=== PATIENT | male | born 1940 | race Caucasian/White ===

== ENCOUNTER 2019-02-16 16:50 | Outpatient (RCR) | payer MEDICARE, OTHER, SELFPAY | END 2019-03-01 00:01 | LOC: WOUND 16:50 | PROVIDERS: Family Provider Family Medicine; Visit Provider Nurse Practitioner Family | DX: D64.9 Anemia, unspecified (principal); L89.312 Pressure ulcer of right buttock, stage 2; L89.892 Pressure ulcer of other site, stage 2; L89.222 Pressure ulcer of left hip, stage 2 ==

== ENCOUNTER 2019-04-22 08:55 | Outpatient (CLI) | payer MEDICARE, OTHER, SELFPAY ==
--- NOTE | 2019-04-22 09:02 | FL_ITS ---
WS: [id number] [place] upper GI w air [id number] REASON FOR EXAM: ESOPHAGEAL LESION FLUOROSCOPY TIME: 3 minutes FINDINGS: Barium passed through the esophagus there was no obstructing lesion no diverticulum or mass es seen The vallecula were normal in the hypopharynx. There is deviation of the esophagus slightly towards the left side. The stomach appeared to be normal there is no ulcerated areas seen in the stomach. The duodenal cap d uodenal C curve proximal small bowel were all normal. IMPRESSION: The esophagus was patent there was no deformity seen. The stomach, duodenum, and small bowel all appear to be within normal limits.
== END 2019-04-22 08:56 | disposition home or self-care (01) ==
LOC: RAD 08:58
PROVIDERS: Family Provider Family Medicine; PCP Family Medicine; Visit Provider Surgery
DX: K22.9 Disease of esophagus, unspecified (principal)
CPT/HCPCS: 74246

== ENCOUNTER 2020-06-03 05:39 | Inpatient (IN) | payer OTHER, MEDICARE, SELFPAY ==
[2020-06-03] VITALS (94 sets, daily range): BP systolic 62–112; BP diastolic 40–85; PULSE 75–157; RESP 13–36; TEMP 35.8–37.1; O2SAT 86–99; BMI 27.8
--- NOTE | 2020-06-03 05:48 | XRR_ITS ---
PROCEDURE INFORMATION: Exam: XR Chest Exam date and time: 06/03/2020 5:52 AM Age: 80 years old Clinical indication: Patient HX: Found unresponsive TECHNIQUE: Imaging protocol: XR of the chest Views: 1 view. COMPARISON: CR Chest 1 [place] [id number] 01/22/2019 10:59 AM FINDINGS: Lungs: No CHF/pulmonary edema. Mild right lower lung opacities could represent atelectasis and/or pneumonia. Please correlate clinically. The visible left lung appears essentially clear. Pleural spaces: No visible pneumothorax. No definite pleural fluid. Heart/Mediastinum: Heart size is within normal limits. Diaphragm: Elevation of the right hemidiaphragm. Bones/joints: No significant acute finding. Other findings: Some limitations due to patient rotation. XR/XR chest 1V portable [id number] IMPRESSION: 1. Mild right lower lung opacities could represent atelectasis and/or pneumonia. 2. Other findings discussed above.
--- NOTE | 2020-06-03 05:48 | ECG_ITS ---
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 Measurements Intervals [place] Rate: 124 P: 44 DC: 181 QRS: 39 QRSD: 90 T: 56 QT: 397 QTc: 572 Interpretive Statements SINUS TACHYCARDIA POSSIBLE RIGHT VENTRICULAR CONDUCTION DELAY [RSR (QR) IN V1/V2] NONSPECIFIC ST & T-WAVE ABNORMALITY ABNORMAL RHYTHM ECG Compared to ECG 01/22/2019 10:12:36 T-wave abnormality now present Sinus rhythm no longer present Electronically Signed On 06-03-2020 22:46:54 CDT by Breezy Villagomez M.D. [id number]
[2020-06-03 05:49] LABS: Glucose Point of Care 149 mg/dL (70-110)
[2020-06-03] MEDS: naloxone 0.4 mg/ml SDV IVP (05:54)
--- NOTE | 2020-06-03 05:55 | ED_ITS ---
Documented by User: Kyler Cooper, 06/03/20 06:09 HPI - General Adult General: Chief complaint: General Medical Stated complaint: unresponsive Time Seen by Provider: 06/03/20 05:47 History of Present Illness: HPI narrative: 80-year-old [facility] patient, who is currently a DNR. He was found to be unresponsive in the [facility] at the time to give medications this morning. His O2 sat was evidently 50% on 3 L. 911 was called. He presents here unresponsive with a GCS of 3. His blood pressure was incredibly low, and he was given push dose epinephrine to raise it. He is on 15 L of oxygen, with saturations in the mid 80s. Other information not really available at this time. His has just arrived, and notes that last week, he had a birthday, and was doing quite well. She also notes that he has not been taking Coumadin, as he had a bleeding ulcer and his blood count kept falling. In the fpc, they had given him some morphine at 1 point. Paramedics gave him 0.4 of Narcan without any improvement Onset (ago): unknown Radiation: non-radiation Severity: moderate Associated symptoms: Reports other Treatments prior to arrival: other Review of Systems General: Reports: ROS unobtainable due to medical condition and ROS unobtainable due to mental status PFS ED PFSH: Medical History Asthma CHF (congestive heart failure) COPD (chronic obstructive pulmonary disease) Depression Essential tremor History of anal fissures Hypertension Morbid obesity Surgical History History of colonoscopy (~2009) History of esophagogastroduodenoscopy (EGD) (~12/2018) History of hemorrhoidectomy History of knee surgery (~2010) Family History Mother Diabetes Sister Diabetes Daughter Hypertension Father Heart disease Denies family history of Anesthesia complication Bleeding disorder Social History Smoking and tobacco status: former smoker Quit status (tobacco): has quit using tobacco Second hand smoke exposure: No Alcohol intake: never Adopted: No Caregiver/support person: Yes Lives independently: No (fpc ) Housing: Longterm Marital status: Highest education level completed: High School Graduate service: No Current occupational status: disabled Current occupational exposures/hazards: No Pets and animals: No History of recent travel: No Sexually active: No Current gender identity: Male Jillian/Taoist: [employer] Special jillian needs: No Agree to transfusion: No Financial difficulty paying for basics: Decline to Answer Physical Exam Const: EXAM LIMITATIONS: altered mental status GENERAL APPEARANCE: ill appearing ORIENTATION/CONSCIOUSNESS: Yes Other orientation findings (Unresponsive) Chest: CHEST: Yes Symmetrical chest wall rise Resp: EFFORT & INSPECTION: Yes tachypneic and Yes respiratory distress AUSCULTATION: rales and diminished lung sounds Cardio: COMMON NORMALS: regular rhythm RATE: tachycardic RHYTHM: regular rhythm PERIPHERAL PULSES: brachial pulses present GI: INSPECTION: Yes abdominal distension AUSCULTATION: Yes normoactive bow el sounds Neuro: ALBINA COMA SCALE: document GCS findings Albina coma scale eye opening: None [place] coma scale verbal response: None [place] coma scale motor response: None [place] coma scale total score: 3 SENSORIUM/ORIENTATION: Yes other (Unresponsive) SPEECH: Total aphasia Course Vital Signs: Vital signs: Vital Signs Temperature 96.5 F L 06/03/20 05:39 Pulse Rate 83 06/03/20 16:14 Respiratory Rate 14 06/03/20 16:00 Blood Pressure 83/67 06/03/20 13:38 Pulse Oximetry 97 06/03/20 16:00 MDM - General Adult MDM Narrative: Medical decision making narrative: 80-year-old [facility] patient who is a DNR. He presents unresponsive, but with a pulse and blood pressure. He is quite hypoxic on exam. He is tachycardic now. Blood pressure 100/73. He was immediately placed on BiPAP with improvement in oxygenation to 95%. Blood gas as well as other laboratory and chest x-ray are pending. Patient will be checked out to Dr. Olmedo at shift change. Lab Data: Labs: Lab Results 06/03/20 06/03/20 06/03/20 Range/Units 05:44 05:44 05:44 WBC 18.1 H (4.0-10.0) 10^3/ uL RBC 4.15 (4.1-5.3) 10^6/u L Hgb 12.6 (11.7-16.6) g/dL Hct 42.1 (42.0-52.0) % MCV 101.4 H (80-94) fL MCH 30.4 (28.0-34.0) pg MCHC 29.9 L (30.0-36.0) g/dL RDW 15.7 H (12.1-15.1) % Plt Count 345 (130-400) 10^3/c mm MPV 10.5 H (7.4-10.4) fL Neut % (Auto) 84.8 % Lymph % (Auto) 6.5 % Motley % (Auto) 7.6 % Eos % (Auto) 0.1 % Baso % (Auto) 0.3 % Neut # (Auto) 15.36 H (1.8-7.7) 10^3/u L Lymph # (Auto) 1.2 (0.8-4.8) 10^3/u L Motley # (Auto) 1.4 H (0.2-0.9) 10^3/u L Eos # (Auto) 0.0 (0.0-0.8) 10^3/u L Baso # (Auto) 0.1 (0.0-0.1) 10^3/u L Nucleated RBC % (a uto) 0 % Nucleated RBCs # 0.0 /100WBC PT 15.10 H (12.1-14.9) SECO NDS INR 1.15 (0.8-1.2) APTT 29.0 (23.9-36.7) SECO NDS Specimen Type Sample Site ABG pH (7.35-7.45) ABG pCO2 (35-45) mmHg ABG pO2 (80.0-100.0) mmH g ABG HCO3 (22-26) mmol/L ABG O2 Saturation ABG Base Excess (-2.0-2.0) mmol/ L Russ Test A-a O2 Gradient (5-10) mmHg Hematocrit (42-52) % Hgb O2 Saturation (95-100) % Carboxyhemoglobin (0.4-20.1) %THgb Methemoglobin (0.4-1.5) % Total Hemoglobin (14-18) g/dL Ionized Calcium (1.1-1.4) mmol/L O2 Delivery Device O2 Liters/Min % FiO2 % Assistant Housekeeping Manager ID Sodium 141 (136-145) mmol/L Potassium 3.8 (3.5-5.1) mmol/L Chloride 102 (98-107) mmol/L Carbon Dioxide 24 (22-29) mmol/L Anion Gap 18.8 (5-19) BUN 22 (8-23) mg/dL Creatinine 0.8 (0.7-1.2) mg/dL GFR Calculation Not Reportable Glucose 151 H (65-115) mg/dL POC Glucose (70-110) mg/dL Calculated Osmolal ity 298 H (285-295) mOsm/k g Lactate (0.5-2.2) mmol/L Calcium 8.2 L (8.5-10.5) mg/dL Magnesium (1.7-2.3) mg/dL Total Bilirubin 0.6 (0.15-1.2) mg/dL AST 32 (0-40) U/L ALT 116 H (0-41) U/L Alkaline Phosphata se 129 (40-130) IU/L Creatine Kinase 23 L (39-308) U/L Troponin T Baselin e (0-15) ng/L Troponin T 120 Min [place] (0-15) ng/L Delta Troponin T (0-10) ABS# Troponin T Hi Sens 6Hr (0-15) ng/L Troponin T Hi Sens 6Hr Delta (0-12) ng/L NT-Pro-B Natriuret Pep 377 (0-450) pg/mL Total Protein 5.8 L (6.6-8.7) g/dL Albumin 3.3 L (3.5-5.2) g/dL Globulin 2.5 (1.3-4.6) g/dL Urine Color (Yellow) Urine Appearance (CLEAR) Urine pH (5-7) Ur Specific Gravit y (1.005-1.030) Urine Protein (Negative) Urine Glucose (UA) (Normal) Urine Ketones (Negative) Urine Blood (Negative) Urine Nitrate (Negative) Urine Bilirubin (Negative) Urine Urobilinogen (Negative) mg/dL Ur Leukocyte Grace ase (Negative) Urine RBC (0-2) /hpf Urine WBC (0-5) /hpf Ur Squamous Epith Cells (0-5) /hpf Amorphous Sediment /hpf Urine Bacteria (NONE) /hpf Hyaline Casts /lpf Urine Mucus /hpf 06/03/20 06/03/20 06/03/20 Range/Units 05:44 05:44 05:46 WBC (4.0-10.0) 10^3/ uL RBC (4.1-5.3) 10^6/u L Hgb (11.7-16.6) g/dL Hct (42.0-52.0) % MCV (80-94) fL MCH (28.0-34.0) pg MCHC (30.0-36.0) g/dL RDW (12.1-15.1) % Plt Count (130-400) 10^3/c mm MPV (7.4-10.4) fL Neut % (Auto) % Lymph % (Auto) % Motley % (Auto) % Eos % (Auto) % Baso % (Auto) % Neut # (Auto) (1.8-7.7) 10^3/u L Lymph # (Auto) (0.8-4.8) 10^3/u L Motley # (Auto) (0.2-0.9) 10^3/u L Eos # (Auto) (0.0-0.8) 10^3/u L Baso # (Auto) (0.0-0.1) 10^3/u L Nucleated RBC % (a uto) % Nucleated RBCs # /100WBC PT (12.1-14.9) SECO NDS INR (0.8-1.2) APTT (23.9-36.7) SECO NDS Specimen Type Sample Site ABG pH (7.35-7.45) ABG pCO2 (35-45) mmHg ABG pO2 (80.0-100.0) mmH g ABG HCO3 (22-26) mmol/L ABG O2 Saturation ABG Base Excess (-2.0-2.0) mmol/ L Russ Test A-a O2 Gradient (5-10) mmHg Hematocrit (42-52) % Hgb O2 Saturation (95-100) % Carboxyhemoglobin (0.4-20.1) %THgb Methemoglobin (0.4-1.5) % Total Hemoglobin (14-18) g/dL Ionized Calcium (1.1-1.4) mmol/L O2 Delivery Device O2 Liters/Min % FiO2 % Assistant Housekeeping Manager ID Sodium (136-145) mmol/L Potassium (3.5-5.1) mmol/L Chloride (98-107) mmol/L Carbon Dioxide (22-29) mmol/L Anion Gap (5-19) BUN (8-23) mg/dL Creatinine (0.7-1.2) mg/dL GFR Calculation Glucose (65-115) mg/dL POC Glucose 149 H (70-110) mg/dL Calculated Osmolal ity (285-295) mOsm/k g Lactate (0.5-2.2) mmol/L Calcium (8.5-10.5) mg/dL Magnesium 2.0 (1.7-2.3) mg/dL Total Bilirubin (0.15-1.2) mg/dL AST (0-40) U/L ALT (0-41) U/L Alkaline Phosphata se (40-130) IU/L Creatine Kinase (39-308) U/L Troponin T Baselin e 128 H* (0-15) ng/L Troponin T 120 Min [place] (0-15) ng/L Delta Troponin T (0-10) ABS# Troponin T Hi Sens 6Hr (0-15) ng/L Troponin T Hi Sens 6Hr Delta (0-12) ng/L NT-Pro-B Natriuret Pep (0-450) pg/mL Total Protein (6.6-8.7) g/dL Albumin (3.5-5.2) g/dL Globulin (1.3-4.6) g/dL Urine Color (Yellow) Urine Appearance (CLEAR) Urine pH (5-7) Ur Specific Gravit y (1.005-1.030) Urine Protein (Negative) Urine Glucose (UA) (Normal) Urine Ketones (Negative) Urine Blood (Negative) Urine Nitrate (Negative) Urine Bilirubin (Negative) Urine Urobilinogen (Negative) mg/dL Ur Leukocyte Grace ase (Negative) Urine RBC (0-2) /hpf Urine WBC (0-5) /hpf Ur Squamous Epith Cells (0-5) /hpf Amorphous Sediment /hpf Urine Bacteria (NONE) /hpf Hyaline Casts /lpf Urine Mucus /hpf 06/03/20 06/03/20 06/03/20 Range/Units 06:06 06:12 07:19 WBC (4.0-10.0) 10^3/ uL RBC (4.1-5.3) 10^6/u L Hgb (11.7-16.6) g/dL Hct (42.0-52.0) % MCV (80-94) fL MCH (28.0-34.0) pg MCHC (30.0-36.0) g/dL RDW (12.1-15.1) % Plt Count (130-400) 10^3/c mm MPV (7.4-10.4) fL Neut % (Auto) % Lymph % (Auto) % Motley % (Auto) % Eos % (Auto) % Baso % (Auto) % Neut # (Auto) (1.8-7.7) 10^3/u L Lymph # (Auto) (0.8-4.8) 10^3/u L Motley # (Auto) (0.2-0.9) 10^3/u L Eos # (Auto) (0.0-0.8) 10^3/u L Baso # (Auto) (0.0-0.1) 10^3/u L Nucleated RBC % (a uto) % Nucleated RBCs # /100WBC PT (12.1-14.9) SECO NDS INR (0.8-1.2) APTT (23.9-36.7) SECO NDS Specimen Type Arterial Sample Site Brachial, right ABG pH 7.15 L* (7.35-7.45) ABG pCO2 71.3 H* (35-45) mmHg ABG pO2 40.5 L (80.0-100.0) mmH g ABG HCO3 24.9 (22-26) mmol/L ABG O2 Saturation ABG Base Excess -5.4 L (-2.0-2.0) mmol/ L Russ Test N/a A-a O2 Gradient (5-10) mmHg Hematocrit 42.3 (42-52) % Hgb O2 Saturation (95-100) % Carboxyhemoglobin (0.4-20.1) %THgb Methemoglobin (0.4-1.5) % Total Hemoglobin (14-18) g/dL Ionized Calcium (1.1-1.4) mmol/L O2 Delivery Device Nrb O2 Liters/Min 15.0 % FiO2 % Assistant Housekeeping Manager ID Hinja Sodium (136-145) mmol/L Potassium (3.5-5.1) mmol/L Chloride (98-107) mmol/L Carbon Dioxide (22-29) mmol/L Anion Gap (5-19) BUN (8-23) mg/dL Creatinine (0.7-1.2) mg/dL GFR Calculation Glucose (65-115) mg/dL POC Glucose (70-110) mg/dL Calculated Osmolal ity (285-295) mOsm/k g Lactate 4.8 H* (0.5-2.2) mmol/L Calcium (8.5-10.5) mg/dL Magnesium (1.7-2.3) mg/dL Total Bilirubin (0.15-1.2) mg/dL AST (0-40) U/L ALT (0-41) U/L Alkaline Phosphata se (40-130) IU/L Creatine Kinase (39-308) U/L Troponin T Baselin e (0-15) ng/L Troponin T 120 Min [place] (0-15) ng/L Delta Troponin T (0-10) ABS# Troponin T Hi Sens 6Hr (0-15) ng/L Troponin T Hi Sens 6Hr Delta (0-12) ng/L NT-Pro-B Natriuret Pep (0-450) pg/mL Total Protein (6.6-8.7) g/dL Albumin (3.5-5.2) g/dL Globulin (1.3-4.6) g/dL Urine Color Yellow (Yellow) Urine Appearance Sl cloudy A (CLEAR) Urine pH 5 (5-7) Ur Specific Gravit y 1.020 (1.005-1.030) Urine Protein 1+ H (Negative) Urine Glucose (UA) Norm (Normal) Urine Ketones Negative (Negative) Urine Blood 3+ H (Negative) Urine Nitrate Negative (Negative) Urine Bilirubin 1+ H (Negative) Urine Urobilinogen 8 H (Negative) mg/dL Ur Leukocyte Grace ase Negative (Negative) Urine RBC 25-40 H (0-2) /hpf Urine WBC 5-10 H (0-5) /hpf Ur Squamous Epith Cells 0-4 H (0-5) /hpf Amorphous Sediment 2+ /hpf Urine Bacteria 1+ H (NONE) /hpf Hyaline Casts 15-25 H /lpf Urine Mucus 2+ /hpf 06/03/20 06/03/20 06/03/20 Range/Units 08:19 08:19 08:20 WBC (4.0-10.0) 10^3/ uL RBC (4.1-5.3) 10^6/u L Hgb (11.7-16.6) g/dL Hct (42.0-52.0) % MCV (80-94) fL MCH (28.0-34.0) pg MCHC (30.0-36.0) g/dL RDW (12.1-15.1) % Plt Count (130-400) 10^3/c mm MPV (7.4-10.4) fL Neut % (Auto) % Lymph % (Auto) % Motley % (Auto) % Eos % (Auto) % Baso % (Auto) % Neut # (Auto) (1.8-7.7) 10^3/u L Lymph # (Auto) (0.8-4.8) 10^3/u L Motley # (Auto) (0.2-0.9) 10^3/u L Eos # (Auto) (0.0-0.8) 10^3/u L Baso # (Auto) (0.0-0.1) 10^3/u L Nucleated RBC % (a uto) % Nucleated RBCs # /100WBC PT (12.1-14.9) SECO NDS INR (0.8-1.2) APTT (23.9-36.7) SECO NDS Specimen Type Arterial Sample Site Brachial, left ABG pH 7.25 L (7.35-7.45) ABG pCO2 55.7 H (35-45) mmHg ABG pO2 60.7 L (80.0-100.0) mmH g ABG HCO3 24.1 (22-26) mmol/L ABG O2 Saturation 90.0 ABG Base Excess -4.1 L (-2.0-2.0) mmol/ L Russ Test N/a A-a O2 Gradient 58.2 H (5-10) mmHg Hematocrit 45.6 (42-52) % Hgb O2 Saturation 88.2 L (95-100) % Carboxyhemoglobin 1.2 (0.4-20.1) %THgb Methemoglobin 0.8 (0.4-1.5) % Total Hemoglobin 14.9 (14-18) g/dL Ionized Calcium 1.2 (1.1-1.4) mmol/L O2 Delivery Device Bipap O2 Liters/Min % FiO2 80.0 % Assistant Housekeeping Manager ID Amh Sodium 138.0 (136-145) mmol/L Potassium 4.0 (3.5-5.1) mmol/L Chloride (98-107) mmol/L Carbon Dioxide (22-29) mmol/L Anion Gap (5-19) BUN (8-23) mg/dL Creatinine (0.7-1.2) mg/dL GFR Calculation Glucose 131.0 H (65-115) mg/dL POC Glucose (70-110) mg/dL Calculated Osmolal ity (285-295) mOsm/k g Lactate (0.5-2.2) mmol/L Calcium (8.5-10.5) mg/dL Magnesium 1.9 (1.7-2.3) mg/dL Total Bilirubin (0.15-1.2) mg/dL AST (0-40) U/L ALT (0-41) U/L Alkaline Phosphata se (40-130) IU/L Creatine Kinase (39-308) U/L Troponin T Baselin e (0-15) ng/L Troponin T 120 Min [place] 166.0 H (0-15) ng/L Delta Troponin T 38.0 H* (0-10) ABS# Troponin T Hi Sens 6Hr (0-15) ng/L Troponin T Hi Sens 6Hr Delta (0-12) ng/L NT-Pro-B Natriuret Pep (0-450) pg/mL Total Protein (6.6-8.7) g/dL Albumin (3.5-5.2) g/dL Globulin (1.3-4.6) g/dL Urine Color (Yellow) Urine Appearance (CLEAR) Urine pH (5-7) Ur Specific Gravit y (1.005-1.030) Urine Protein (Negative) Urine Glucose (UA) (Normal) Urine Ketones (Negative) Urine Blood (Negative) Urine Nitrate (Negative) Urine Bilirubin (Negative) Urine Urobilinogen (Negative) mg/dL Ur Leukocyte Grace ase (Negative) Urine RBC (0-2) /hpf Urine WBC (0-5) /hpf Ur Squamous Epith Cells (0-5) /hpf Amorphous Sediment /hpf Urine Bacteria (NONE) /hpf Hyaline Casts /lpf Urine Mucus /hpf 06/03/20 Range/Units 12:00 WBC (4.0-10.0) 10^3/ uL RBC (4.1-5.3) 10^6/u L Hgb (11.7-16.6) g/dL Hct (42.0-52.0) % MCV (80-94) fL MCH (28.0-34.0) pg MCHC (30.0-36.0) g/dL RDW (12.1-15.1) % Plt Count (130-400) 10^3/c mm MPV (7.4-10.4) fL Neut % (Auto) % Lymph % (Auto) % Motley % (Auto) % Eos % (Auto) % Baso % (Auto) % Neut # (Auto) (1.8-7.7) 10^3/u L Lymph # (Auto) (0.8-4.8) 10^3/u L Motley # (Auto) (0.2-0.9) 10^3/u L Eos # (Auto) (0.0-0.8) 10^3/u L Baso # (Auto) (0.0-0.1) 10^3/u L Nucleated RBC % (a uto) % Nucleated RBCs # /100WBC PT (12.1-14.9) SECO NDS INR (0.8-1.2) APTT (23.9-36.7) SECO NDS Specimen Type Sample Site ABG pH (7.35-7.45) ABG pCO2 (35-45) mmHg ABG pO2 (80.0-100.0) mmH g ABG HCO3 (22-26) mmol/L ABG O2 Saturation ABG Base Excess (-2.0-2.0) mmol/ L Russ Test A-a O2 Gradient (5-10) mmHg Hematocrit (42-52) % Hgb O2 Saturation (95-100) % Carboxyhemoglobin (0.4-20.1) %THgb Methemoglobin (0.4-1.5) % Total Hemoglobin (14-18) g/dL Ionized Calcium (1.1-1.4) mmol/L O2 Delivery Device O2 Liters/Min % FiO2 % Assistant Housekeeping Manager ID Sodium (136-145) mmol/L Potassium (3.5-5.1) mmol/L Chloride (98-107) mmol/L Carbon Dioxide (22-29) mmol/L Anion Gap (5-19) BUN (8-23) mg/dL Creatinine (0.7-1.2) mg/dL GFR Calculation Glucose (65-115) mg/dL POC Glucose (70-110) mg/dL Calculated Osmolal ity (285-295) mOsm/k g Lactate (0.5-2.2) mmol/L Calcium (8.5-10.5) mg/dL Magnesium (1.7-2.3) mg/dL Total Bilirubin (0.15-1.2) mg/dL AST (0-40) U/L ALT (0-41) U/L Alkaline Phosphata se (40-130) IU/L Creatine Kinase (39-308) U/L Troponin T Baselin e (0-15) ng/L Troponin T 120 Min [place] (0-15) ng/L Delta Troponin T (0-10) ABS# Troponin T Hi Sens 6Hr 210.9 H (0-15) ng/L Troponin T Hi Sens 6Hr Delta 82.9 H* (0-12) ng/L NT-Pro-B Natriuret Pep (0-450) pg/mL Total Protein (6.6-8.7) g/dL Albumin (3.5-5.2) g/dL Globulin (1.3-4.6) g/dL Urine Color (Yellow) Urine Appearance (CLEAR) Urine pH (5-7) Ur Specific Gravit y (1.005-1.030) Urine Protein (Negative) Urine Glucose (UA) (Normal) Urine Ketones (Negative) Urine Blood (Negative) Urine Nitrate (Negative) Urine Bilirubin (Negative) Urine Urobilinogen (Negative) mg/dL Ur Leukocyte Grace ase (Negative) Urine RBC (0-2) /hpf Urine WBC (0-5) /hpf Ur Squamous Epith Cells (0-5) /hpf Amorphous Sediment /hpf Urine Bacteria (NONE) /hpf Hyaline Casts /lpf Urine Mucus /hpf Discharge Plan Discharge Patient Disposition: Admitted As Inpatient Admit Provider: Fausto Sanchez Coding Level of Care Code ED [employer] Worker for Chg Fwd Exam Detailed Documented by User: Arielle Olmedo MD 06/03/20 17:01 HPI - General Adult General: Chief complaint: General Medical Stated complaint: unresponsive Time Seen by Provider: 06/03/20 05:47 PFSH ED PFSH: Medical History Asthma CHF (congestive heart failure) COPD (chronic obstructive pulmonary disease) Depression Essential tremor History of anal fissures Hypertension Morbid obesity Surgical History History of colonoscopy (~2009) History of esophagogastroduodenoscopy (EGD) (~12/2018) History of hemorrhoidectomy History of knee surgery (~2010) Family History Mother Diabetes Sister Diabetes Daughter Hypertension Father Heart disease Denies family history of Anesthesia complication Bleeding disorder Social History Smoking and tobacco status: former smoker Quit status (tobacco): has quit using tobacco Second hand smoke exposure: No Alcohol intake: never Adopted: No Caregiver/support person: Yes Lives independently: No (fpc ) Housing: Longterm Marital status: Highest education level completed: High School Graduate service: No Current occupational status: disabled Current occupational exposures/hazards: No Pets and animals: No History of recent travel: No Sexually active: No Current gender identity: Male Jillian/Taoist: [employer] Special jillian needs: No Agree to transfusion: No Financial difficulty paying for basics: Decline to Answer Course Vital Signs: Vital signs: Vital Signs Temperature 96.5 F L 06/03/20 05:39 Pulse Rate 83 06/03/20 16:14 Respiratory Rate 14 06/03/20 16:00 Blood Pressure 83/67 06/03/20 13:38 Pulse Oximetry 97 06/03/20 16:00 MDM - General Adult MDM Narrative: Medical decision making narrative: This patient was signed out to me by Dr. Cooper at 06 100. He is an 80-year-old fpc patient who was found by staff this morning unresponsive, hypotensive, and hypoxic with O2 sats in the 50s on his baseline NC O2 3 L. no improvement with narcan. When he arrived in the ED, O2 sats were 90 on a nonrebreather, respiratory rate 36, hypotensive at 100/73, respiratory rate 36. He was started on BiPAP. And O2 sats increased to the mid 90s. Initial ABG pH 7.152, PCO2 71, PaO2 40.5. Bicarb 25. Initial EKG sinus tachycardia. Chest x-ray shows right lower lobe pneumonia. Empirically started on Vanco and Zosyn for treatment of suspected sepsis secondary to aspiration pneumonia. Initial troponin 128. No baseline available. History of pulmonary embolism, but warfarin has been discontinued secondary to GI bleed. Initially he seemed to be improving, I was able to wean down his oxygen on the BiPAP to 75%, but then he went into a rapid rhythm; SVT versus aflutter with RVR. Blood pressure dropped. He was given a dose of metoprolol which improved his rate, but we had a lot of difficulty obtaining blood pressure readings. CT chest confirmed bilateral infiltrates, worse on the right, with characteristics suggestive of pneumonitis, as well as collapse of the right middle lobe. Spoke with , [facility]. He does not feel that transfer at this point for bronchoscopy will be of much benefit to the patient, and he does not feel that the acute respiratory will dramatically improve with intervention, especially if the patient wants limited invasive/aggressive management. He agreed with continued noninvasive ventilatory support, IV antibiotics, respiratory therapy, and admission to the ICU here for continued monitoring. The patient's is here in the room with the patient, and confirms his D NR/DNI/comfort care status. Discussed the case with Dr. Morgan, hospitalist, he accepts the admission to the ICU. Lab Data: Labs: Lab Results 06/03/20 06/03/20 06/03/20 Range/Units 05:44 05:44 05:44 WBC 18.1 H (4.0-10.0) 10^3/ uL RBC 4.15 (4.1-5.3) 10^6/u L Hgb 12.6 (11.7-16.6) g/dL Hct 42.1 (42.0-52.0) % MCV 101.4 H (80-94) fL MCH 30.4 (28.0-34.0) pg MCHC 29.9 L (30.0-36.0) g/dL RDW 15.7 H (12.1-15.1) % Plt Count 345 (130-400) 10^3/c mm MPV 10.5 H (7.4-10.4) fL Neut % (Auto) 84.8 % Lymph % (Auto) 6.5 % Motley % (Auto) 7.6 % Eos % (Auto) 0.1 % Baso % (Auto) 0.3 % Neut # (Auto) 15.36 H (1.8-7.7) 10^3/u L Lymph # (Auto) 1.2 (0.8-4.8) 10^3/u L Motley # (Auto) 1.4 H (0.2-0.9) 10^3/u L Eos # (Auto) 0.0 (0.0-0.8) 10^3/u L Baso # (Auto) 0.1 (0.0-0.1) 10^3/u L Nucleated RBC % (a uto) 0 % Nucleated RBCs # 0.0 /100WBC PT 15.10 H (12.1-14.9) SECO NDS INR 1.15 (0.8-1.2) APTT 29.0 (23.9-36.7) SECO NDS Specimen Type Sample Site ABG pH (7.35-7.45) ABG pCO2 (35-45) mmHg ABG pO2 (80.0-100.0) mmH g ABG HCO3 (22-26) mmol/L ABG O2 Saturation ABG Base Excess (-2.0-2.0) mmol/ L Russ Test A-a O2 Gradient (5-10) mmHg Hematocrit (42-52) % Hgb O2 Saturation (95-100) % Carboxyhemoglobin (0.4-20.1) %THgb Methemoglobin (0.4-1.5) % Total Hemoglobin (14-18) g/dL Ionized Calcium (1.1-1.4) mmol/L O2 Delivery Device O2 Liters/Min % FiO2 % Assistant Housekeeping Manager ID Sodium 141 (136-145) mmol/L Potassium 3.8 (3.5-5.1) mmol/L Chloride 102 (98-107) mmol/L Carbon Dioxide 24 (22-29) mmol/L Anion Gap 18.8 (5-19) BUN 22 (8-23) mg/dL Creatinine 0.8 (0.7-1.2) mg/dL GFR Calculation Not Reportable Glucose 151 H (65-115) mg/dL POC Glucose (70-110) mg/dL Calculated Osmolal ity 298 H (285-295) mOsm/k g Lactate (0.5-2.2) mmol/L Calcium 8.2 L (8.5-10.5) mg/dL Magnesium (1.7-2.3) mg/dL Total Bilirubin 0.6 (0.15-1.2) mg/dL AST 32 (0-40) U/L ALT 116 H (0-41) U/L Alkaline Phosphata se 129 (40-130) IU/L Creatine Kinase 23 L (39-308) U/L Troponin T Baselin e (0-15) ng/L Troponin T 120 Min [place] (0-15) ng/L Delta Troponin T (0-10) ABS# Troponin T Hi Sens 6Hr (0-15) ng/L Troponin T Hi Sens 6Hr Delta (0-12) ng/L NT-Pro-B Natriuret Pep 377 (0-450) pg/mL Total Protein 5.8 L (6.6-8.7) g/dL Albumin 3.3 L (3.5-5.2) g/dL Globulin 2.5 (1.3-4.6) g/dL Urine Color (Yellow) Urine Appearance (CLEAR) Urine pH (5-7) Ur Specific Gravit y (1.005-1.030) Urine Protein (Negative) Urine Glucose (UA) (Normal) Urine Ketones (Negative) Urine Blood (Negative) Urine Nitrate (Negative) Urine Bilirubin (Negative) Urine Urobilinogen (Negative) mg/dL Ur Leukocyte Grace ase (Negative) Urine RBC (0-2) /hpf Urine WBC (0-5) /hpf Ur Squamous Epith Cells (0-5) /hpf Amorphous Sediment /hpf Urine Bacteria (NONE) /hpf Hyaline Casts /lpf Urine Mucus /hpf 06/03/20 06/03/20 06/03/20 Range/Units 05:44 05:44 05:46 WBC (4.0-10.0) 10^3/ uL RBC (4.1-5.3) 10^6/u L Hgb (11.7-16.6) g/dL Hct (42.0-52.0) % MCV (80-94) fL MCH (28.0-34.0) pg MCHC (30.0-36.0) g/dL RDW (12.1-15.1) % Plt Count (130-400) 10^3/c mm MPV (7.4-10.4) fL Neut % (Auto) % Lymph % (Auto) % Motley % (Auto) % Eos % (Auto) % Baso % (Auto) % Neut # (Auto) (1.8-7.7) 10^3/u L Lymph # (Auto) (0.8-4.8) 10^3/u L Motley # (Auto) (0.2-0.9) 10^3/u L Eos # (Auto) (0.0-0.8) 10^3/u L Baso # (Auto) (0.0-0.1) 10^3/u L Nucleated RBC % (a uto) % Nucleated RBCs # /100WBC PT (12.1-14.9) SECO NDS INR (0.8-1.2) APTT (23.9-36.7) SECO NDS Specimen Type Sample Site ABG pH (7.35-7.45) ABG pCO2 (35-45) mmHg ABG pO2 (80.0-100.0) mmH g ABG HCO3 (22-26) mmol/L ABG O2 Saturation ABG Base Excess (-2.0-2.0) mmol/ L Russ Test A-a O2 Gradient (5-10) mmHg Hematocrit (42-52) % Hgb O2 Saturation (95-100) % Carboxyhemoglobin (0.4-20.1) %THgb Methemoglobin (0.4-1.5) % Total Hemoglobin (14-18) g/dL Ionized Calcium (1.1-1.4) mmol/L O2 Delivery Device O2 Liters/Min % FiO2 % Assistant Housekeeping Manager ID Sodium (136-145) mmol/L Potassium (3.5-5.1) mmol/L Chloride (98-107) mmol/L Carbon Dioxide (22-29) mmol/L Anion Gap (5-19) BUN (8-23) mg/dL Creatinine (0.7-1.2) mg/dL GFR Calculation Glucose (65-115) mg/dL POC Glucose 149 H (70-110) mg/dL Calculated Osmolal ity (285-295) mOsm/k g Lactate (0.5-2.2) mmol/L Calcium (8.5-10.5) mg/dL Magnesium 2.0 (1.7-2.3) mg/dL Total Bilirubin (0.15-1.2) mg/dL AST (0-40) U/L ALT (0-41) U/L Alkaline Phosphata se (40-130) IU/L Creatine Kinase (39-308) U/L Troponin T Baselin e 128 H* (0-15) ng/L Troponin T 120 Min [place] (0-15) ng/L Delta Troponin T (0-10) ABS# Troponin T Hi Sens 6Hr (0-15) ng/L Troponin T Hi Sens 6Hr Delta (0-12) ng/L NT-Pro-B Natriuret Pep (0-450) pg/mL Total Protein (6.6-8.7) g/dL Albumin (3.5-5.2) g/dL Globulin (1.3-4.6) g/dL Urine Color (Yellow) Urine Appearance (CLEAR) Urine pH (5-7) Ur Specific Gravit y (1.005-1.030) Urine Protein (Negative) Urine Glucose (UA) (Normal) Urine Ketones (Negative) Urine Blood (Negative) Urine Nitrate (Negative) Urine Bilirubin (Negative) Urine Urobilinogen (Negative) mg/dL Ur Leukocyte Grace ase (Negative) Urine RBC (0-2) /hpf Urine WBC (0-5) /hpf Ur Squamous Epith Cells (0-5) /hpf Amorphous Sediment /hpf Urine Bacteria (NONE) /hpf Hyaline Casts /lpf Urine Mucus /hpf 06/03/20 06/03/20 06/03/20 Range/Units 06:06 06:12 07:19 WBC (4.0-10.0) 10^3/ uL RBC (4.1-5.3) 10^6/u L Hgb (11.7-16.6) g/dL Hct (42.0-52.0) % MCV (80-94) fL MCH (28.0-34.0) pg MCHC (30.0-36.0) g/dL RDW (12.1-15.1) % Plt Count (130-400) 10^3/c mm MPV (7.4-10.4) fL Neut % (Auto) % Lymph % (Auto) % Motley % (Auto) % Eos % (Auto) % Baso % (Auto) % Neut # (Auto) (1.8-7.7) 10^3/u L Lymph # (Auto) (0.8-4.8) 10^3/u L Motley # (Auto) (0.2-0.9) 10^3/u L Eos # (Auto) (0.0-0.8) 10^3/u L Baso # (Auto) (0.0-0.1) 10^3/u L Nucleated RBC % (a uto) % Nucleated RBCs # /100WBC PT (12.1-14.9) SECO NDS INR (0.8-1.2) APTT (23.9-36.7) SECO NDS Specimen Type Arterial Sample Site Brachial, right ABG pH 7.15 L* (7.35-7.45) ABG pCO2 71.3 H* (35-45) mmHg ABG pO2 40.5 L (80.0-100.0) mmH g ABG HCO3 24.9 (22-26) mmol/L ABG O2 Saturation ABG Base Excess -5.4 L (-2.0-2.0) mmol/ L Russ Test N/a A-a O2 Gradient (5-10) mmHg Hematocrit 42.3 (42-52) % Hgb O2 Saturation (95-100) % Carboxyhemoglobin (0.4-20.1) %THgb Methemoglobin (0.4-1.5) % Total Hemoglobin (14-18) g/dL Ionized Calcium (1.1-1.4) mmol/L O2 Delivery Device Nrb O2 Liters/Min 15.0 % FiO2 % Assistant Housekeeping Manager ID Hinja Sodium (136-145) mmol/L Potassium (3.5-5.1) mmol/L Chloride (98-107) mmol/L Carbon Dioxide (22-29) mmol/L Anion Gap (5-19) BUN (8-23) mg/dL Creatinine (0.7-1.2) mg/dL GFR Calculation Glucose (65-115) mg/dL POC Glucose (70-110) mg/dL Calculated Osmolal ity (285-295) mOsm/k g Lactate 4.8 H* (0.5-2.2) mmol/L Calcium (8.5-10.5) mg/dL Magnesium (1.7-2.3) mg/dL Total Bilirubin (0.15-1.2) mg/dL AST (0-40) U/L ALT (0-41) U/L Alkaline Phosphata se (40-130) IU/L Creatine Kinase (39-308) U/L Troponin T Baselin e (0-15) ng/L Troponin T 120 Min [place] (0-15) ng/L Delta Troponin T (0-10) ABS# Troponin T Hi Sens 6Hr (0-15) ng/L Troponin T Hi Sens 6Hr Delta (0-12) ng/L NT-Pro-B Natriuret Pep (0-450) pg/mL Total Protein (6.6-8.7) g/dL Albumin (3.5-5.2) g/dL Globulin (1.3-4.6) g/dL Urine Color Yellow (Yellow) Urine Appearance Sl cloudy A (CLEAR) Urine pH 5 (5-7) Ur Specific Gravit y 1.020 (1.005-1.030) Urine Protein 1+ H (Negative) Urine Glucose (UA) Norm (Normal) Urine Ketones Negative (Negative) Urine Blood 3+ H (Negative) Urine Nitrate Negative (Negative) Urine Bilirubin 1+ H (Negative) Urine Urobilinogen 8 H (Negative) mg/dL Ur Leukocyte Grace ase Negative (Negative) Urine RBC 25-40 H (0-2) /hpf Urine WBC 5-10 H (0-5) /hpf Ur Squamous Epith Cells 0-4 H (0-5) /hpf Amorphous Sediment 2+ /hpf Urine Bacteria 1+ H (NONE) /hpf Hyaline Casts 15-25 H /lpf Urine Mucus 2+ /hpf 06/03/20 06/03/20 06/03/20 Range/Units 08:19 08:19 08:20 WBC (4.0-10.0) 10^3/ uL RBC (4.1-5.3) 10^6/u L Hgb (11.7-16.6) g/dL Hct (42.0-52.0) % MCV (80-94) fL MCH (28.0-34.0) pg MCHC (30.0-36.0) g/dL RDW (12.1-15.1) % Plt Count (130-400) 10^3/c mm MPV (7.4-10.4) fL Neut % (Auto) % Lymph % (Auto) % Motley % (Auto) % Eos % (Auto) % Baso % (Auto) % Neut # (Auto) (1.8-7.7) 10^3/u L Lymph # (Auto) (0.8-4.8) 10^3/u L Motley # (Auto) (0.2-0.9) 10^3/u L Eos # (Auto) (0.0-0.8) 10^3/u L Baso # (Auto) (0.0-0.1) 10^3/u L Nucleated RBC % (a uto) % Nucleated RBCs # /100WBC PT (12.1-14.9) SECO NDS INR (0.8-1.2) APTT (23.9-36.7) SECO NDS Specimen Type Arterial Sample Site Brachial, left ABG pH 7.25 L (7.35-7.45) ABG pCO2 55.7 H (35-45) mmHg ABG pO2 60.7 L (80.0-100.0) mmH g ABG HCO3 24.1 (22-26) mmol/L ABG O2 Saturation 90.0 ABG Base Excess -4.1 L (-2.0-2.0) mmol/ L Russ Test N/a A-a O2 Gradient 58.2 H (5-10) mmHg Hematocrit 45.6 (42-52) % Hgb O2 Saturation 88.2 L (95-100) % Carboxyhemoglobin 1.2 (0.4-20.1) %THgb Methemoglobin 0.8 (0.4-1.5) % Total Hemoglobin 14.9 (14-18) g/dL Ionized Calcium 1.2 (1.1-1.4) mmol/L O2 Delivery Device Bipap O2 Liters/Min % FiO2 80.0 % Assistant Housekeeping Manager ID Amh Sodium 138.0 (136-145) mmol/L Potassium 4.0 (3.5-5.1) mmol/L Chloride (98-107) mmol/L Carbon Dioxide (22-29) mmol/L Anion Gap (5-19) BUN (8-23) mg/dL Creatinine (0.7-1.2) mg/dL GFR Calculation Glucose 131.0 H (65-115) mg/dL POC Glucose (70-110) mg/dL Calculated Osmolal ity (285-295) mOsm/k g Lactate (0.5-2.2) mmol/L Calcium (8.5-10.5) mg/dL Magnesium 1.9 (1.7-2.3) mg/dL Total Bilirubin (0.15-1.2) mg/dL AST (0-40) U/L ALT (0-41) U/L Alkaline Phosphata se (40-130) IU/L Creatine Kinase (39-308) U/L Troponin T Baselin e (0-15) ng/L Troponin T 120 Min [place] 166.0 H (0-15) ng/L Delta Troponin T 38.0 H* (0-10) ABS# Troponin T Hi Sens 6Hr (0-15) ng/L Troponin T Hi Sens 6Hr Delta (0-12) ng/L NT-Pro-B Natriuret Pep (0-450) pg/mL Total Protein (6.6-8.7) g/dL Albumin (3.5-5.2) g/dL Globulin (1.3-4.6) g/dL Urine Color (Yellow) Urine Appearance (CLEAR) Urine pH (5-7) Ur Specific Gravit y (1.005-1.030) Urine Protein (Negative) Urine Glucose (UA) (Normal) Urine Ketones (Negative) Urine Blood (Negative) Urine Nitrate (Negative) Urine Bilirubin (Negative) Urine Urobilinogen (Negative) mg/dL Ur Leukocyte Grace ase (Negative) Urine RBC (0-2) /hpf Urine WBC (0-5) /hpf Ur Squamous Epith Cells (0-5) /hpf Amorphous Sediment /hpf Urine Bacteria (NONE) /hpf Hyaline Casts /lpf Urine Mucus /hpf 06/03/20 Range/Units 12:00 WBC (4.0-10.0) 10^3/ uL RBC (4.1-5.3) 10^6/u L Hgb (11.7-16.6) g/dL Hct (42.0-52.0) % MCV (80-94) fL MCH (28.0-34.0) pg MCHC (30.0-36.0) g/dL RDW (12.1-15.1) % Plt Count (130-400) 10^3/c mm MPV (7.4-10.4) fL Neut % (Auto) % Lymph % (Auto) % Motley % (Auto) % Eos % (Auto) % Baso % (Auto) % Neut # (Auto) (1.8-7.7) 10^3/u L Lymph # (Auto) (0.8-4.8) 10^3/u L Motley # (Auto) (0.2-0.9) 10^3/u L Eos # (Auto) (0.0-0.8) 10^3/u L Baso # (Auto) (0.0-0.1) 10^3/u L Nucleated RBC % (a uto) % Nucleated RBCs # /100WBC PT (12.1-14.9) SECO NDS INR (0.8-1.2) APTT (23.9-36.7) SECO NDS Specimen Type Sample Site ABG pH (7.35-7.45) ABG pCO2 (35-45) mmHg ABG pO2 (80.0-100.0) mmH g ABG HCO3 (22-26) mmol/L ABG O2 Saturation ABG Base Excess (-2.0-2.0) mmol/ L Russ Test A-a O2 Gradient (5-10) mmHg Hematocrit (42-52) % Hgb O2 Saturation (95-100) % Carboxyhemoglobin (0.4-20.1) %THgb Methemoglobin (0.4-1.5) % Total Hemoglobin (14-18) g/dL Ionized Calcium (1.1-1.4) mmol/L O2 Delivery Device O2 Liters/Min % FiO2 % Assistant Housekeeping Manager ID Sodium (136-145) mmol/L Potassium (3.5-5.1) mmol/L Chloride (98-107) mmol/L Carbon Dioxide (22-29) mmol/L Anion Gap (5-19) BUN (8-23) mg/dL Creatinine (0.7-1.2) mg/dL GFR Calculation Glucose (65-115) mg/dL POC Glucose (70-110) mg/dL Calculated Osmolal ity (285-295) mOsm/k g Lactate (0.5-2.2) mmol/L Calcium (8.5-10.5) mg/dL Magnesium (1.7-2.3) mg/dL Total Bilirubin (0.15-1.2) mg/dL AST (0-40) U/L ALT (0-41) U/L Alkaline Phosphata se (40-130) IU/L Creatine Kinase (39-308) U/L Troponin T Baselin e (0-15) ng/L Troponin T 120 Min [place] (0-15) ng/L Delta Troponin T (0-10) ABS# Troponin T Hi Sens 6Hr 210.9 H (0-15) ng/L Troponin T Hi Sens 6Hr Delta 82.9 H* (0-12) ng/L NT-Pro-B Natriuret Pep (0-450) pg/mL Total Protein (6.6-8.7) g/dL Albumin (3.5-5.2) g/dL Globulin (1.3-4.6) g/dL Urine Color (Yellow) Urine Appearance (CLEAR) Urine pH (5-7) Ur Specific Gravit y (1.005-1.030) Urine Protein (Negative) Urine Glucose (UA) (Normal) Urine Ketones (Negative) Urine Blood (Negative) Urine Nitrate (Negative) Urine Bilirubin (Negative) Urine Urobilinogen (Negative) mg/dL Ur Leukocyte Grace ase (Negative) Urine RBC (0-2) /hpf Urine WBC (0-5) /hpf Ur Squamous Epith Cells (0-5) /hpf Amorphous Sediment /hpf Urine Bacteria (NONE) /hpf Hyaline Casts /lpf Urine Mucus /hpf Critical Care Time Critical Care Time: Critical Care Time: Yes Total Critical Care Time: 40 Attestation: This case had a high probability of a clinically significant, sudden, or life threatening deterioration of this patient's condition which required my full and direct attention, intervention and personal management. 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
[2020-06-03 06:05] LABS: Arterial Blood Gas Hematocrit 42.3 % (42-52); Base Excess ABG -5.4 mmol/L (-2.0-2.0); Blood Gas Sample Site Brachial, right; Blood Gas Sample Type Arterial; HCO3 ABG 24.9 mmol/L (22-26); Oxygen Device NRB; PO2 ABG 40.5 mmHg (80.0-100.0)
[2020-06-03 06:06] LABS: ABG PCO2 71.3 mmHg (35-45); ABG PH Result 7.15 (7.35-7.45)
[2020-06-03 06:06] LABS: Basophils # 0.1 10^3/uL (0.0-0.1); Basophils % 0.3 %; Eosinophils % 0.1 %; Hematocrit 42.1 % (42.0-52.0); Hemoglobin 12.6 g/dL (11.7-16.6); Lymphocytes # 1.2 10^3/uL (0.8-4.8); Lymphocytes % 6.5 %; Mean Corpuscular HGB Conc 29.9 g/dL (30.0-36.0); Mean Corpuscular Hemoglobin 30.4 pg (28.0-34.0); Mean Corpuscular Volume 101.4 fL (80-94); Mean Platelet Volume 10.5 fL (7.4-10.4); Monocytes # 1.4 10^3/uL (0.2-0.9); Monocytes % 7.6 %; Neutrophils # 15.36 10^3/uL (1.8-7.7); Neutrophils % 84.8 %; Nucleated Red Blood Cells % 0 %; Platelet Count 345 10^3/cmm (130-400); Red Blood Count 4.15 10^6/uL (4.1-5.3); Red Cell Distribution Width 15.7 % (12.1-15.1); White Blood Count 18.1 10^3/uL (4.0-10.0)
[2020-06-03 06:23] LABS: Troponin(5th) Baseline 128 ng/L (0-15)
[2020-06-03 06:24] LABS: Protein Urine 1+ (Negative); Urine Color Yellow (Yellow); pH Urine 5 (5-7)
[2020-06-03 06:25] LABS: Add Urine Microscopic? YES; Bilirubin Urine 1+ (Negative); Blood Urine 3+ (Negative); Glucose Urine UA Norm (Normal); Ketones Urine Negative (Negative); Leukocyte Esterase Urine Negative (Negative); Nitrate Urine Negative (Negative); Urobilinogen Urine 8 mg/dL (Negative)
[2020-06-03 06:27] LABS: Add Urine Culture? Yes; Amorphous Sediment Urine 2+ /hpf; Bacteria Urine 1+ /hpf; Hyaline Casts Urine 15-25 /lpf; Mucus Urine 2+ /hpf; RBC Urine 25-40 /hpf (0-2); Squamous Epithelial Cell Urine 0-4 /hpf (0-5)
[2020-06-03 06:35] LABS: INR 1.15 (0.8-1.2)
[2020-06-03 06:37] LABS: Alanine Aminotransferase 116 U/L (0-41); Albumin Level 3.3 g/dL (3.5-5.2); Alkaline Phosphatase 129 IU/L (40-130); Anion Gap 18.8 (5-19); Aspartate Amino Transferase 32 U/L (0-40); Blood Urea Nitrogen 22 mg/dL (8-23); Calcium 8.2 mg/dL (8.5-10.5); Carbon Dioxide 24 mmol/L (22-29); Chloride 102 mmol/L (98-107); Creatine Phosphokinase 23 U/L (39-308); Creatinine Clr Calc Pharmacy 83.4473; Globulin 2.5 g/dL (1.3-4.6); Glucose 151 mg/dL (65-115); NT Pro B Type Natriuretic Pept 377 pg/mL (0-450); Osmolality Calculated 298 mOsm/kg (285-295); Potassium 3.8 mmol/L (3.5-5.1); Sodium 141 mmol/L (136-145); Total Bilirubin 0.6 mg/dL (0.15-1.2); Total Protein 5.8 g/dL (6.6-8.7)
[2020-06-03] MEDS: piperacillin-tazobactam 3.375 GM in sodium chloride 0.9% (plus) 50 ML IV (06:40)
[2020-06-03] MEDS: sodium chloride 0.9% 500 ML 999 ML IV (06:40)
[2020-06-03] MEDS: vancomycin 1,500 MG/300 ML PIGGYBACK 200 MG IV (07:42)
--- NOTE | 2020-06-03 07:48 | ECG_ITS ---
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 Measurements Intervals [place] Rate: 121 P: 39 WI: 166 QRS: 36 QRSD: 75 T: 49 QT: 407 QTc: 579 Interpretive Statements SINUS TACHYCARDIA POSSIBLE RIGHT VENTRICULAR CONDUCTION DELAY [RSR (QR) IN V1/V2] NONSPECIFIC T-WAVE ABNORMALITY ABNORMAL RHYTHM ECG Compared to ECG 06/03/2020 05:40:41 No significant changes Electronically Signed On 06-03-2020 22:54:50 CDT by Breezy Villagomez M.D. [id number]
[2020-06-03] MEDS: ipratropium-albuterol 3 mL Neb INHALATION (07:50)
--- NOTE | 2020-06-03 08:07 | CTR_ITS ---
PROCEDURE INFORMATION: Exam: CTA Chest With Contrast Exam date and time: 06/03/2020 8:40 AM Age: 80 years old Clinical indication: Dyspnea; Additional info: Acute hypoxic respiratory failure, TECHNIQUE: Imaging protocol: Computed tomographic angiography of the chest with contrast. 3D rendering (Not supervised by radiologist): MIP reconstructed images were created by the technologist. Radiation optimization: All CT scans at this facility use at least one of these dose optimization techniques: automated exposure control; mA and/or kV adjustment per patient size (includes targeted exams where dose is matched to clinical indication); or iterative reconstruction. Contrast material: VISIPAQUE 320; Contrast volume: 71 ml; Contrast route: INTRAVENOUS (IV); COMPARISON: CR XR chest 1V portable [id number] 06/03/2020 5:47 AM RADIATION DOSE METRICS: Total DLP (mGy-cm): 560.99 FINDINGS: Pulmonary arteries: No pulmonary artery embolism identified. Aorta: Mild aortic arch and descending thoracic aortic atherosclerotic calcification without ectasia. Thyroid: The bilateral thyroid lobes are unremarkable. Lungs: Dense consolidative densities in the right lower lobe posterior, lateral and anterior basilar segments, less confluent in the peripheral and central right lower lobe superior segment, with additional patchy bilateral right predominant upper lobe opacities. Right middle lobe collapse. Additional smaller airspace opacities in the left lower lobe. Pleural spaces: No pneumothorax. No pleural effusion. Heart: Normal. No pericardial effusion. Mediastinal space: Right lung volume loss with mediastinal shift to the right. Left hilar granulomatous sherry calcifications are present. Lymph nodes: No enlarged lymph nodes. Gallbladder and bile ducts: The gallbladder is surgically absent. Spleen: The spleen demonstrates several small calcifications consistent with healed granulomatous disease. Stomach and bowel: Right anterior subdiaphragmatic colonic interposition is present, a normal variant. Bones/joints: Diffuse osteopenia. 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 Soft tissues: Unremarkable. CT/CT angio chest PE protcl [id number] IMPRESSION: 1. No pulmonary artery embolism identified. 2. Right lower lobe consolidative densities, bilateral pulmonary infiltrates. Pneumonitis is likely. Clinical correlation is recommended. 3. Right middle lobe collapse. 4. Prior cholecystectomy. Radiation Dose CTDIVOL = (mGy): DLP = 560.99 (mGy-cm)
[2020-06-03 08:18] LABS: Lactate (Lactic Acid level) 4.8 mmol/L (0.5-2.2)
[2020-06-03] MEDS: diphenhydrAMINE 50 mg/mL SDV 1mL 25 MG IVP (08:29)
[2020-06-03 08:31] LABS: ABG PCO2 55.7 mmHg (35-45); ABG PH Result 7.25 (7.35-7.45); Alveolar-Arterial Oxygen Gradi 58.2 mmHg (5-10); Arterial Blood Gas Hematocrit 45.6 % (42-52); Base Excess ABG -4.1 mmol/L (-2.0-2.0); Blood Gas Operator Identificat AMH; Blood Gas Sample Site Brachial, left; Blood Gas Sample Type Arterial; Carboxyhemoglobin 1.2 %THgb (0.4-20.1); HCO3 ABG 24.1 mmol/L (22-26); HGB O2 Sat 88.2 % (95-100); Ionized Calcium Level - ABG 1.2 mmol/L (1.1-1.4); Methemoglobin 0.8 % (0.4-1.5); Oxygen Device BIPAP; PO2 ABG 60.7 mmHg (80.0-100.0); Total Hemoglobin 14.9 g/dL (14-18)
[2020-06-03] MEDS: iodixanol 320 mg/mL 100mL Btl IV (09:08)
[2020-06-03] MEDS: metoprolol tartrate 1 mg/1 mL SDV 5 mL 5 MG IV (11:41)
--- NOTE | 2020-06-03 11:42 | XRR_ITS ---
PROCEDURE INFORMATION: Exam: XR Chest Exam date and time: 06/03/2020 11:43 AM Age: 80 years old Clinical indication: Shortness of breath; Additional info: Worsening resp status TECHNIQUE: Imaging protocol: XR of the chest Views: Frontal portable semiupright view of the chest. COMPARISON: CR XR chest 1V portable [id number] 06/03/2020 5:47 AM FINDINGS: Tubes, catheters and devices: EKG leads are present overlying the chest. Lungs: Interval consolidative density right pulmonary apex and increased airspace opacity lateral to the right pulmonary hilum. Increased medial consolidation/partial atelectasis right lower lobe. The visible left pulmonary vasculature is normal. Pleural spaces: No definite pleural effusion. No pneumothorax. Heart/Mediastinum: The heart is normal in size and contour. Mediastinum: Stable. Vasculature: Mild aortic arch atherosclerotic calcification without ectasia. Diaphragm: The right hemidiaphragm remains moderately elevated. Bones/joints: Stable. XR/XR chest 1V portable [id number] IMPRESSION: 1. Interval consolidative density right apex, increased right parahilar airspace opacity. Pneumonitis is difficult to exclude. Clinical correlation is recommended. 2. Increased medial consolidation/partial atelectasis right lower lobe.
--- NOTE | 2020-06-03 11:42 | PC.NURSE ---
RN and provider at bedside. Patient EKG read SVT with a heart rate of 177. Instructed to administer 5mg of Metoprolol via IV. Starting blood pressure 131/93. During administration of medication patients blood pressure continued to decrease. Blood pressure 76/51. Provider at bedside. Instructed to stop medication administration as the blood pressure continued to decrease. Total medication administered was 2.5mg, the rest of the medication was discarded in sharp container. Manual blood pressure at this time 57/43. Provider notified and speaking with family concerning patients condition.
--- NOTE | 2020-06-03 11:48 | ECG_ITS ---
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 Measurements Intervals [place] Rate: 172 P: [place]: QRS: 26 QRSD: 73 T: 39 QT: 258 QTc: 437 Interpretive Statements SUPRAVENTRICULAR TACHYCARDIA POSSIBLE RIGHT VENTRICULAR CONDUCTION DELAY [RSR (QR) IN V1/V2] NONSPECIFIC ST & T-WAVE ABNORMALITY CRITICAL TEST RESULT Compared to ECG 06/03/2020 08:12:20 Sinus tachycardia no longer present T-wave abnormality still present Electronically Signed On 06-03-2020 22:54:56 CDT by Breezy Villagomez M.D. [id number]
[2020-06-03 12:42] LABS: Troponin 5 6HR 210.9 ng/L (0-15); Troponin 5 6HR Delta 82.9 ng/L (0-12)
[2020-06-03] MEDS: amiodarone 50 mg/mL SDV 3 mL 150 MG IVP (13:01)
--- NOTE | 2020-06-03 13:06 | CTR_ITS ---
PROCEDURE INFORMATION: Exam: CT Head Without Contrast Exam date and time: 06/03/2020 1:47 PM Age: 80 years old Clinical indication: Altered mental status/memory loss; Additional info: AMS TECHNIQUE: Imaging protocol: Computed tomography of the head without contrast. Radiation optimization: All CT scans at this facility use at least one of these dose optimization techniques: automated exposure control; mA and/or kV adjustment per patient size (includes targeted exams where dose is matched to clinical indication); or iterative reconstruction. COMPARISON: CT head wo con* [id number] 12/18/2018 1:37 AM RADIATION DOSE METRICS: Total DLP (mGy-cm): 951.36 FINDINGS: Brain: Mild hypoattenuating foci are noted in the anterior lateral ventricular periventricular white matter bilaterally. No intracranial hemorrhage. No mass or acute cortical infarction identified. Cerebral ventricles: Prominence of the subarachnoid spaces is consistent with the patient's age of 80 years. Disproportionate enlargement of the lateral ventricles is present with an Goodrich ratio of 45.1%, stable. The anterior third ventricular transverse dimension is 13.6 mm, stable. The fourth ventricle is normal in size. Bones/joints: No acute abnormality. No acute fracture. Paranasal sinuses: Mild inferior right maxillary sinus mucosal thickening. Mastoid air cells: Visualized mastoid air cells are well aerated. Orbital cavity: Right prior cataract surgery with lens replacement. Vasculature: Mild atherosclerotic calcifications are present involving the carotid artery siphons bilaterally. Soft tissues: Unremarkable. CT/CT head wo con* [id number] IMPRESSION: 1. Disproportionate prominence of the lateral and third ventricles, stable. Recommend clinical exclusion of symptoms of normal pressure hydrocephalus. Otherwise, age appropriate supratentorial and infratentorial atrophy. 2. 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 3. No acute intracranial abnormality identified. 4. Incidental paranasal sinus mucosal disease as above. Radiation Dose CTDIVOL = (mGy): DLP = 951.36 (mGy-cm)
--- NOTE | 2020-06-03 13:15 | PM.HP ---
Providers/Chief Complaint Primary Care Provider: Dania Goldberg MD Chief Complaint: unresponsive History of Present Illness Sid Salas is a 80 year old male residing in half-way facility with past medical history of moderate to severe dementia, limited mobility, bedbound probably due to severe spinal stenosis and chronic lower back pain requiring oral morphine and possibly fentanyl patch (per med rec), possible history of COPD and CHF, atrial fibrillation who was brought to emergency room from SNF with altered mental status and labored breathing. Patient's was called this morning and was told about sudden changes in his status. According to his he was okay yesterday, at baseline state of health without new or acute complaints. Emergency room the patient was very lethargic, unresponsive. ABGs revealed hypercapnic and hypoxic respiratory failure, chest x-ray revealed right-sided infiltrates. The patient has significant leukocytosis and lactic acid elevation. The patient received a liter of IV fluids prior to transfer. He received another half a liter in the emergency room. He received vancomycin and Zosyn. He was started on BiPAP. Blood pressure is very soft. Not on pressors yet. EKG revealed supraventricular tachycardia. Adenosine was given. The patient converted to A. fib with RVR. According to the the patient was described by the nursing staff as gurgly this morning. They suspect aspiration. He was given oral morphine last night. The patient has history of similar hospitalization a year ago requiring ICU and intubation. In emergency room patient's reported DNR/DNI status. She does not want the patient to be intubated. She is okay with BiPAP and other conservative management options. ER physician spoke with records management assistant in [place]. They recommended to treat the patient conservatively locally. Review of Systems General: Reports: ROS unobtainable due to medical condition and ROS unobtainable due to mental status Medications/Allergies Home Medications Medication Instructions Recorded Confirmed Last Taken Type acetaminophen 325 mg tablet 650 mg PO Q6H PRN 03/16/19 05/12/19 Unknown History albuterol sulfate 2.5 mg INHALATION Q6H PRN 03/16/19 05/12/19 Unknown History alprazolam 0.5 mg tablet 0.5 mg PO TID PRN 03/16/19 05/12/19 Unknown History azelastine 137 mcg (0.1 %) nasal 2 spray INTRANASAL BID 03/16/19 05/12/19 Unknown History spray aerosol bisacodyl 10 mg rectal suppository 10 mg MI ONCE PRN 03/16/19 05/12/19 Unknown History buspirone 7.5 mg tablet 22.5 mg PO BID tab 03/16/19 05/12/19 Unknown History cetirizine 10 mg capsule 10 mg PO ONCE cap 03/16/19 05/12/19 Unknown History duloxetine 30 mg capsule,delayed 30 mg PO ONCE cap 03/16/19 05/12/19 Unknown History release fentanyl 12 mcg/hr transdermal 1 patch TRANSDERMA Q72H 03/16/19 05/12/19 Unknown History patch ferrous sulfate 325 mg (65 mg 325 mg PO BID 03/16/19 05/12/19 Unknown History iron) tablet fluticasone propionate 230 2 puff INHALATION BID 03/16/19 05/12/19 Unknown History mcg-salmeterol 21 mcg/actuation HFA inhaler furosemide 40 mg tablet 40 mg PO QAM 03/16/19 05/12/19 Unknown History gabapentin 400 mg capsule 400 mg PO TID 03/16/19 05/12/19 Unknown History ipratropium bromide 0.02 % 2.5 ml INHALATION Q6H PRN 03/16/19 05/12/19 Unknown History solution for inhalation losartan 25 mg tablet 25 mg PO ONCE tab 03/16/19 05/12/19 Unknown History pantoprazole 40 mg tablet,delayed 40 mg PO BID tab 03/16/19 05/12/19 Unknown History release polyethylene glycol 3350 17 17 gm PO BID 03/16/19 05/12/19 Unknown History gram/dose oral powder potassium 99 mg tablet 99 mg PO .daily tab 03/16/19 05/12/19 Unknown History primidone 50 mg tablet 100 mg PO Q8H tab 03/16/19 05/12/19 Unknown History sennosides 8.6 mg-docusate sodium 1 tab-cap PO BID PRN 03/16/19 05/12/19 Unknown History 50 mg capsule sodium chloride 0.65 % nasal spray 2 spray INTRANASAL QID PRN 03/16/19 05/12/19 Unknown History aerosol sucralfate 1 gram tablet 1 gm PO Q6H tab 03/16/19 05/12/19 Unknown History tamsulosin 0.4 mg capsule 0.4 mg PO ONCE 03/16/19 05/12/19 Unknown History warfarin 10 mg tablet 10 mg PO ONCE tab 03/16/19 05/12/19 Unknown History Allergies Allergy/AdvReac Type Severity Reaction Status Date / Time celecoxib [From Celebrex] Allergy Unknown Unknown Verified 06/03/20 05:57 cephalexin Allergy Unknown Unknown Verified 06/03/20 05:57 cimetidine [From Tagamet] Allergy Unknown Unknown Verified 06/03/20 05:57 esomeprazole [From Nexium] Allergy Unknown Unknown Verified 06/03/20 05:57 Iodine and Iodide Containing Allergy Unknown Unknown Verified 06/03/20 05:57 Produc latex Allergy Unknown Unknown Verified 06/03/20 05:57 montelukast [From Singulair] Allergy Unknown Unknown Verified 06/03/20 05:57 pantoprazole [From Protonix] Allergy Unknown Unknown Verified 06/03/20 05:57 pneumococcal vaccine Allergy Unknown Unknown Verified 06/03/20 05:57 [From Pneumovax 23] sucralfate [From Carafate] Allergy Unknown Unknown Verified 06/03/20 05:57 PFSH Acute PFSH: Medical History Asthma CHF (congestive heart failure) COPD (chronic obstructive pulmonary disease) Depression Essential tremor History of anal fissures Hypertension Morbid obesity Surgical History History of colonoscopy (~2009) History of esophagogastroduodenoscopy (EGD) (~12/2018) History of hemorrhoidectomy History of knee surgery (~2010) Family History Mother Diabetes Sister Diabetes Daughter Hypertension Father Heart disease Denies family history of Anesthesia complication Bleeding disorder Social History Smoking and tobacco status: former smoker Quit status (tobacco): has quit using tobacco Second hand smoke exposure: No Alcohol intake: never Adopted: No Caregiver/support person: Yes Lives independently: No (fpc ) Housing: Assisted Marital status: Highest education level completed: High School Graduate service: No Current occupational status: disabled Current occupational exposures/hazards: No Pets and animals: No History of recent travel: No Sexually active: No Current gender identity: Male Jillian/Episcopalian: [employer] Special jillian needs: No Agree to transfusion: No Financial difficulty paying for basics: Decline to Answer Vitals/I&O/Wt Last Vital Signs Temp 96.5 F L 06/03/20 05:39 Pulse 102 H 06/03/20 13:03 Resp 18 06/03/20 13:03 BP 104/85 06/03/20 12:31 Pulse Ox 90 06/03/20 13:03 06/02/20 06/03/20 06/03/20 22:59 06:59 14:59 Intake Total 850 / 850 Balance 850 / 850 Weight last 48 hrs Weight 90.718 kg Physical Exam Narrative: EXAM NARRATIVE: The patient is lethargic and disoriented. He tries to open his eyes on request but unable to. Skin is warm and dry. Dry mucous membranes Eyes PERRL. Neck supple. No JVD No facial asymmetry Lungs bilateral coarse breath sounds and crackles worse on the right. Decreased breath sounds bibasilarly. Tachypnea is present with BiPAP. Good tidal volumes. Heart S1, S2, irregularly irregular Abdomen soft, obese, nontender, bowel sounds are present Extremities bilateral edema. No cyanosis no calf tenderness bilaterally Urinary Catheter Management^: Armando: Cath Placed During This Visit: yes Reason for Continuing Indwelling Catheter: Acute Urinary Retention or Obstruction Urinary Catheter Date of Insertion: 06/03/20 Urinary Catheter Time of Insertion: 06:11 Data : 06/03/20 05:44 06/03/20 05:44 Other Labs: Laboratory Results WBC 18.1 10^3/uL (4.0-10.0) H 06/03/20 05:44 RBC 4.15 10^6/uL (4.1-5.3) 06/03/20 05:44 Hgb 12.6 g/dL (11.7-16.6) 06/03/20 05:44 Hct 42.1 % (42.0-52.0) 06/03/20 05:44 MCV 101.4 fL (80-94) H 06/03/20 05:44 MCH 30.4 pg (28.0-34.0) 06/03/20 05:44 MCHC 29.9 g/dL (30.0-36.0) L 06/03/20 05:44 RDW 15.7 % (12.1-15.1) H 06/03/20 05:44 Plt Count 345 10^3/cmm (130-400) 06/03/20 05:44 MPV 10.5 fL (7.4-10.4) H 06/03/20 05:44 Neut % (Auto) 84.8 % 06/03/20 05:44 Lymph % (Auto) 6.5 % 06/03/20 05:44 Bonner % (Auto) 7.6 % 06/03/20 05:44 Eos % (Auto) 0.1 % 06/03/20 05:44 Baso % (Auto) 0.3 % 06/03/20 05:44 Neut # (Auto) 15.36 10^3/uL (1.8-7.7) H 06/03/20 05:44 Lymph # (Auto) 1.2 10^3/uL (0.8-4.8) 06/03/20 05:44 Bonner # (Auto) 1.4 10^3/uL (0.2-0.9) H 06/03/20 05:44 Eos # (Auto) 0.0 10^3/uL (0.0-0.8) 06/03/20 05:44 Baso # (Auto) 0.1 10^3/uL (0.0-0.1) 06/03/20 05:44 Nucleated RBC % (auto) 0 % 06/03/20 05:44 Nucleated RBCs # 0.0 /100WBC 06/03/20 05:44 PT 15.10 SECONDS (12.1-14.9) H 06/03/20 05:44 INR 1.15 (0.8-1.2) 06/03/20 05:44 APTT 29.0 SECONDS (23.9-36.7) 06/03/20 05:44 Specimen Type Arterial 06/03/20 08:20 Sample Site Brachial, left 06/03/20 08:20 ABG pH 7.25 (7.35-7.45) L 06/03/20 08:20 ABG pCO2 55.7 mmHg (35-45) H 06/03/20 08:20 ABG pO2 60.7 mmHg (80.0-100.0) L 06/03/20 08:20 ABG HCO3 24.1 mmol/L (22-26) 06/03/20 08:20 ABG O2 Saturation 90.0 06/03/20 08:20 ABG Base Excess -4.1 mmol/L (-2.0-2.0) L 06/03/20 08:20 Russ Test N/a 06/03/20 08:20 A-a O2 Gradient 58.2 mmHg (5-10) H 06/03/20 08:20 Hematocrit 45.6 % (42-52) 06/03/20 08:20 Hgb O2 Saturation 88.2 % (95-100) L 06/03/20 08:20 Carboxyhemoglobin 1.2 %THgb (0.4-20.1) 06/03/20 08:20 Methemoglobin 0.8 % (0.4-1.5) 06/03/20 08:20 Total Hemoglobin 14.9 g/dL (14-18) 06/03/20 08:20 Sodium 138.0 mmol/L (131-143) 06/03/20 08:20 Potassium 4.0 mmol/L (3.5-5.0) 06/03/20 08:20 Glucose 131.0 mg/dL (70-115) H 06/03/20 08:20 Ionized Calcium 1.2 mmol/L (1.1-1.4) 06/03/20 08:20 O2 Delivery Device Bipap 06/03/20 08:20 O2 Liters/Min 15.0 % 06/03/20 06:06 FiO2 80.0 % 06/03/20 08:20 Entry Level Installation Technician ID [facility] 06/03/20 08:20 Sodium 141 mmol/L (136-145) 06/03/20 05:44 Potassium 3.8 mmol/L (3.5-5.1) 06/03/20 05:44 Chloride 102 mmol/L (98-107) 06/03/20 05:44 Carbon Dioxide 24 mmol/L (22-29) 06/03/20 05:44 Anion Gap 18.8 (5-19) 06/03/20 05:44 BUN 22 mg/dL (8-23) 06/03/20 05:44 Creatinine 0.8 mg/dL (0.7-1.2) 06/03/20 05:44 GFR Calculation Not Reportable 06/03/20 05:44 Glucose 151 mg/dL (65-115) H 06/03/20 05:44 POC Glucose 149 mg/dL (70-110) H 06/03/20 05:46 Calculated Osmolality 298 mOsm/kg (285-295) H 06/03/20 05:44 Lactate 4.8 mmol/L (0.5-2.2) H* 06/03/20 07:19 Calcium 8.2 mg/dL (8.5-10.5) L 06/03/20 05:44 Magnesium 2.0 mg/dL (1.7-2.3) 06/03/20 05:44 Total Bilirubin 0.6 mg/dL (0.15-1.2) 06/03/20 05:44 AST 32 U/L (0-40) 06/03/20 05:44 ALT 116 U/L (0-41) H 06/03/20 05:44 Alkaline Phosphatase 129 IU/L (40-130) 06/03/20 05:44 Creatine Kinase 23 U/L (39-308) L 06/03/20 05:44 Troponin T Baseline 128 ng/L (0-15) H* 06/03/20 05:44 Troponin T 120 Minute 166.0 ng/L (0-15) H 06/03/20 08:19 Delta Troponin T 38.0 ABS# (0-10) H* 06/03/20 08:19 Troponin T Hi Sens 6Hr 210.9 ng/L (0-15) H 06/03/20 12:00 Troponin T Hi Sens 6Hr Delta 82.9 ng/L (0-12) H* 06/03/20 12:00 NT-Pro-B Natriuret Pep 377 pg/mL (0-450) 06/03/20 05:44 Total Protein 5.8 g/dL (6.6-8.7) L 06/03/20 05:44 Albumin 3.3 g/dL (3.5-5.2) L 06/03/20 05:44 Globulin 2.5 g/dL (1.3-4.6) 06/03/20 05:44 Urine Color Yellow (Yellow) 06/03/20 06:12 Urine Appearance Sl cloudy (CLEAR) A 06/03/20 06:12 Urine pH 5 (5-7) 06/03/20 06:12 Ur Specific [place] 1.020 (1.005-1.030) 06/03/20 06:12 Urine Protein 1+ (Negative) H 06/03/20 06:12 Urine Glucose (UA) Norm (Normal) 06/03/20 06:12 Urine Ketones Negative (Negative) 06/03/20 06:12 Urine Blood 3+ (Negative) H 06/03/20 06:12 Urine Nitrate Negative (Negative) 06/03/20 06:12 Urine Bilirubin 1+ (Negative) H 06/03/20 06:12 Urine Urobilinogen 8 mg/dL (Negative) H 06/03/20 06:12 Ur Leukocyte Esterase Negative (Negative) 06/03/20 06:12 Urine RBC 25-40 /hpf (0-2) H 06/03/20 06:12 Urine WBC 5-10 /hpf (0-5) H 06/03/20 06:12 Ur Squamous Epith Cells 0-4 /hpf (0-5) H 06/03/20 06:12 Amorphous Sediment 2+ /hpf 06/03/20 06:12 Urine Bacteria 1+ /hpf (NONE) H 06/03/20 06:12 Hyaline Casts 15-25 /lpf H 06/03/20 06:12 Urine Mucus 2+ /hpf 06/03/20 06:12 Impressions Chest CTA 06/03/20 08:07 IMPRESSION: 1. No pulmonary artery embolism identified. 2. Right lower lobe consolidative densities, bilateral pulmonary infiltrates. Pneumonitis is likely. Clinical correlation is recommended. 3. Right middle lobe collapse. 4. Prior cholecystectomy. Radiation Dose CTDIVOL = (mGy): DLP = 560.99 (mGy-cm) Chest X-Ray 06/03/20 11:42 IMPRESSION: 1. Interval consolidative density right apex, increased right parahilar airspace opacity. Pneumonitis is difficult to exclude. Clinical correlation is recommended. 2. Increased medial consolidation/partial atelectasis right lower lobe. Micro: Microbiology 06/03/20 07:19 Blood Culture - Preliminary Blood SPECIMEN COLLECTED 06/03/20 07:10 Blood Culture - Preliminary Blood SPECIMEN COLLECTED A&P Additional A&P Information 80 year old male residing in half-way facility with past medical history of moderate to severe dementia, limited mobility, bedbound probably due to severe spinal stenosis and chronic lower back pain requiring oral morphine and possibly fentanyl patch (per med rec), possible history of COPD and CHF, atrial fibrillation who was brought to emergency room from SNF with altered mental status and labored breathing. Acute hypoxic and hypercapnic respiratory failure probably secondary to aspiration and aspiration pneumonia. Associated severe sepsis and possible septic shock. Being admitted to ICU in very severe condition. Prognosis is guarded. The patient is DNR and DNI. Conservative management. We will continue BiPAP. We will read. ABG sent adjust the settings as needed. We will suction his upper airways as much as possible. We will use DuoNebs as needed. We will continue IV fluids with caution to avoid fluid overload. We will recheck his lactic acid level. We will continue antibiotics. Due to allergy to cephalosporins will order imipenem. We will continue vancomycin per pharmacy dosing. Acute metabolic encephalopathy on top of chronic dementia. Most likely due to the above. I also suspect that opiates have contributed to his aspiration and changes to his mental status. Will order CT of the head to rule out other acute findings which could cause encephalopathy. N.p.o. for now. Will minimize opiates. Will check TSH. N.p.o. and speech eval. A. fib with RVR. Currently is being administered amiodarone bolus. We will continue amiodarone drip protocol after that. Abnormal troponins probably secondary to above. Demand ischemia is suspected. We will continue close monitoring. Will consider additional testing. When able to take p.o. we will start statin. Beta-delonte is not feasible at this time. Will order rectal aspirin. DVT prophylaxis. Lovenox. CODE STATUS. DNR and DNI. Discussed with his at the bedside. The plan of care was discussed with the patient's . She verbalized understanding, agreement and satisfaction with the conversation. Attestations Medical Necessity Statement*: The patient is being admitted in near critical condition to ICU. Prognosis is guarded. Critical care time spent on this encounter is 55 minutes. Coding Level of Care Code Acute Customer Operations Representative for Tangela Obrien
[2020-06-03 14:07] LABS: Lactic Sepsis W/Reflex 3.1 mmol/L (0.5-2.2)
[2020-06-03 14:13] LABS: Magnesium 1.9 mg/dL (1.7-2.3)
[2020-06-03] MEDS: sodium chloride 0.9% 1,000 ML 999 ML IV (14:54)
[2020-06-03 15:10] LABS: Reflex Lactate Order REFLEX LACTIC ORDERD
[2020-06-03] MEDS: sodium chloride 0.45% 1,000 ML 75 ML IV (15:36)
[2020-06-03] MEDS: enoxaparin 40 mg/0.4 mL Syringe SUBCUT (15:41)
--- NOTE | 2020-06-03 17:14 | PC.SLP ---
Pt unable to participate in FASHION INTERN assessment at this time due to respiratory status. FASHION INTERN will attempt to evaluate tomorrow.
[2020-06-03 17:25] LABS: Lactic Acid level (Lactate) 2.7 mmol/L (0.5-2.2)
--- NOTE | 2020-06-03 18:39 | PC.NURSE ---
1400 on adm. to icu skin searched for fentanyl patch. none found
[2020-06-03] MEDS: vancomycin 1,250 MG/250 ML PIGGYBACK 200 MG IV (20:46)
[2020-06-04] VITALS (103 sets, daily range): BP systolic 75–147; BP diastolic 44–88; PULSE 72–89; RESP 9–24; TEMP 36.5–37.7; O2SAT 92–100
[2020-06-04] MEDS: sodium chloride 0.45% 1,000 ML 75 ML IV ×3 (01:54→22:55)
[2020-06-04] MEDS: morphine 4 mg/mL SDV 1 mL 2 MG IVP (02:41)
[2020-06-04 04:47] LABS: Hematocrit 37.6 % (42.0-52.0); Hemoglobin 11.4 g/dL (11.7-16.6); Mean Corpuscular HGB Conc 30.3 g/dL (30.0-36.0); Mean Corpuscular Hemoglobin 29.7 pg (28.0-34.0); Mean Corpuscular Volume 97.9 fL (80-94); Mean Platelet Volume 11.3 fL (7.4-10.4); Platelet Count 196 10^3/cmm (130-400); Red Blood Count 3.84 10^6/uL (4.1-5.3); Red Cell Distribution Width 15.8 % (12.1-15.1); White Blood Count 11.3 10^3/uL (4.0-10.0)
[2020-06-04 05:19] LABS: NT Pro B Type Natriuretic Pept 5669 pg/mL (0-450); Procalcitonin 8.93 ng/mL (0-0.5); Thyroid Stimulating Hormone 1.24 uIU/mL (0.27-4.20)
[2020-06-04 05:37] LABS: Absolute Segmented Neutrophil 3.7 10/cmm (1.6-7.1); Band Neutrophils Absolute 4.6 10^3/cmm (0.0-1.2); Eosinophils 0 %; Lymphocytes 9 %; Monocytes Absolute 1.4 10^3/cmm (0.1-0.6); Segmented Neutrophils 33 %; Slide Review Slide Review Perform; Total Cells Counted 100 (0-100)
[2020-06-04 05:38] LABS: Absolute Neutrophil 8.4 10^3/cmm (1.4-6.5); Alanine Aminotransferase 64 U/L (0-41); Albumin Level 2.5 g/dL (3.5-5.2); Alkaline Phosphatase 80 IU/L (40-130); Anion Gap 18.8 (5-19); Aspartate Amino Transferase 16 U/L (0-40); Blood Urea Nitrogen 31 mg/dL (8-23); C Reactive Protein 334.2 mg/L (0.0-4.9); Carbon Dioxide 21 mmol/L (22-29); Chloride 100 mmol/L (98-107); Globulin 2.9 g/dL (1.3-4.6); Glucose 126 mg/dL (65-115); Magnesium 1.6 mg/dL (1.7-2.3); Osmolality Calculated 290 mOsm/kg (285-295); Platelet Estimate Normal (Normal); Potassium 3.8 mmol/L (3.5-5.1); Sodium 136 mmol/L (136-145); Total Bilirubin 0.6 mg/dL (0.15-1.2); Total Protein 5.4 g/dL (6.6-8.7)
[2020-06-04] MEDS: ondansetron 2 mg/ML SDV 2 mL 4 MG IVP (08:28)
--- NOTE | 2020-06-04 09:00 | PC.NURSE ---
Patient rates pain in the right arm 10/10 during IV placement. Post placement patient is resting with eyes closed.Appears to be comfortable with a Heart rate 81 RR 13.
[2020-06-04] MEDS: pantoprazole 40 mg SDV IVP (09:45)
[2020-06-04] MEDS: aspirin 300 mg Supp PR (09:49)
--- NOTE | 2020-06-04 10:57 | PC.NURSE ---
Antibiotics: Primaxin and vancomycin started late due to IV access. Other meds given late due to attempting to obtain additional IV access.
[2020-06-04] MEDS: vancomycin 1,250 MG/250 ML PIGGYBACK 200 MG IV (11:03)
--- NOTE | 2020-06-04 11:59 | USCV_ITS ---
Sid Salas Age: 80 Gender: M : 1940 Exam Date: 06/04/2020 13:46 Ordering Phys: Minna Nunez MD Technologist: Jevon Guzman [place] [facility] [place]: CHEST PAIN BP: 101 / 64 HR: 81 Rhythm: Sinus Technical Quality: Technically difficult study MEASUREMENTS (Male / Female) Normal Values 2D ECHO LV Diastolic Diameter PLAX 5.1 cm 4.2 - 5.9 / 3.9 - 5.3 cm LV Systolic Diameter PLAX 3.1 cm IVS Diastolic Thickness 1.4 cm 0.6 - 1.0 / 0.6 - 0.9 cm IVS Systolic Thickness 1.1 cm LVPW Diastolic Thickness 1.7 cm 0.6 - 1.0 / 0.6 - 0.9 cm LVPW Systolic Thickness 1.5 cm LVOT Diameter 2.0 cm LV Ejection Fraction 2D Teich 64.4 % LV Ejection Fraction MOD 2C 55.3 % LV Ejection Fraction 2C AL 55.4 % LA Diameter 4.9 cm LA Width 4.0 cm LA Height 5.3 cm RA Width 3.4 cm RA Height 4.9 cm M-MODE Aortic Annulus Diameter 3.8 cm LA Ao Ratio MM 1.4 MV E Point Septal Separation 1.2 cm DOPPLER AV Peak Velocity 116.0 cm/s LVOT Peak Velocity 86.0 cm/s AV Area Cont Eq vti 2.7 cm squared AV Area Cont Eq pk 2.4 cm squared MV Area PHT 5.0 cm squared Mitral E to A Ratio 0.8 MV E' Velocity 48.0 cm/s Mitral E to MV E' Ratio 14.7 Mitral E to LV E' Lateral Ratio 14.7 Mitral E to LV E' Septal Ratio 14.7 TR Peak Velocity 123.0 cm/s TR Peak Gradient 6.1 mmHg TV Peak E Velocity 78.0 cm/s Right Atrial Pressure 3.0 mmHg Pulmonary Artery Systolic Pressu 9.1 mmHg FINDINGS Left Ventricle Normal left ventricular size. LV systolic function is grossly normal. Regional wall motion abnormalities cannot be assessed because of poor visualization.. Grade 1 diastolic dysfunction. Right Ventricle Not well-visualized Right Atrium Not well visualized Left Atrium Not well-visualized Mitral Valve Grossly normal Aortic Valve Not well visualized. No significant aortic stenosis or regurgitation Tricuspid Valve Not well visualized Pulmonic Valve Not visualized Pericardium Grossly normal Aorta Grossly normal CONCLUSIONS This is technically limited study because of poor visualization of cardiac structures. LV systolic function is grossly normal. Grade 1 diastolic dysfunction. Valvular heart structures are not well-visualized however no gross abnormalities. Comparison with prior echo not possible because of poor ultrasonic windows on the current study Paolo Reyes MD (Electronically Signed) Final Date: 04 June 2020 19:38 S
[2020-06-04] MEDS: azithromycin 500 MG in sodium chloride 0.9% 250 ML 250 MG IV (12:23)
--- NOTE | 2020-06-04 12:27 | PC.NURSE ---
Levophed titrated to 4 mcg/min from 6 mcg/minute. It was on 6 mcg when staff came on shift.
[2020-06-04] MEDS: piperacillin-tazobactam 3.375 GM in sodium chloride 0.9% (plus) 50 ML IV ×2 (13:31→20:26)
--- NOTE | 2020-06-04 13:31 | PC.NURSE ---
Zosyn started late per APR, due to IV medication compatibility.
[2020-06-04] MEDS: enoxaparin 40 mg/0.4 mL Syringe SUBCUT (14:53)
--- NOTE | 2020-06-04 15:37 | PC.CHAP ---
Pastoral Care Encounter/Spiritual Assessment Type of Contact [] Declined bareback rider visit [] Patient/Family/Request visit [] Outpatient visit [] Follow-up visit [] Physician referral [] Code/Alert [] Routine visit [] Staff referral [] Actively dying [] Patient sleeping [] Family support [] [] Out of room [] Palliative care [] [x] Receiving care in room [] Pre-surgical visit [] Trauma [] Long length of stay [] ICU visit [] Other: Relational/Emotional Strength [] Patient feels connected with others/family/visitors/staff [] Distress [] Loneliness/isolation [] Abandonment Spirituality of Patient [] Person of Jillian [] Attends Congregation of their Jillian [] Believes in Prayer [] Reads Bible or Anglican materials [] There are Spiritual issues to be addressed Supervisor Matrix Interventions [] Prayer [] Active listening [] Non-anxious presence [] Spiritual/emotional support [] Crisis/trauma care [] Spiritual counseling [] Bereavement support [] Provided bereavement packet [] Provided Bible/devotional materials [] Provided toy/stuffed animal, coloring book to patient or family member [] Provided Communion [] Anointing/[place] [] Salvation [] Completed spiritual assessment [] Other: Impact on Illness or Injury [] Angry [] Fearful [] Anxious [] Often cries [] Exhaustion [] Unable to work [] Unable to attend taoism [] Unable to walk/stand [] Unable to read [] Unable to drive [] Unable to eat/drink [] Unable to sleep [] Unable to be with family [] Patient intubated [] Other: Summary Time spent with patient
--- NOTE | 2020-06-04 16:24 | PC.RESP ---
Pulmonary Rehab information sent to patient.
--- NOTE | 2020-06-04 16:43 | P.PN_ITS ---
Subjective Subjective: Interval history: Continues to be on norepinephrine infusion at 6 mics per hour, more awake alert oriented this morning, able to correctly tell me his name age date of and that he is in a hospital, recognizes at bedside. Still intermittently drowsy but does wake up on calling name. Medications: Reviewed: Yes Vitals/I&O/Wt Last Vital Signs Temp 98.2 F 06/04/20 12:30 Pulse 75 06/04/20 16:03 Resp 12 06/04/20 16:03 BP 75/49 06/04/20 16:03 Pulse Ox 100 06/04/20 15:45 06/04/20 06/04/20 06/04/20 06:59 14:59 22:59 Intake Total 872.5 / 3620.275 1178.225 / 5072.056 7879.973 / 2195.198 Output Total 300 / 660 137 / 137 Balance 572.5 / 2960.275 1041.225 / 7758.525 6310.973 / 2058.198 Weight last 48 hrs Weight 91.172 kg Weight 90.718 kg Physical Exam Narrative: EXAM NARRATIVE: GENERAL: Awake, lethargic, oriented, HEENT: Normocephalic, atraumatic, PERRLA. [] CHEST: Reduced air entry right infra axillary and mammary areas CVS: S1, S2 normal. No murmur, rubs, gallops. Peripheral pulses palpable. [] ABDOMEN: Soft, nontender. Nondistended. Bowel sounds heard. [] NEUROVASCULAR: Bilateral lower extremity with foot drop, power 2 out of 5, per this is not new. EXTREMITIES: No edema. [] Urinary Catheter Management^: Armando: Cath Placed During This Visit: yes Reason for Continuing Indwelling Catheter: Accurate Measurement of Urinary Output in Critically Ill Patients Urinary Catheter Date of Insertion: 06/03/20 Urinary Catheter Time of Insertion: 06:11 Data : 06/04/20 04:02 06/04/20 04:02 Micro: Microbiology 06/04/20 06:12 Legionella Urinary Antigen - Final Urine,Voided 06/04/20 06:12 Bacterial Antigens - Final Urine,Voided 06/03/20 06:12 Urine Culture - Preliminary Urine Catheterized 06/03/20 07:19 Blood Culture - Preliminary Blood NEGATIVE TO DATE 06/03/20 07:10 Blood Culture - Preliminary Blood NEGATIVE TO DATE A&P Additional A&P Information 80 year old male residing in retirement facility with past medical history of moderate to severe dementia, limited mobility, bedbound probably due to severe spinal stenosis and chronic lower back pain requiring oral morphine and possibly fentanyl patch (per med rec), possible history of COPD and CHF, atrial fibrillation who was brought to emergency room from SNF with altered mental status and labored breathing. Acute hypoxic and hypercapnic respiratory failure probably secondary to aspiration pneumonia. Associated septic shock, currently on pressors. Change imipenem to piperacillin tazobactam, no history of ESBL organisms, continue vancomycin while awaiting MRSA PCR, add azithromycin for atypical coverage. Check urine Legionella and bacterial antigens. Swallow evaluation Sputum culture Blood culture thus far negative to date Leukocytosis improving, T-max 99.9 Fahrenheit. Continue respite support with Levophed, titrate to MAP greater than 65 supplemental 02 as needed Acute metabolic encephalopathy on top of chronic dementia. Likely due to septic shock, improving today NSTEMI: Troponin II hour and 6-hour delta significant. at bedside, discussed that would not want any invasive interventions including an angiogram. We will manage medically. Patient is currently getting aspirin 300 mg rectally. He was previously on warfarin and then Eliquis for history of DVT and PE in 2017, however this needed to be discontinued due to GI bleeding from an antral ulcer. We will check a fecal occult blood, and if negative will place patient on full dose anticoagulation. At discharge may need addition of Plavix along with a baby aspirin. echocardiogram to evalute EF, RWMA A. fib with RVR. Currently on amiodarone infusion, if passes swallow evaluation, will transition to amiodarone orally. DVT prophylaxis. Lovenox. CODE STATUS. DNR and DNI. Discussed with his at the bedside. Attestations Medical Necessity Statement*: septic shock, needs pressors, iv abx and respiratory support Coding Level of Care Code Acute Glue Spreading Machine Operator for Tangela Obrien
--- NOTE | 2020-06-04 19:43 | PC.NURSE ---
All care provided by Jyoti Snowden, student nurse, directly supervised by this nurse or Whit Martínez RN.
--- NOTE | 2020-06-04 19:44 | PC.NURSE ---
Shift summary: Pt rested in bed all day. Pt repostioned throughout the day for comfort. He remains on Amiodarone gtt and Levophed gtt. Levophed gtt increased this evening due to MAP of 56. Pt alert and confused. IV in right AC infiltrated this morning,it was removed. Site unremarkable at this time. New IV to right forearm, US used. His bottom is reddened, stage II, he requests to have pressure relieved periodically. Low urine output, 450-500ml. Speech/swallow eval done, nectar thickened liquids recommended. in at visiting hours.
[2020-06-04 21:33] LABS: Vancomycin Trough 27.7 ug/mL (10-15)
[2020-06-05] VITALS (82 sets, daily range): BP systolic 79–148; BP diastolic 42–78; PULSE 64–94; RESP 10–29; TEMP 36.1–36.9; O2SAT 84–100
[2020-06-05] MEDS: piperacillin-tazobactam 3.375 GM in sodium chloride 0.9% (plus) 50 ML IV ×3 (03:20→20:08)
[2020-06-05] MEDS: vancomycin 1,250 MG/250 ML PIGGYBACK 200 MG IV (04:48)
[2020-06-05 06:03] LABS: Basophils % 0.4 %; Eosinophils # 0.1 10^3/uL (0.0-0.8); Eosinophils % 0.9 %; Hematocrit 31.6 % (42.0-52.0); Hemoglobin 9.7 g/dL (11.7-16.6); Lymphocytes # 0.6 10^3/uL (0.8-4.8); Lymphocytes % 7.3 %; Mean Corpuscular HGB Conc 30.7 g/dL (30.0-36.0); Mean Corpuscular Hemoglobin 29.6 pg (28.0-34.0); Mean Corpuscular Volume 96.3 fL (80-94); Mean Platelet Volume 10.3 fL (7.4-10.4); Monocytes # 0.6 10^3/uL (0.2-0.9); Monocytes % 7.8 %; Neutrophils # 6.23 10^3/uL (1.8-7.7); Neutrophils % 81.5 %; Nucleated Red Blood Cells % 0 %; Platelet Count 138 10^3/cmm (130-400); Red Blood Count 3.28 10^6/uL (4.1-5.3); Red Cell Distribution Width 15.6 % (12.1-15.1); White Blood Count 7.7 10^3/uL (4.0-10.0)
[2020-06-05 06:12] LABS: ABG PH Result 7.35 (7.35-7.45); Arterial Blood Gas Hematocrit 33.9 % (42-52); Base Excess ABG -1.3 mmol/L (-2.0-2.0); Blood Gas Allen Test Pos; Blood Gas Sample Site Radial, left; Blood Gas Sample Type Arterial; HCO3 ABG 24.4 mmol/L (22-26); Oxygen Device NC; PO2 ABG 99.2 mmHg (80.0-100.0)
[2020-06-05 06:31] LABS: Alanine Aminotransferase 39 U/L (0-41); Albumin Level 2.4 g/dL (3.5-5.2); Alkaline Phosphatase 78 IU/L (40-130); Anion Gap 11.9 (5-19); Aspartate Amino Transferase 12 U/L (0-40); Blood Urea Nitrogen 27 mg/dL (8-23); Carbon Dioxide 25 mmol/L (22-29); Chloride 99 mmol/L (98-107); Globulin 2.8 g/dL (1.3-4.6); Glucose 81 mg/dL (65-115); Osmolality Calculated 280 mOsm/kg (285-295); Slide Review Slide Review Perform; Sodium 133 mmol/L (136-145); Total Bilirubin 0.3 mg/dL (0.15-1.2); Total Protein 5.2 g/dL (6.6-8.7)
[2020-06-05 06:32] LABS: Lactate (Lactic Acid level) 1.3 mmol/L (0.5-2.2)
[2020-06-05 06:37] LABS: Potassium 2.9 mmol/L (3.5-5.1)
[2020-06-05] MEDS: lidocaine 1% 5 ML in potassium chloride premix 100 ML 25 ML IV ×2 (07:36→14:38)
--- NOTE | 2020-06-05 09:16 | PC.NURSE ---
Aspirin suppository showed two administrations for yesterday by Jyoti Snowden, student nurse. We were having scanner difficulty yesterday. This nurse verified only one administration given, so second administration undone.
[2020-06-05] MEDS: pantoprazole 40 mg SDV IVP (09:25)
[2020-06-05] MEDS: aspirin 300 mg Supp PR (09:26)
--- NOTE | 2020-06-05 10:40 | PC.NURSE ---
Patient restless, pulling at lines, repeatedly taking off nasal cannula. Patient then pulled out Left Ej, pressure applied until hemostasis occured.
--- NOTE | 2020-06-05 11:34 | PM.PN ---
Subjective Subjective: Interval history: Off Levophed today, blood pressure is maintaining with a MAP of 77. Hypokalemia with potassium of 2.9. Hemoglobin drifted down to 9.7. Leukocytosis now resolved. Afebrile over last 24 hours Medications: Reviewed: Yes Vitals/I&O/Wt Last Vital Signs Temp 98.5 F 06/05/20 08:00 Pulse 67 06/05/20 08:24 Resp 16 06/05/20 08:24 BP 121/78 06/05/20 08:00 Pulse Ox 99 06/05/20 08:24 06/04/20 06/05/20 06/05/20 22:59 06:59 14:59 Intake Total 1721.060 / 2899.285 81.287 / 2980.572 355.987 / 355.987 Output Total 475 / 612 850 / 1462 150 / 150 Balance 1246.060 / 2287.285 -768.713 / 1518.572 205.987 / 205.987 Weight last 48 hrs Weight 92.079 kg Weight 91.172 kg Physical Exam Narrative: EXAM NARRATIVE: GENERAL: Awake, lethargic, oriented, HEENT: Normocephalic, atraumatic, PERRLA. [] CHEST: Reduced air entry right infra axillary and mammary areas CVS: S1, S2 normal. No murmur, rubs, gallops. Peripheral pulses palpable. [] ABDOMEN: Soft, nontender. Nondistended. Bowel sounds heard. [] NEUROVASCULAR: Bilateral lower extremity with foot drop, power 2 out of 5 unchanged over previous exam EXTREMITIES: No edema. [] Urinary Catheter Management^: Armando: Cath Placed During This Visit: yes Reason for Continuing Indwelling Catheter: Accurate Measurement of Urinary Output in Critically Ill Patients Urinary Catheter Date of Insertion: 06/03/20 Urinary Catheter Time of Insertion: 06:11 Data : 06/05/20 05:46 06/05/20 05:46 Micro: Microbiology 06/03/20 06:12 Urine Culture - Final Urine Catheterized 06/04/20 06:12 Legionella Urinary Antigen - Final Urine,Voided 06/04/20 06:12 Bacterial Antigens - Final Urine,Voided 06/03/20 07:19 Blood Culture - Preliminary Blood NEGATIVE TO DATE 06/03/20 07:10 Blood Culture - Preliminary Blood NEGATIVE TO DATE A&P Additional A&P Information 80 year old male residing in half-way facility with past medical history of moderate to severe dementia, limited mobility, bedbound probably due to severe spinal stenosis and chronic lower back pain requiring oral morphine and possibly fentanyl patch (per med rec), possible history of COPD and CHF, atrial fibrillation who was brought to emergency room from SNF with altered mental status and labored breathing. # Acute hypoxic and hypercapnic respiratory failure probably secondary to aspiration pneumonia. Associated septic shock, currently on pressors., This is now resolved, patient is off pressors since this morning. Continue Zosyn and azithromycin, antibiotic day 3 today. Discontinue vancomycin, pending MRSA PCR Negative urine Legionella and bacterial antigens History of Covid in December 2019, has completed 2 dose vaccination series, low suspicion for Covid infection Swallow evaluation appreciated, start mechanical soft diet with nectar thick liquids Sputum culture unable to be obtained as patient not expectorating Blood culture thus far negative to date Leukocytosis and fever now resolved Supplemental oxygen as needed to keep saturation above 92 Continue IV fluids 75 cc an hour for now, once able to initiate p.o. intake, will reduce IV fluids # Acute metabolic encephalopathy on top of chronic dementia. Likely due to septic shock, continues to improve. # NSTEMI: Troponin two hour and 6-hour delta significant. at bedside, discussed that patient would not want any invasive interventions including an angiogram. We will manage medically. Patient is currently getting aspirin 300 mg rectally. He was previously on warfarin and then Eliquis for history of DVT and PE in 2017, however this needed to be discontinued due to GI bleeding from an antral ulcer. We will check a fecal occult blood, this remains pending as no BM yet, Hb drifted down to 9.7 today, holding off full dose A/c for now. A. fib with RVR. Currently on amiodarone infusion transition to po amiodarone now that able to swallow DVT prophylaxis. Lovenox. CODE STATUS. DNR and DNI. Discussed with his at the bedside. Attestations Medical Necessity Statement*: sepsis, improving septic shock, needs ongoing admission for monitring of respiratory status, iv antibiotics Coding Level of Care Code Acute Finish Mill Operator for Tangela Obrien
[2020-06-05] MEDS: amiodarone 200 mg Tablet 400 MG PO ×2 (12:26→17:34)
[2020-06-05] MEDS: azithromycin 500 MG in sodium chloride 0.9% 250 ML 250 MG IV (12:29)
[2020-06-05] MEDS: enoxaparin 40 mg/0.4 mL Syringe SUBCUT (14:38)
--- NOTE | 2020-06-05 15:40 | PC.NURSE ---
During frequent BM incontinent and chintan care episodes, pt on IV line at luer lock access, Skin tear, 1cm, noted on right upper arm. Skin rolled back in place. area cleansed, Optifoam applied. Pt tolerated well.
[2020-06-05] MEDS: acetaminophen 325 mg Tablet 650 MG PO ×2 (17:29→23:10)
[2020-06-05] MEDS: sodium chloride 0.45% 1,000 ML 75 ML IV ×2 (17:34→17:35)
[2020-06-05] MEDS: lanolin oint 7 gm 1 APPLIC TOPICAL (17:57)
--- NOTE | 2020-06-05 19:30 | PC.NURSE ---
All care provided by Jyoti Snowden, student nurse, directly supervised by this nurse.
--- NOTE | 2020-06-05 20:31 | PC.NURSE ---
Shift summary: Pt much more interactive today. His color is pinker. Levophed discontinued. Amiodarone changed to PO. Pt did pull out his left neck IV this morning. Right Forearm IV secured with Coban and a noted that says ' Do not pull'. Pt has been observed reading note, then leaving that IV site alone. His potassium ws low, he received 2 KCL 40 mEq with lidocaine IV today. Tolerated those well . He was provided with a shave and a complete bedbath this am. Then he had multiple liquid BM, sometimes he would start again while getting pericare. Sample sent to lab for occult and C diff. C-diff negative. He has opened are near his rectum which became more sore, evidenced by him saying it hurt, and started bleeding with the incontinence of stools and pericare. Urine output over 1000ml this shift. in at visiting hours.. She assisted him with his dinner, pt has hand tremors bad enough the liquids shake out of the cups. He is on mechanical diet and nectar thickened liquids. Speech therapist assisted and evaluated at lunch.
[2020-06-05] MEDS: HYDROmorphone 1 mg/mL INJ 1 mL 0.4 MG IVP ×2 (20:35→23:56)
[2020-06-06] VITALS (41 sets, daily range): BP systolic 86–141; BP diastolic 51–84; PULSE 62–84; RESP 13–27; TEMP 37.1–37.3; O2SAT 92–100
[2020-06-06] MEDS: HYDROmorphone 1 mg/mL INJ 1 mL 0.5 MG IVP ×3 (02:02→08:42)
[2020-06-06] MEDS: HYDROmorphone 1 mg/mL INJ 1 mL 0.4 MG IVP (03:07)
[2020-06-06] MEDS: piperacillin-tazobactam 3.375 GM in sodium chloride 0.9% (plus) 50 ML IV ×3 (03:08→20:00)
[2020-06-06 04:01] LABS: Basophils % 0.3 %; Eosinophils % 0.5 %; Hematocrit 30.1 % (42.0-52.0); Hemoglobin 9.7 g/dL (11.7-16.6); Lymphocytes # 0.5 10^3/uL (0.8-4.8); Lymphocytes % 6.9 %; Mean Corpuscular HGB Conc 32.2 g/dL (30.0-36.0); Mean Corpuscular Hemoglobin 30.1 pg (28.0-34.0); Mean Corpuscular Volume 93.5 fL (80-94); Mean Platelet Volume 11.1 fL (7.4-10.4); Monocytes # 0.3 10^3/uL (0.2-0.9); Monocytes % 4.2 %; Neutrophils # 5.77 10^3/uL (1.8-7.7); Neutrophils % 86.9 %; Nucleated Red Blood Cells % 0 %; Platelet Count 134 10^3/cmm (130-400); Red Blood Count 3.22 10^6/uL (4.1-5.3); Red Cell Distribution Width 15.2 % (12.1-15.1); White Blood Count 6.6 10^3/uL (4.0-10.0)
[2020-06-06 04:16] LABS: Alanine Aminotransferase 27 U/L (0-41); Albumin Level 2.2 g/dL (3.5-5.2); Alkaline Phosphatase 87 IU/L (40-130); Anion Gap 10.2 (5-19); Aspartate Amino Transferase 12 U/L (0-40); Blood Urea Nitrogen 20 mg/dL (8-23); Calcium 8.2 mg/dL (8.5-10.5); Carbon Dioxide 25 mmol/L (22-29); Chloride 104 mmol/L (98-107); Globulin 2.7 g/dL (1.3-4.6); Glucose 95 mg/dL (65-115); Osmolality Calculated 284 mOsm/kg (285-295); Potassium 3.2 mmol/L (3.5-5.1); Sodium 136 mmol/L (136-145); Total Bilirubin 0.3 mg/dL (0.15-1.2); Total Protein 4.9 g/dL (6.6-8.7)
[2020-06-06 04:25] LABS: Magnesium 1.6 mg/dL (1.7-2.3)
[2020-06-06 05:13] LABS: Slide Review Slide Review Perform
[2020-06-06] MEDS: sodium chloride 0.45% 1,000 ML 75 ML IV (05:35)
[2020-06-06] MEDS: amiodarone 200 mg Tablet 400 MG PO ×2 (08:59→19:06)
[2020-06-06] MEDS: aspirin 81 mg EC Tablet PO (08:59)
[2020-06-06] MEDS: pantoprazole 40 mg SDV IVP (09:00)
--- NOTE | 2020-06-06 10:20 | PC.SOCIAL ---
*IMM UPDATE* Underwriting Operations Manager gave IMM to pt's daughter, Livier via phone. She understood. 06/06/20 @ 1021. Initialed, dated, timed and placed in chart.
--- NOTE | 2020-06-06 10:29 | PC.CHAP ---
Pastoral Care Encounter/Spiritual Assessment Type of Contact [] Declined assistant federal public defender visit [] Patient/Family/Request visit [] Outpatient visit [] Follow-up visit [] Physician referral [] Code/Alert [x] Routine visit [] Staff referral [] Actively dying [] Patient sleeping [] Family support [] [] Out of room [] Palliative care [] [] Receiving care in room [] Pre-surgical visit [] Trauma [] Long length of stay [x] ICU visit [] Other: Relational/Emotional Strength [] Patient feels connected with others/family/visitors/staff [] Distress [] Loneliness/isolation [] Abandonment Spirituality of Patient [] Person of Jillian [] Attends Uatsdin of their Jillian [] Believes in Prayer [] Reads Bible or Jain materials [] There are Spiritual issues to be addressed Videotape Sales Representative Interventions [x] Prayer [] Active listening [] Non-anxious presence [] Spiritual/emotional support [] Crisis/trauma care [] Spiritual counseling [] Bereavement support [] Provided bereavement packet [] Provided Bible/devotional materials [] Provided toy/stuffed animal, coloring book to patient or family member [] Provided Communion [] Anointing/Delta [] Salvation [x] Completed spiritual assessment [] Other: Impact on Illness or Injury [] Angry [] Fearful [] Anxious [] Often cries [] Exhaustion [] Unable to work [] Unable to attend yarsani [] Unable to walk/stand [] Unable to read [] Unable to drive [] Unable to eat/drink [] Unable to sleep [] Unable to be with family [] Patient intubated [] Other: Summary Time spent with patient
[2020-06-06] MEDS: azithromycin 500 MG in sodium chloride 0.9% 250 ML 250 MG IV (12:54)
--- NOTE | 2020-06-06 14:44 | PC.NURSE ---
noticed front tooth broken. i had not noticed it.
--- NOTE | 2020-06-06 15:25 | PM.PN ---
Subjective Subjective: Interval history: Remains off pressors today. Complains of pain, has great pressure injuries and excoriation of the buttocks from recurrent diarrhea. Patient did have multiple episodes of diarrhea yesterday, C. difficile testing negative. Medications: Reviewed: Yes Vitals/I&O/Wt Last Vital Signs Temp 98.5 F 06/05/20 08:00 Pulse 73 06/06/20 14:30 Resp 13 06/06/20 14:30 BP 140/83 06/06/20 13:30 Pulse Ox 100 06/06/20 14:30 06/06/20 06/06/20 06/06/20 06:59 14:59 22:59 Intake Total 950 / 2817.237 720 / 720 Output Total 800 / 950 Balance 150 / 1867.237 720 / 720 Weight last 48 hrs Weight 92.079 kg Physical Exam Narrative: EXAM NARRATIVE: GENERAL: Awake, oriented x2, generalized weakness CHEST: Clear to auscultation bilateral anteriorly CVS: S1, S2 normal. No murmur, rubs, gallops. Peripheral pulses palpable. [] ABDOMEN: Soft, nontender. Nondistended. Bowel sounds heard. [] NEUROVASCULAR: Bilateral lower extremity with foot drop, power 2 out of 5 unchanged over previous exam EXTREMITIES: No edema. [] Urinary Catheter Management^: Armando: Cath Placed During This Visit: yes Reason for Continuing Indwelling Catheter: Accurate Measurement of Urinary Output in Critically Ill Patients Urinary Catheter Date of Insertion: 06/03/20 Urinary Catheter Time of Insertion: 06:11 Data : 06/06/20 03:22 06/06/20 03:22 Micro: Microbiology 06/05/20 15:27 C.difficile Toxin B Gene (PCR) - Final Stool Routine Collection 06/04/20 14:09 MRSA Culture - Final Nose A&P Additional A&P Information 80 year old male residing in long-term facility with past medical history of moderate to severe dementia, limited mobility, bedbound probably due to severe spinal stenosis and chronic lower back pain requiring oral morphine and possibly fentanyl patch (per med rec), possible history of COPD and CHF, atrial fibrillation who was brought to emergency room from SNF with altered mental status and labored breathing. # Acute hypoxic and hypercapnic respiratory failure probably secondary to aspiration pneumonia. Associated septic shock upon admission, now resolved, patient remains off pressors, map is consistently greater than 65 Continue Zosyn, antibiotic day 4 today. MRSA PCR eventually returned positive, last vancomycin trough from the fifth is at 27, will recheck random vancomycin level today, redose Vanco if vancomycin level less than 15. Negative urine Legionella and bacterial antigens History of Covid in December 2019, has completed 2 dose vaccination series, low suspicion for Covid infection Currently on mechanical soft diet with nectar thick liquids Sputum culture unable to be obtained as patient not expectorating Blood culture thus far negative to date Leukocytosis and fever now resolved Supplemental oxygen as needed to keep saturation above 92 Discontinue IV fluids since patient has been able to tolerate oral intake. # Acute metabolic encephalopathy on top of chronic dementia. Likely due to septic shock, this is improved, currently back at baseline mentation # NSTEMI: Troponin two hour and 6-hour delta significant. Discussed with patient and that they would not not want any invasive interventions including an angiogram. We will manage medically. Patient has a past medical history of GI bleeding for which we are proceeding with caution with anticoagulation. FOBT card test obtained at bedside today, negative Hemoccult. Patient denies any chest pain, EKG without any acute ST-T wave changes Continue aspirin 81 mg p.o. daily, since otherwise chest pain-free at this present time without acute ST-T wave changes, no clear advantage to adding Lovenox at this point. Patient has a history of PE DVT, previously on Coumadin and then Eliquis, both of which were discontinued due to episodes of GI bleeding. Troponin leak could be type II [place] from sepsis due to demand supply mismatch. # A. fib with RVR. Currently well controlled, transitioned to p.o. amiodarone 400 twice daily #Hypokalemia and hypomagnesemia, replete IV, target potassium of 4, magnesium 2 #Suboptimal pain management currently: Start hydrocodone and resume home dose of tramadol. Patient's home medication list has morphine listed as 2 mg p.o. every 2 hours as needed, this will need to be confirmed. DVT prophylaxis. Lovenox. CODE STATUS. DNR and DNI. Discussed with his at the bedside. Transfer out of ICU Attestations Medical Necessity Statement*: Resolving sepsis, improving respiratory status, transfer out of ICU to floors today, will still need close monitoring of respiratory status over the next 24 to 48 hours Coding Level of Care Code Acute Shipping/Receiving Clerk for Chg Micah
[2020-06-06] MEDS: enoxaparin 40 mg/0.4 mL Syringe SUBCUT (15:54)
[2020-06-06] MEDS: HYDROcodone-acetaminophen 5-325 mg Tablet 1 TAB PO (17:21)
[2020-06-06] MEDS: lidocaine 1% 5 ML in potassium chloride premix 100 ML 25 ML IV (17:43)
[2020-06-06 18:21] LABS: Vancomycin Random 14.5 ug/mL (20.0-40.0)
[2020-06-07] VITALS (10 sets, daily range): BP systolic 113–132; BP diastolic 68–80; PULSE 66–103; RESP 17–18; TEMP 36.9–37.1; O2SAT 94–98
[2020-06-07] MEDS: piperacillin-tazobactam 3.375 GM in sodium chloride 0.9% (plus) 50 ML IV ×3 (03:51→20:25)
[2020-06-07 05:31] LABS: Basophils % 0.3 %; Eosinophils # 0.1 10^3/uL (0.0-0.8); Eosinophils % 1.5 %; Hematocrit 31.7 % (42.0-52.0); Hemoglobin 10.5 g/dL (11.7-16.6); Lymphocytes # 0.7 10^3/uL (0.8-4.8); Lymphocytes % 11.5 %; Mean Corpuscular HGB Conc 33.1 g/dL (30.0-36.0); Mean Corpuscular Hemoglobin 30.4 pg (28.0-34.0); Mean Corpuscular Volume 91.9 fL (80-94); Mean Platelet Volume 10.8 fL (7.4-10.4); Monocytes # 0.5 10^3/uL (0.2-0.9); Monocytes % 8.7 %; Neutrophils # 4.68 10^3/uL (1.8-7.7); Neutrophils % 76.5 %; Nucleated Red Blood Cells % 0 %; Platelet Count 159 10^3/cmm (130-400); Red Blood Count 3.45 10^6/uL (4.1-5.3); Red Cell Distribution Width 15.1 % (12.1-15.1); White Blood Count 6.1 10^3/uL (4.0-10.0)
[2020-06-07 05:49] LABS: Alanine Aminotransferase 20 U/L (0-41); Albumin Level 2.3 g/dL (3.5-5.2); Alkaline Phosphatase 74 IU/L (40-130); Anion Gap 12.6 (5-19); Aspartate Amino Transferase 11 U/L (0-40); Blood Urea Nitrogen 10 mg/dL (8-23); Calcium 8.3 mg/dL (8.5-10.5); Carbon Dioxide 24 mmol/L (22-29); Chloride 105 mmol/L (98-107); Globulin 2.9 g/dL (1.3-4.6); Glucose 76 mg/dL (65-115); Osmolality Calculated 286 mOsm/kg (285-295); Sodium 139 mmol/L (136-145); Total Bilirubin 0.3 mg/dL (0.15-1.2); Total Protein 5.2 g/dL (6.6-8.7)
[2020-06-07 06:00] LABS: Magnesium 1.6 mg/dL (1.7-2.3)
[2020-06-07 06:13] LABS: Potassium 2.6 mmol/L (3.5-5.1)
[2020-06-07] MEDS: aspirin 81 mg EC Tablet PO (11:16)
[2020-06-07] MEDS: pantoprazole DR 40 mg Tablet PO (11:17)
[2020-06-07] MEDS: lidocaine 1% 5 ML in potassium chloride premix 100 ML 25 ML IV ×2 (11:17→17:37)
[2020-06-07] MEDS: amiodarone 200 mg Tablet 400 MG PO (11:17)
[2020-06-07] MEDS: vancomycin 1,000 MG in sodium chloride 0.9% 250 ML 250 MG IV (12:26)
[2020-06-07] MEDS: potassium chloride oral liq 20 mEq/15 mL UDC 40 MEQ PO (12:26)
--- NOTE | 2020-06-07 14:42 | ECG_ITS ---
[facility] ED Test Date: 2020-06-07 Pat Name: Sid Salas Department: Room: 261 Gender: Male Turbo Operator: : [id number] Requested By: Minna Nunez Order Number: [id number] Jose MD: Oneyda Anders M.D. Measurements Intervals [place] Rate: 81 P: 49 AK: 182 QRS: 5 QRSD: 85 T: 43 QT: 393 QTc: 459 Interpretive Statements SINUS RHYTHM WITH OCCASIONAL SUPRAVENTRICULAR PREMATURE COMPLEXES NONSPECIFIC ST & T-WAVE ABNORMALITY Compared to ECG 06/03/2020 11:10:15 Supraventricular tachycardia no longer present T-wave abnormality still present Electronically Signed On 06-07-2020 21:14:48 CDT by Oneyda Anders M.D. [id number]
--- NOTE | 2020-06-07 14:45 | P.PN_ITS ---
Subjective Subjective: Interval history: Afebrile, hemodynamically stable, hypokalemia potassium of 2.6 today. Transferred out of ICU yesterday Medications: Reviewed: Yes Vitals/I&O/Wt Last Vital Signs Temp 98.7 F 06/07/20 11:46 Pulse 81 06/07/20 11:46 Resp 18 06/07/20 11:46 BP 132/80 06/07/20 11:46 Pulse Ox 97 06/07/20 11:46 06/06/20 06/07/20 06/07/20 22:59 06:59 14:59 Intake Total 1447 / 2167 50 / 2217 410 / 410 Output Total 1950 / 1950 800 / 2750 Balance -503 / 217 -750 / -533 410 / 410 Weight last 48 hrs Weight 104.372 kg Physical Exam Narrative: EXAM NARRATIVE: GENERAL: Awake, oriented x2, generalized weakness CHEST: Clear to auscultation bilateral anteriorly CVS: S1, S2 normal. No murmur, rubs, gallops. Peripheral pulses palpable. [] ABDOMEN: Soft, nontender. Nondistended. Bowel sounds heard. [] NEUROVASCULAR: Bilateral lower extremity with foot drop, power 2 out of 5 unch anged over previous exam EXTREMITIES: No edema. [] Urinary Catheter Management^: Armando: Cath Placed During This Visit: yes Reason for Continuing Indwelling Catheter: Other Urinary Catheter Date of Insertion: 06/03/20 Urinary Catheter Time of Insertion: 06:11 Data : 06/07/20 05:00 06/07/20 05:00 A&P Additional A&P Information 80 year old male residing in [facility] with past medical history of moderate to severe dementia, limited mobility, bedbound probably due to severe spinal stenosis and chronic lower back pain requiring oral morphine and possibly fentanyl patch (per med rec), possible history of COPD and CHF, atrial fibrillation who was brought to emergency room from SNF with altered mental status and labored breathing. # Acute hypoxic and hypercapnic respiratory failure probably secondary to aspiration pneumonia. Associated septic shock upon admission, now resolved Continue Zosyn, antibiotic day 5 today. MRSA PCR +, vancomycin trough at 14.7, redosed 1 g IV today Negative urine Legionella and bacterial antigens History of Covid in December 2019, has completed 2 dose vaccination series, low suspicion for Covid infection Currently on mechanical soft diet with nectar thick liquids Sputum culture unable to be obtained as patient not expectorating Blood culture thus far negative to date Leukocytosis and fever now resolved, will aim to complete 5-day course for treatment of pneumonia and then discharged back to SNF Supplemental oxygen as needed to keep saturation above 92 # Acute metabolic encephalopathy on top of chronic dementia. Likely due to septic shock, this is improved, currently back at baseline mentation # NSTEMI: Troponin two hour and 6-hour delta significant. Discussed with patient and that they would not not want any invasive interventions including an angiogram. We will manage medically. Patient has a past medical history of GI bleeding for which we are holding off on anticoagulation. Hemoglobin between 9-10, occult blood testing pending, hesitant to add Plavix without knowing status of current GI bleeding Continue aspirin 81 mg p.o. daily, since otherwise chest pain-free at this present time without acute ST-T wave changes. Patient has a history of PE DVT, previously on Coumadin and then Eliquis, both of which were discontinued due to episodes of GI bleeding. Troponin leak could be type II [place] from sepsis due to demand supply mismatch. # A. fib with RVR. Currently well controlled, continue. amiodarone 400 twice daily, check QTc interval on EKG today. We will reduce dose to 200 mg daily maintenance upon discharge #Hypokalemia and hypomagnesemia, replete IV, target potassium of 4, magnesium 2 #Pain better controlled today #Multiple episodes of diarrhea, C. difficile negative, likely to be antibiotic associated diarrhea. Imodium 2 mg 1 time DVT prophylaxis. Lovenox. CODE STATUS. DNR and DNI. Discussed with his at the bedside. Attestations Medical Necessity Statement*: Septic shock from aspiration pneumonia, patient is currently improving, needs to complete course of IV antibiotics for pneumonia, replete electrolytes intravenously, plan for discharge in the upcoming 24 hours Coding Level of Care Code Acute Manager Telemarketing for g Micah
[2020-06-07] MEDS: loperamide 2 mg Capsule PO (15:33)
[2020-06-07] MEDS: enoxaparin 40 mg/0.4 mL Syringe SUBCUT (15:33)
[2020-06-07] MEDS: TRAMadol 50 mg Tablet 100 MG PO (17:34)
[2020-06-07] MEDS: metoprolol tartrate 25 mg Tablet PO (17:37)
[2020-06-07] MEDS: tamsulosin 0.4 mg Capsule PO (20:24)
[2020-06-07] MEDS: ALPRAZolam 0.5 mg Tablet PO (20:25)
[2020-06-07] MEDS: potassium chloride ER 20 mEq Tablet PO (20:25)
[2020-06-07] MEDS: BuSPIRONE 10 mg Tablet 5 MG PO (20:25)
[2020-06-08] VITALS: BP 104/68; PULSE 71; RESP 18; TEMP 36.9; O2SAT 95
[2020-06-08 03:46] VITALS: BP 108/72; PULSE 73; RESP 18; TEMP 37.1; O2SAT 96
[2020-06-08] MEDS: piperacillin-tazobactam 3.375 GM in sodium chloride 0.9% (plus) 50 ML IV (04:27)
[2020-06-08] MEDS: metoprolol tartrate 25 mg Tablet PO ×2 (05:35→17:08)
[2020-06-08] MEDS: FUROsemide 40 mg Tablet PO (05:36)
[2020-06-08 08:00] VITALS: BP 110/68; PULSE 67; RESP 18; TEMP 36.8; O2SAT 94
[2020-06-08 08:22] LABS: Basophils # 0.1 10^3/uL (0.0-0.1); Basophils % 0.8 %; Eosinophils # 0.2 10^3/uL (0.0-0.8); Eosinophils % 2.5 %; Hematocrit 33.7 % (42.0-52.0); Hemoglobin 10.7 g/dL (11.7-16.6); Lymphocytes # 0.9 10^3/uL (0.8-4.8); Lymphocytes % 14.2 %; Mean Corpuscular HGB Conc 31.8 g/dL (30.0-36.0); Mean Corpuscular Hemoglobin 29.8 pg (28.0-34.0); Mean Corpuscular Volume 93.9 fL (80-94); Mean Platelet Volume 10.8 fL (7.4-10.4); Monocytes # 0.7 10^3/uL (0.2-0.9); Monocytes % 12.4 %; Neutrophils # 3.87 10^3/uL (1.8-7.7); Neutrophils % 64.9 %; Nucleated Red Blood Cells % 0 %; Platelet Count 140 10^3/cmm (130-400); Red Blood Count 3.59 10^6/uL (4.1-5.3); Red Cell Distribution Width 15.2 % (12.1-15.1)
[2020-06-08 08:45] LABS: Alanine Aminotransferase 16 U/L (0-41); Albumin Level 2.2 g/dL (3.5-5.2); Alkaline Phosphatase 67 IU/L (40-130); Anion Gap 10.5 (5-19); Aspartate Amino Transferase 10 U/L (0-40); Blood Urea Nitrogen 6 mg/dL (8-23); Calcium 8.3 mg/dL (8.5-10.5); Carbon Dioxide 26 mmol/L (22-29); Chloride 104 mmol/L (98-107); Globulin 2.8 g/dL (1.3-4.6); Glucose 85 mg/dL (65-115); Osmolality Calculated 281 mOsm/kg (285-295); Potassium 3.5 mmol/L (3.5-5.1); Sodium 137 mmol/L (136-145); Total Bilirubin 0.3 mg/dL (0.15-1.2)
[2020-06-08 08:55] LABS: Slide Review Slide Review Perform
[2020-06-08] MEDS: aspirin 81 mg EC Tablet PO (10:04)
[2020-06-08] MEDS: amiodarone 200 mg Tablet PO (10:04)
[2020-06-08] MEDS: pantoprazole DR 40 mg Tablet PO (10:04)
[2020-06-08] MEDS: potassium chloride ER 20 mEq Tablet PO (10:04)
[2020-06-08] MEDS: tamsulosin 0.4 mg Capsule PO (10:04)
--- NOTE | 2020-06-08 10:20 | PC.SOCIAL ---
IMM Update Pg. 2 of IMM updated and reviewed with patient, who verbalized understanding.
--- NOTE | 2020-06-08 10:49 | PM.DCS ---
Discharge Providers Date of Admission: 06/03/20 13:26 Date of Discharge: June 08, 2020 Attending Provider at Admission: Fausto Sanchez Attending Provider at Discharge: Minna Nunez MD Primary Care Provider: Dania Goldberg MD Reason for Visit Reason for Visit: unresponsive Hospital Course Hospital Course 80 year old male residing in long term facility with past medical history of moderate to severe dementia, limited mobility, bedbound probably due to severe spinal stenosis and chronic lower back pain requiring oral morphine and possibly fentanyl patch (per med rec), possible history of COPD and CHF, atrial fibrillation who was brought to emergency room from SNF with altered mental status and labored breathing on 06/03/20. Hospital course as follows: # Acute hypoxic and hypercapnic respiratory failure likely secondary to aspiration pneumonia. Associated septic shock upon admission, now resolved Received treatment with iv abx including Zosyn, vancomycin (MRSA nares PCR+) and azithromycin. urine legionella and bacterial antigens negative History of Covid in December 2019, has completed 2 dose vaccination series, low suspicion for Covid infection Currently on mechanical soft diet with nectar thick liquids Sputum culture unable to be obtained as patient not expectorating Blood culturenegative to date Leukocytosis and fever now resolved, wcompleted adequate course for pneumonia Supplemental oxygen as needed to keep saturation above 92 # Acute metabolic encephalopathy on top of chronic dementia. Likely due to septic shock, this is improved, currently back at baseline mentation # NSTEMI: Troponin two hour and 6-hour delta significant. Discussed with patient and that they would not not want any invasive interventions including an angiogram. We will manage medically. Patient has a past medical history of GI bleeding for which we are holding off on anticoagulation. Hemoglobin between 9-10, occult blood testing pending, negative by bedside card test, hesitant to add Plavix given baseline anemia and high risk of bleeding. Continue aspirin 81 mg p.o. daily, since otherwise chest pain-free at this present time without acute ST-T wave changes. Patient has a history of PE DVT, previously on Coumadin and then Eliquis, both of which were discontinued due to episodes of GI bleeding. Troponin leak could be type II IA from sepsis due to demand supply mismatch. # A. fib with RVR. Likely triggered by sepsis. Currently well controlled, reuqired amiodarone during hospital course as he was hypotensive and on pressors, therefore b blockers were contraindicated. Amiodarone discontinued at discharge, B blockers resumed. #Hypokalemia and hypomagnesemia, repleted IV, within range at discharge. #Pain better controlled today #Multiple episodes of diarrhea, C. difficile negative, likely to be antibiotic associated diarrhea. Likely to resolve with discontinuing abx. DVT prophylaxis. Lovenox. CODE STATUS. DNR and DNI. All updates discussed with his Physical Exam Narrative: EXAM NARRATIVE: GEN: Awake, alert , oriented x 2 CVS: S1S2 N RS: reduced air entry RLL Abd: Soft, nt/nd , bs+ Urinary Catheter Management^: Armando: Cath Placed During This Visit: yes Reason for Continuing Indwelling Catheter: Other Urinary Catheter Date of Insertion: 06/03/20 Urinary Catheter Time of Insertion: 06:11 Discharge Data Data Completed and Pending: Completed Studies During Hospitalization Category Date Time Status CT angio chest PE protcl [id number] Urge nt Cat Scan 06/03/20 08:[address] head wo con* 7 [id number] Urgent Cat Scan 06/03/20 13:06 Completed XR chest 1V jv ble [id number] Stat Exams 06/03/20 05:48 Completed XR chest 1V jv ble [id number] Stat Exams 06/03/20 11:42 Completed CV echo complete* [id number] Routine Ultrasound 06/04/20 11:59 Completed Pending at discharge Category Date Time Status Miscellaneous Leela t Routine Lab 06/05/20 15:27 Received Miscellaneous Leela t Routine Lab 06/06/20 07:30 Received Sputum Culture Ro utine Lab 06/03/20 13:06 Uncollected Labs from last 24 hours 06/08/20 06/08/20 08:07 08:07 WBC 6.0 RBC 3.59 L Hgb 10.7 L Hct 33.7 L MCV 93.9 MCH 29.8 MCHC 31.8 RDW 15.2 H Plt Count 140 MPV 10.8 H Neut % (Auto) 64.9 Lymph % (Auto) 14.2 Jewell % (Auto) 12.4 Eos % (Auto) 2.5 Baso % (Auto) 0.8 Neut # (Auto) 3.87 Lymph # (Auto) 0.9 Jewell # (Auto) 0.7 Eos # (Auto) 0.2 Baso # (Auto) 0.1 Nucleated RBC % (a uto) 0 Nucleated RBCs # 0.0 Sodium 137 Potassium 3.5 Chloride 104 Carbon Dioxide 26 Anion Gap 10.5 BUN 6 L Creatinine 0.5 L GFR Calculation Not Reportable Glucose 85 Calculated Osmolal ity 281 L Calcium 8.3 L Total Bilirubin 0.3 AST 10 ALT 16 Alkaline Phosphata se 67 Total Protein 5.0 L Albumin 2.2 L Globulin 2.8 Addt'l Data from Hospital Stay: Laboratory Results WBC 6.0 10^3/uL (4.0- 10.0) 06/08/20 08:07 RBC 3.59 10^6/uL (4.1 -5.3) L 06/08/20 08:07 Hgb 10.7 g/dL (11.7-1 6.6) L 06/08/20 08:07 Hct 33.7 % (42.0-52.0 ) L 06/08/20 08:07 MCV 93.9 fL (80-94) 06/08/20 08:07 MCH 29.8 pg (28.0-34. 0) 06/08/20 08:07 MCHC 31.8 g/dL (30.0-3 6.0) 06/08/20 08:07 RDW 15.2 % (12.1-15.1 ) H 06/08/20 08:07 Plt Count 140 10^3/cmm (130 -400) 06/08/20 08:07 MPV 10.8 fL (7.4-10.4 ) H 06/08/20 08:07 Neut % (Auto) 64.9 % 06/08/20 08:07 Lymph % (Auto) 14.2 % 06/08/20 08:07 Jewell % (Auto) 12.4 % 06/08/20 08:07 Eos % (Auto) 2.5 % 06/08/20 08:07 Baso % (Auto) 0.8 % 06/08/20 08:07 Neut # (Auto) 3.87 10^3/uL (1.8 -7.7) 06/08/20 08:07 Lymph # (Auto) 0.9 10^3/uL (0.8- 4.8) 06/08/20 08:07 Jewell # (Auto) 0.7 10^3/uL (0.2- 0.9) 06/08/20 08:07 Eos # (Auto) 0.2 10^3/uL (0.0- 0.8) 06/08/20 08:07 Baso # (Auto) 0.1 10^3/uL (0.0- 0.1) 06/08/20 08:07 Nucleated RBC % (a uto) 0 % 06/08/20 08:07 Total Counted 100 (0-100) 06/04/20 04:02 Atypical Lymphs % 0.0 % (0-5) 06/04/20 04:02 Absolute Neutrophi ls 8.4 10^3/cmm (1.4 -6.5) H 06/04/20 04:02 Segmented Neutroph ils 33 % 06/04/20 04:02 Abs Segm Neuts (Ma n) 3.7 10/cmm (1.6-7 .1) 06/04/20 04:02 Band Neutrophils 41.0 % 06/04/20 04:02 Abs Band Neuts (Ma n) 4.6 10^3/cmm (0.0 -1.2) H 06/04/20 04:02 Absolute Lymphocyt es 1.0 10^3/cmm (1.2 -3.4) L 06/04/20 04:02 Lymphocytes (Manua l) 9 % 06/04/20 04:02 Monocytes (Manual) 12.0 % 06/04/20 04:02 Absolute Monocytes 1.4 10^3/cmm (0.1 -0.6) H 06/04/20 04:02 Eosinophils (Manua l) 0 % 06/04/20 04:02 Absolute Eosinophi ls 0.0 10^3/cmm (0.0 -0.7) 06/04/20 04:02 Basophils (Manual) 0.0 % 06/04/20 04:02 Absolute Basophils 0.0 10^3/cmm (0.0 -0.2) 06/04/20 04:02 Metamyelocytes 5.0 % 06/04/20 04:02 Nucleated RBCs # 0.0 /100WBC 06/08/20 08:07 Platelet Estimate Normal (Normal) 06/04/20 04:02 PT 15.10 SECONDS (12 .1-14.9) H 06/03/20 05:44 INR 1.15 (0.8-1.2) 06/03/20 05:44 APTT 29.0 SECONDS (23. 9-36.7) 06/03/20 05:44 Specimen Type Arterial 06/05/20 06:00 Sample Site Radial, left 06/05/20 06:00 ABG pH 7.35 (7.35-7.45) 06/05/20 06:00 ABG pCO2 44.0 mmHg (35-45) 06/05/20 06:00 ABG pO2 99.2 mmHg (80.0-1 00.0) 06/05/20 06:00 ABG HCO3 24.4 mmol/L (22-2 6) 06/05/20 06:00 ABG O2 Saturation 90.0 06/03/20 08:20 ABG Base Excess -1.3 mmol/L (-2.0 -2.0) 06/05/20 06:00 Russ Test Pos 06/05/20 06:00 A-a O2 Gradient 58.2 mmHg (5-10) H 06/03/20 08:20 Hematocrit 33.9 % (42-52) L 06/05/20 06:00 Hgb O2 Saturation 88.2 % (95-100) L 06/03/20 08:20 Carboxyhemoglobin 1.2 %THgb (0.4-20 .1) 06/03/20 08:20 Methemoglobin 0.8 % (0.4-1.5) 06/03/20 08:20 Total Hemoglobin 14.9 g/dL (14-18) 06/03/20 08:20 Sodium 138.0 mmol/L (131 -143) 06/03/20 08:20 Potassium 4.0 mmol/L (3.5-5 .0) 06/03/20 08:20 Glucose 131.0 mg/dL (70-1 15) H 06/03/20 08:20 Ionized Calcium 1.2 mmol/L (1.1-1 .4) 06/03/20 08:20 O2 Delivery Device Nc 06/05/20 06:00 O2 Liters/Min 2.0 % 06/05/20 06:00 FiO2 28.0 % 06/05/20 06:00 Automatic Vulcanizing Lead Operator ID [email or web address] 06/05/20 06:00 Sodium 137 mmol/L (136-1 45) 06/08/20 08:07 Potassium 3.5 mmol/L (3.5-5 .1) 06/08/20 08:07 Chloride 104 mmol/L (98-10 7) 06/08/20 08:07 Carbon Dioxide 26 mmol/L (22-29) 06/08/20 08:07 Anion Gap 10.5 (5-19) 06/08/20 08:07 BUN 6 mg/dL (8-23) L 06/08/20 08:07 Creatinine 0.5 mg/dL (0.7-1. 2) L 06/08/20 08:07 GFR Calculation Not Reportable 06/08/20 08:07 Glucose 85 mg/dL (65-115) 06/08/20 08:07 POC Glucose 149 mg/dL (70-110 ) H 06/03/20 05:46 Calculated Osmolal ity 281 mOsm/kg (285- 295) L 06/08/20 08:07 Lactic Acid 3.1 mmol/L (0.5-2 .2) H 06/03/20 13:37 Lactic Acid (Sepsi s) 2.7 mmol/L (0.5-2 .2) H 06/03/20 16:58 Lactate 1.3 mmol/L (0.5-2 .2) 06/05/20 05:46 Calcium 8.3 mg/dL (8.5-10 .5) L 06/08/20 08:07 Magnesium 1.6 mg/dL (1.7-2. 3) L 06/07/20 05:00 Total Bilirubin 0.3 mg/dL (0.15-1 .2) 06/08/20 08:07 AST 10 U/L (0-40) 06/08/20 08:07 ALT 16 U/L (0-41) 06/08/20 08:07 Alkaline Phosphata se 67 IU/L (40-130) 06/08/20 08:07 Creatine Kinase 23 U/L (39-308) L 06/03/20 05:44 Troponin T Baselin e 128 ng/L (0-15) H* 06/03/20 05:44 Troponin T 120 Min harriet 166.0 ng/L (0-15) H 06/03/20 08:19 Delta Troponin T 38.0 ABS# (0-10) H* 06/03/20 08:19 Troponin T Hi Sens 6Hr 210.9 ng/L (0-15) H 06/03/20 12:00 Troponin T Hi Sens 6Hr Delta 82.9 ng/L (0-12) H* 06/03/20 12:00 C-Reactive Protein 334.2 mg/L (0.0-4 .9) H 06/04/20 04:02 NT-Pro-B Natriuret Pep 5669 pg/mL (0-450 ) H 06/04/20 04:02 Total Protein 5.0 g/dL (6.6-8.7 ) L 06/08/20 08:07 Albumin 2.2 g/dL (3.5-5.2 ) L 06/08/20 08:07 Globulin 2.8 g/dL (1.3-4.6 ) 06/08/20 08:07 Procalcitonin 8.93 ng/mL (0-0.5 ) H 06/04/20 04:02 TSH 1.24 uIU/mL (0.27 -4.20) 06/04/20 04:02 Urine Color Yellow (Yellow) 06/03/20 06:12 Urine Appearance Sl cloudy (CLEAR ) A 06/03/20 06:12 Urine pH 5 (5-7) 06/03/20 06:12 Ur Specific Gravit y 1.020 (1.005-1.0 30) 06/03/20 06:12 Urine Protein 1+ (Negative) H 06/03/20 06:12 Urine Glucose (UA) Norm (Normal) 06/03/20 06:12 Urine Ketones Negative (Negati ve) 06/03/20 06:12 Urine Blood 3+ (Negative) H 06/03/20 06:12 Urine Nitrate Negative (Negati ve) 06/03/20 06:12 Urine Bilirubin 1+ (Negative) H 06/03/20 06:12 Urine Urobilinogen 8 mg/dL (Negative ) H 06/03/20 06:12 Ur Leukocyte Grace ase Negative (Negati ve) 06/03/20 06:12 Urine RBC 25-40 /hpf (0-2) H 06/03/20 06:12 Urine WBC 5-10 /hpf (0-5) H 06/03/20 06:12 Ur Squamous Epith Cells 0-4 /hpf (0-5) H 06/03/20 06:12 Amorphous Sediment 2+ /hpf 06/03/20 06:12 Urine Bacteria 1+ /hpf (NONE) H 06/03/20 06:12 Hyaline Casts 15-25 /lpf H 06/03/20 06:12 Urine Mucus 2+ /hpf 06/03/20 06:12 Vancomycin Trough 27.7 ug/mL (10-15 ) H* 06/04/20 20:20 Random Vancomycin 14.5 ug/mL (20.0- 40.0) L 06/06/20 15:15 Impressions Chest CTA 06/03/20 08:07 IMPRESSION: 1. No pulmonary artery embolism identified. 2. Right lower lobe consolidative densities, bilateral pulmonary infiltrates. Pneumonitis is likely. Clinical correlation is recommended. 3. Right middle lobe collapse. 4. Prior cholecystectomy. Radiation Dose CTDIVOL = (mGy): DLP = 560.99 (mGy-cm) Chest X-Ray 06/03/20 11:42 IMPRESSION: 1. Interval consolidative density right apex, increased right parahilar airspace opacity. Pneumonitis is difficult to exclude. Clinical correlation is recommended. 2. Increased medial consolidation/partial atelectasis right lower lobe. Head CT 06/03/20 13:06 IMPRESSION: 1. Disproportionate prominence of the lateral and third ventricles, stable. Recommend clinical exclusion of symptoms of normal pressure hydrocephalus. Otherwise, age appropriate supratentorial and infratentorial atrophy. 2. 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 3. No acute intracranial abnormality identified. 4. Incidental paranasal sinus mucosal disease as above. Radiation Dose CTDIVOL = (mGy): DLP = 951.36 (mGy-cm) Microbiology 06/03/20 07:19 Blood Blood Culture - Final NO GROWTH AFTER 5 DAYS 06/03/20 07:10 Blood Blood Culture - Final NO GROWTH AFTER 5 DAYS 06/05/20 15:27 Stool Routine Collection C.difficile Toxin B Gene (PCR) - Final- negative 06/04/20 14:09 Nose MRSA Culture - Final- Positive 06/03/20 06:12 Urine Catheterized Urine Culture - Final 06/04/20 06:12 Urine,Voided Legionella Urinary Antigen - Final 06/04/20 06:12 Urine,Voided Bacterial Antigens - Final Vitals: Last Vital Signs Temp 98.2 F 06/08/20 08:00 Pulse 67 06/08/20 08:00 Resp 18 06/08/20 08:00 BP 110/68 06/08/20 08:00 Pulse Ox 94 06/08/20 08:00 Discharge Plan Discharge Patient Disposition: Xfer SNF Condition: Stable Prescriptions: New aspirin 81 mg Tablet,Delayed Release (Dr/Ec) 81 mg PO DAILY 30 Days Qty: 30 RF: 0 albuterol sulfate 2.5 mg/0.5 mL Solution For Nebulization 2.5 mg inhalation Q6H.RESPIRATORY PRN (Reason: Wheezing) Qty: 0 RF: 0 calamine-zinc oxide 8-8 % Lotion 1 applic topical Q4H PRN (Reason: Itching) 30 Days Qty: 100 RF: 0 Continued furosemide [Lasix] 40 mg tablet 40 mg PO DAILY@ RF: 0 ferrous sulfate 325 mg (65 mg iron) tablet 325 mg PO BID@ RF: 0 pantoprazole 40 mg tablet,delayed release (DR/EC) 40 mg PO DAILY@ RF: 0 sucralfate 1 gram tablet 1 gm PO Q6H RF: 0 polyethylene glycol 3350 17 gram/dose powder 17 gm PO DAILY@ RF: 0 acetaminophen [Tylenol] 325 mg tablet 650 mg PO Q6H PRN (Reason: Pain) RF: 0 alprazolam 0.5 mg tablet 0.5 mg PO BEDTIME@1999 RF: 0 tamsulosin [Flomax] 0.4 mg capsule 0.4 mg PO BID@ RF: 0 buspirone 5 mg Tablet 5 mg PO BEDTIME@1999 RF: 0 Advair Diskus 250-50 mcg/dose Blister With Device 1 inh INHALATION Q12H RF: 0 Zofran 4 mg Tablet 4 mg PO Q6H PRN (Reason: Nausea) RF: 0 Micro-Guard 2 % Powder 1 applic TOPICAL BID@ RF: 0 melatonin 3 mg Tablet 3 mg PO BEDTIME@1999 RF: 0 tramadol 50 mg Tablet 50 mg PO BID PRN (Reason: Pain) RF: 0 alprazolam 0.5 mg Tablet 0.5 mg PO DAILY PRN (Reason: Anxiety) RF: 0 primidone 250 mg Tablet 250 mg PO TID@,,20 RF: 0 morphine 100 mg/5 mL Concentrate 5 mg PO Q2H PRN (Reason: Pain) RF: 0 Dulcolax (bisacodyl) 10 mg Suppository 10 mg IN DAILY PRN (Reason: Constipation) RF: 0 olopatadine 0.1 % Drops 1 drp OPHTHALMIC (EYE) BID@, RF: 0 Fleet Enema 19-7 gram/118 mL Enema 118 ml IN DAILY PRN (Reason: Constipation) RF: 0 Dulcolax (bisacodyl) 5 mg Tablet,Delayed Release (Dr/Ec) 5 mg PO DAILY PRN (Reason: Constipation) RF: 0 metoprolol tartrate 25 mg Tablet 25 mg PO Q12H RF: 0 phenyleph-min oil-petrolatum 0.25-14-74.9 % Ointment 1 applic IN DAILY PRN (Reason: Hemorrhoids) RF: 0 potassium chloride 20 mEq Tablet Extended Release 20 meq PO BID@ RF: 0 Changed docusate sodium 100 mg Capsule 200 mg PO DAILY@1999 PRN (Reason: prn) Qty: 0 RF: 0 Discharge Orders: Discharge Order (Routine); Ordered 06/08/20 Ordered By: Minna Nunez Referrals: Dania Goldberg MD [Primary Care Provider] - 7-10 days Discharge Diet: Soft Mechanical Discharge Activity: As per PT/OT instructions Discharge Attestations Time Spent in Discharge Care*: greater than 30 min Specific Discharge Activities: educating and/or supporting family/caregiver, discussing with disability case manager/social workers/dc planners and documenting/other paperwork Quality Metrics Clinical Quality Measures During this hospital stay, did patient experience: None Coding Level of Care Code Acute Chg FW DC note
--- NOTE | 2020-06-08 10:55 | XRR_ITS ---
PROCEDURE INFORMATION: Exam: XR Chest Exam date and time: 06/08/2020 10:57 AM Age: 80 years old Clinical indication: Other: Unresponsive; Additional info: F/up infiltrates TECHNIQUE: Imaging protocol: XR of the chest. Views: 1 view. COMPARISON: CR (CHEST, ) 06/03/2020 11:44 AM FINDINGS: Lungs: Bilateral pneumonia right more than left, minimally decreased in the right lung base since 06/03/2020. Pleural spaces: No definite pleural effusion. No pneumothorax. Heart/Mediastinum: Unremarkable. No cardiomegaly. Bones/joints: No acute findings. XR/XR chest 1V portable [id number] IMPRESSION: Bilateral pneumonia, minimally decreased from 06/03/2020.
[2020-06-08 12:00] VITALS: BP 116/65; PULSE 77; RESP 18; TEMP 37.1; O2SAT 91
[2020-06-08 16:00] VITALS: BP 117/87; PULSE 81; RESP 18; TEMP 36.8; O2SAT 94
[2020-06-08] MEDS: enoxaparin 40 mg/0.4 mL Syringe SUBCUT (17:07)
[2020-06-08 17:59] VITALS: BP 117/87; PULSE 81; RESP 18; TEMP 36.8; O2SAT 94
== END 2020-06-08 17:20 | disposition skilled nursing facility (03) | DRG 871 ==
LOC: ER 05:51 → ICU 13:33 → MEDSURG 06-06 17:58
PROVIDERS: Family Medicine; Admitting Provider Internal Medicine; Emergency Provider Emergency Medicine; PCP Family Medicine; Visit Provider Student in an Organized Health Care Education/Training Program
DX: A41.9 Sepsis, unspecified organism (principal); R65.21 Severe sepsis with septic shock; J69.0 Pneumonitis due to inhalation of food and vomit; J96.02 Acute respiratory failure with hypercapnia; J96.01 Acute respiratory failure with hypoxia; G93.41 Metabolic encephalopathy; I21.A1 Myocardial infarction type 2; K52.1 Toxic gastroenteritis and colitis; F03.90 Unspecified dementia, unspecified severity, without behavioral disturbance, psychotic disturbance, mood disturbance, and anxiety; Z74.01 Bed confinement status; M48.00 Spinal stenosis, site unspecified; J44.9 Chronic obstructive pulmonary disease, unspecified; I11.0 Hypertensive heart disease with heart failure; I50.9 Heart failure, unspecified; I48.91 Unspecified atrial fibrillation; Z66 Do not resuscitate; F32.9 Major depressive disorder, single episode, unspecified; G25.0 Essential tremor; E66.01 Morbid (severe) obesity due to excess calories; Z68.32 Body mass index [BMI] 32.0-32.9, adult; Z87.891 Personal history of nicotine dependence; E87.6 Hypokalemia; Z86.16 Personal history of COVID-19; Z79.891 Long term (current) use of opiate analgesic; Z79.51 Long term (current) use of inhaled steroids; Z86.718 Personal history of other venous thrombosis and embolism; Z86.711 Personal history of pulmonary embolism; E83.42 Hypomagnesemia; T36.95XA Adverse effect of unspecified systemic antibiotic, initial encounter
CPT/HCPCS: 36415; 36416; 36600; 51702; 70450; 71045; 71275; 80051; 80053; 80202; 81001; 82330; 82550; 82803; 82805; 82962; 83605; 83735; 83880; 84145; 84311; 84443; 84484; 85007; 85025; 85610; 85730; 86140; 86403; 87040; 87086; 87449; 87493; 87641; 92526; 92610; 93005; 93306; 94640; 94660; 94664; 96365; 96366; 96367; 96372; 96375; 96376; 99291; C9113; J0282; J0456; J0743; J1170; J1200; J1650; J2270; J2310; J2405; J2543; J3370; J3475; J3480; J3490; J7030; J7040; J7050; J7060; J7611; Q9967

== ENCOUNTER 2020-09-18 13:14 | Outpatient (CLI) | payer OTHER, MEDICARE, SELFPAY ==
[2020-09-18 13:32] LABS: Basophils # 0.1 10^3/uL (0.0-0.1); Basophils % 0.7 %; Eosinophils # 0.4 10^3/uL (0.0-0.8); Hematocrit 37.3 % (42.0-52.0); Hemoglobin 11.8 g/dL (11.7-16.6); Lymphocytes # 1.2 10^3/uL (0.8-4.8); Lymphocytes % 17.9 %; Mean Corpuscular HGB Conc 31.6 g/dL (30.0-36.0); Mean Corpuscular Hemoglobin 29.9 pg (28.0-34.0); Mean Corpuscular Volume 94.7 fL (80-94); Mean Platelet Volume 10.6 fL (7.4-10.4); Monocytes # 0.8 10^3/uL (0.2-0.9); Monocytes % 11.1 %; Neutrophils # 4.35 10^3/uL (1.8-7.7); Neutrophils % 63.7 %; Nucleated Red Blood Cells % 0 %; Platelet Count 267 10^3/cmm (130-400); Red Blood Count 3.94 10^6/uL (4.1-5.3); Red Cell Distribution Width 15.1 % (12.1-15.1); White Blood Count 6.8 10^3/uL (4.0-10.0)
== END 2020-09-18 13:15 | disposition home or self-care (01) ==
PROVIDERS: PCP Family Medicine; Visit Provider Nurse Practitioner Family
DX: I10 Essential (primary) hypertension (principal)
CPT/HCPCS: 85025

== ENCOUNTER 2020-09-18 16:48 | Inpatient (IN) | payer MEDICARE, OTHER, SELFPAY ==
[2020-09-18 17:04] VITALS: BP 111/61; PULSE 79; RESP 16; TEMP 36.7; O2SAT 96; BMI 28.8
[2020-09-18 17:07] VITALS: BP 111/61; PULSE 74; RESP 15; O2SAT 95
--- NOTE | 2020-09-18 17:25 | XRR_ITS ---
PROCEDURE INFORMATION: Exam: XR Chest Exam date and time: 09/18/2020 5:25 PM Age: 80 years old Clinical indication: Shortness of breath; Additional info: Reduced breath sounds TECHNIQUE: Imaging protocol: XR of the chest. Views: 1 view. COMPARISON: CR XR chest 1V portable [id number] 06/08/2020 11:05 AM FINDINGS: Lungs: Hypoinflated lungs. No discrete consolidation, previously seen consolidations predominantly in the right lung appear to have intervally resolved or are much less conspicuous. Pleural spaces: Unremarkable. No pleural effusion. No pneumothorax. Heart/Mediastinum: Unremarkable. No cardiomegaly. Bones/joints: Moderate DJD of the right glenohumeral joint. XR/XR chest 1V portable [id number] IMPRESSION: Hypoinflated lungs. No discrete consolidation.
--- NOTE | 2020-09-18 17:29 | ECG_ITS ---
[facility] Test Date: 2020-09-18 Pat Name: Sid Salas Department: Room: Gender: Male Grapple Operator: : 1940 Requested By: Bjorn Arreola Order Number: [id number] Jose MD: Oneyda Anders M.D. Measurements Intervals [place] Rate: 87 P: 71 [place]: 167 QRS: 52 QRSD: 70 T: 66 QT: 352 QTc: 424 Interpretive Statements SINUS RHYTHM NONSPECIFIC T-WAVE ABNORMALITY WARNING: DATA QUALITY MAY AFFECT INTERPRETATION Compared to ECG 06/07/2020 15:03:48 No significant changes Electronically Signed On 09-19-2020 9:26:13 CDT by Oneyda Anders M.D. [id number]
--- NOTE | 2020-09-18 17:31 | CTR_ITS ---
PROCEDURE INFORMATION: Exam: CT Chest Without Contrast; Diagnostic Exam date and time: 09/18/2020 5:31 PM Age: 80 years old Clinical indication: Other: Blood in stool; Other: Melena TECHNIQUE: Imaging protocol: Diagnostic computed tomography of the chest without contrast. Radiation optimization: All CT scans at this facility use at least one of these dose optimization techniques: automated exposure control; mA and/or kV adjustment per patient size (includes targeted exams where dose is matched to clinical indication); or iterative reconstruction. COMPARISON: CT angio chest PE [facility] [id number] 06/03/2020 9:10 AM RADIATION DOSE METRICS: Total DLP (mGy-cm): 2871.83 FINDINGS: Lungs: Bibasilar atelectasis versus minimal infiltrate. Pleural spaces: Unremarkable. No pneumothorax. No pleural effusion. Heart: Coronary artery atherosclerotic calcifications. Aorta: Unremarkable. No aortic aneurysm. Lymph nodes: Unremarkable. No enlarged lymph nodes. Bones/joints: Unremarkable. No acute fracture. Soft tissues: Unremarkable. IMPRESSION: 1. Bibasilar atelectasis versus minimal infiltrate. 2. Coronary artery atherosclerotic calcifications. PROCEDURE INFORMATION: Exam: CT Abdomen And Pelvis Without Contrast Exam date and time: 09/18/2020 5:31 PM Age: 80 years old Clinical indication: Other: Blood in stool; Other: Melena TECHNIQUE: Imaging protocol: Computed tomography of the abdomen and pelvis without contrast. Radiation optimization: All CT scans at this facility use at least one of these dose optimization techniques: automated exposure control; mA and/or kV adjustment per patient size (includes targeted exams where dose is matched to clinical indication); or iterative reconstruction. COMPARISON: CT angio chest PE [facility] [id number] 06/03/2020 9:10 AM RADIATION DOSE METRICS: Total DLP (mGy-cm): 2871.83 FINDINGS: Liver: Normal. No mass. Gallbladder and bile ducts: Normal. No calcified stones. No ductal dilation. Pancreas: Normal. No ductal dilation. Spleen: Calcified splenic granulomas. Adrenal glands: Normal. No mass. Kidneys and ureters: Left kidney cyst, negative for follow-up advised. Stomach and bowel: Distal sigmoid colon/rectal wall thickening may reflect a mild colitis, please correlate clinically. Appendix: No evidence of appendicitis. Intraperitoneal space: Unremarkable. No free air. No significant fluid collection. Vasculature: Unremarkable. No abdominal aortic aneurysm. Lymph nodes: Unremarkable. No enlarged lymph nodes. Urinary bladder: Unremarkable as visualized. Reproductive: Unremarkable as visualized. Bones/joints: Unremarkable. No acute fracture. Soft tissues: Unremarkable. CT/CT chest abd pel wo con IMPRESSION: 1. Distal sigmoid colon/rectal wall thickening may reflect a mild colitis, please correlate clinically. 2. Calcified splenic granulomas. 3. Left kidney cyst, negative for follow-up advised. COMMENTS: Consistent with the [employer]'s Incidental Findings Committee white paper (J Am Carissa Radiol 2018): Any incidental renal lesion less than 1 cm or classified as too small to characterize, or any incidental cystic renal lesion characterized as simple-appearing, is likely benign. No follow-up imaging is recommended for these lesions per consensus recommendations based on imaging criteria. Radiation Dose CTDIVOL = (mGy): DLP = 2871.83~2871.83 (mGy-cm)
[2020-09-18 17:45] LABS: Basophils # 0.1 10^3/uL (0.0-0.1); Basophils % 0.7 %; Eosinophils # 0.5 10^3/uL (0.0-0.8); Eosinophils % 6.6 %; Hemoglobin 11.6 g/dL (11.7-16.6); Lymphocytes # 1.5 10^3/uL (0.8-4.8); Lymphocytes % 20.5 %; Mean Corpuscular HGB Conc 31.4 g/dL (30.0-36.0); Mean Corpuscular Hemoglobin 29.4 pg (28.0-34.0); Mean Corpuscular Volume 93.7 fL (80-94); Mean Platelet Volume 10.4 fL (7.4-10.4); Monocytes # 0.7 10^3/uL (0.2-0.9); Monocytes % 9.7 %; Neutrophils % 62.1 %; Nucleated Red Blood Cells % 0 %; Platelet Count 298 10^3/cmm (130-400); Red Blood Count 3.95 10^6/uL (4.1-5.3); Red Cell Distribution Width 14.9 % (12.1-15.1); White Blood Count 7.1 10^3/uL (4.0-10.0)
[2020-09-18] MEDS: sodium chloride 0.9% 1,000 ML 999 ML IV (17:57)
[2020-09-18] MEDS: pantoprazole 40 mg SDV IVP (17:58)
[2020-09-18 18:04] LABS: Troponin(5th) Baseline 63 ng/L (0-15)
[2020-09-18 18:14] LABS: Alanine Aminotransferase 17 U/L (0-41); Alkaline Phosphatase 84 IU/L (40-130); Aspartate Amino Transferase 13 U/L (0-40); Blood Urea Nitrogen 31 mg/dL (8-23); Calcium 8.3 mg/dL (8.5-10.5); Carbon Dioxide 28 mmol/L (22-29); Chloride 98 mmol/L (98-107); Glucose 117 mg/dL (65-115); Lipase 17 U/L (13-60); NT Pro B Type Natriuretic Pept 75 pg/mL (0-450); Osmolality Calculated 290 mOsm/kg (285-295); Sodium 136 mmol/L (136-145); Total Bilirubin 0.2 mg/dL (0.15-1.2)
[2020-09-18 18:18] LABS: Anion Gap 14.4 (5-19); Potassium 4.4 mmol/L (3.5-5.1)
--- NOTE | 2020-09-18 19:29 | ECG_ITS ---
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 Measurements Intervals [place] Rate: 80 P: 61 [place]: 185 QRS: 32 QRSD: 80 T: 70 QT: 387 QTc: 449 Interpretive Statements SINUS RHYTHM WITH OCCASIONAL SUPRAVENTRICULAR PREMATURE COMPLEXES Compared to ECG 09/18/2020 17:41:59 T-wave abnormality no longer present Electronically Signed On 09-19-2020 9:27:04 CDT by Oneyda Anders M.D. [id number]
[2020-09-18 19:56] LABS: Troponin 5 2HR 54.52 ng/L (0-15)
[2020-09-18 19:58] LABS: Troponin 5 2HR Delta -8.48 ABS# (0-10)
[2020-09-18 20:00] VITALS: BP 100/75; RESP 22; O2SAT 97
[2020-09-18 21:00] VITALS: BP 111/54; RESP 20; O2SAT 97
--- NOTE | 2020-09-18 21:55 | ED_ITS ---
HPI - GI Bleed General: Chief complaint: GI Bleed Stated complaint: ABDOMINAL PAIN/ BLOOD IN STOOL Time Seen by Provider: 09/18/20 17:18 History of Present Illness: HPI Narrative: The patient is an 80-year-old male with past medical history COPD, CHF and atrial fibrillation. He is on baby aspirin only. It seems he has been on blood thinners in the past for his atrial fibrillation with GI bleeds. Today he comes to the ER from the long-term complaining of black stools. The patient had a black tarry stool on arrival which was positive Hemoccult and visually grossly positive. He denies abdominal pain and history of GI problems in the past but is likely a poor historian. Chart review from recent admission does reveal some black tarry stools. No endoscopy seen in the chart. He takes Protonix twice a day in his chart. complaint: melena Severity: moderate Context: history of GI bleed Associated symptoms: Reports no associated symptoms; Denies abdominal pain, headache(s) or rash Review of Systems General: Reports: 10 or more systems reviewed and unremarkable except in HPI and below Const: Denies: fatigue Eyes: Denies: change in vision, blurry vision or eye redness ENMT: Denies: throat pain, swelling of lips/tongue, ear or mastoid pain or nasal congestion Card: Denies: chest pain, palpitations, irregular heart rhythm, edema, dyspnea on exertion or orthopnea Resp: Denies: dyspnea, productive cough or non-productive cough GI: Reports: melena; Denies: abdominal pain, diarrhea or GI cramping : Denies: flank pain, urinary frequency or urinary urgency Musc: Denies: neck pain, back pain, extremity pain, joint pain, joint redness, limited range of motion or muscle weakness Skin/Breast: Denies: rash, pruritus, erythema, skin pain or skin tenderness Neuro: Denies: headache(s), numbness in extremities, weakness in extremities, sensory changes, difficulty walking, dizziness, confusion or Slurred speech present Psych: Denies: anxiety or depression Endo: Denies: polyuria All/Imm: Denies: urticaria, throat swelling or tongue swelling PFSH ED PFSH: Medical History (Updated 09/18/20 @ 23:00 by Bjorn Arreola MD) Asthma CHF (congestive heart failure) COPD (chronic obstructive pulmonary disease) COVID-19 December 2019, mild Depression Essential tremor History of anal fissures Hypertension Morbid obesity Surgical History History of colonoscopy (~2009) History of esophagogastroduodenoscopy (EGD) (~12/2018) History of hemorrhoidectomy History of knee surgery (~2010) Family History Mother Diabetes Sister Diabetes Daughter Hypertension Father Heart disease Denies family history of Anesthesia complication Bleeding disorder Social History Smoking and tobacco status: former smoker Quit status (tobacco): has quit using tobacco Second hand smoke exposure: No Alcohol intake: never Adopted: No Caregiver/support person: Yes Lives independently: No (long-term ) Housing: Long-Term Marital status: Highest education level completed: High School Graduate service: No Current occupational status: disabled Current occupational exposures/hazards: No Pets and animals: No History of recent travel: No Sexually active: No Current gender identity: Male Jillian/Roman Catholic: Catholic Special jillian needs: No Agree to transfusion: No Financial difficulty paying for basics: Decline to Answer Physical Exam Const: COMMON NORMALS: no acute distress, average body habitus, patient oriented x3, no limitations, healthy appearing, alert and well nourished GENERAL APPEARANCE: cooperative, comfortable, well kempt and well developed ORIENTATION/CONSCIOUSNESS: Yes awake, Yes oriented to person, Yes oriented to place and Yes oriented to time HENMT: COMMON NORMALS: normocephalic, external ears normal and Normal external nose present HEAD & SCALP: normal to inspection and normocephalic NOSE: Normal external nose present EXTERNAL EAR: Yes external ears normal MOUTH: Normal oral and palatal mucosa present THROAT: posterior oropharynx normal Eye: COMMON NORMALS: Equal, round and reactive pupils present and EOMs intact bilaterally GENERAL EYE: appearance normal, both eyes and all related structures PUPIL: Yes Equal, round and reactive pupils present Neck/C-Spine: COMMON NORMALS: full ROM, no lymphadenopathy, no meningeal signs and no JVD GENERAL: Yes normal visual inspection Lymph: LYMPHATIC: no lymphadenopathy noted Chest: COMMONS NORMALS: normal inspection of the chest and normal palpation of entire chest wall Resp: COMMON NORMALS: normal respiratory effort, No retractions, No use of accessory muscles, clear to auscultation bilaterally and percussion normal EFFORT & INSPECTION: Yes able to speak in complete sentences AUSCULTATION: clear to auscultation bilaterally PERCUSSION: percussion normal Cardio: COMMON NORMALS: no JVD, regular rate, regular rhythm, S1 normal heart sound present, S2 normal heart sound present and Peripheral pulses 2+ throughout RATE: regular rate RHYTHM: regular rhythm HEART SOUNDS: S1 normal heart sound present and S2 normal heart sound present PERIPHERAL PULSES: Peripheral pulses 2+ throughout GI: COMMON NORMALS: Normal to inspection, nondistended, normoactive bowel sounds present, Soft to palpation, non-tender and no masses INSPECTION: Yes normal to inspection PALPATION: Yes Soft to palpation OTHER: Black tarry stool on exam. : COMMON NORMALS: Yes no CVA tenderness BLADDER/KIDNEY EXAM: Yes no CVA tenderness Back/Pelvis: COMMON NORMALS: no CVA tenderness, thoracic and lumbar spine normal to inspection, no thoracic nor lumbar tenderness and thoraco-lumbar ROM normal Extremity: COMMON NORMALS: normal to inspection, full ROM, capillary refill normal, no joint enlargement and no pedal edema GENERAL: Yes normal exam except as noted Neuro: COMMON NORMALS: patient oriented x3, CN's II-XII intact bilaterally, moves all extremities, no focal motor deficits, no sensory deficits noted and gait normal SENSORIUM/ORIENTATION: Yes alert, Yes oriented to person, Yes oriented to place and Yes oriented to time MENINGEAL SIGNS: Yes no meningeal signs Psych: COMMON NORMALS: mental status grossly normal, Normal thought process present, cooperative, normal affect and speech normal APPEARANCE: Yes well kempt ATTITUDE: Yes calm SPEECH: Yes normal speech THOUGHT PROCESS: Normal thought process present Skin: COMMON NORMALS: no rashes or lesions noted GENERAL SKIN EXAM: no rashes or lesions noted Course Vital Signs: Vital signs: Vital Signs Temperature 98.1 F 09/18/20 17:04 Pulse Rate 74 09/18/20 17:07 Respiratory Rate 15 09/18/20 17:07 Blood Pressure 111/61 09/18/20 17:07 Pulse Oximetry 95 09/18/20 17:07 MDM - GI Bleed MDM Narrative: Medical decision making narrative: The patient came to the ER for black tarry stools. He has been on blood thinners in the past for his A. fib and had also bleeding issues and was taken off them. He does take baby aspirin daily. His family member reports that he has had a EGD in the past which showed bleeding ulcers and coffee-grounds in the stomach. CT abd negative. Hemoglobin stable at 11.6. Given IV protonix. patient is stable for admission. Discussed with Dr. Castellanos who accepts for admission. Lab Data: Labs: Lab Results 09/18/20 09/18/20 09/18/20 Range/Units 16:35 16:35 16:35 WBC 7.1 (4.0-10.0) 10^3/ uL RBC 3.95 L (4.1-5.3) 10^6/u L Hgb 11.6 L (11.7-16.6) g/dL Hct 37.0 L (42.0-52.0) % MCV 93.7 (80-94) fL MCH 29.4 (28.0-34.0) pg MCHC 31.4 (30.0-36.0) g/dL RDW 14.9 (12.1-15.1) % Plt Count 298 (130-400) 10^3/c mm MPV 10.4 (7.4-10.4) fL Neut % (Auto) 62.1 % Lymph % (Auto) 20.5 % Conway % (Auto) 9.7 % Eos % (Auto) 6.6 % Baso % (Auto) 0.7 % Neut # (Auto) 4.40 (1.8-7.7) 10^3/u L Lymph # (Auto) 1.5 (0.8-4.8) 10^3/u L Conway # (Auto) 0.7 (0.2-0.9) 10^3/u L Eos # (Auto) 0.5 (0.0-0.8) 10^3/u L Baso # (Auto) 0.1 (0.0-0.1) 10^3/u L Nucleated RBC % (a uto) 0 % Nucleated RBCs # 0.0 /100WBC Sodium 136 (136-145) mmol/L Potassium 4.4 (3.5-5.1) mmol/L Chloride 98 (98-107) mmol/L Carbon Dioxide 28 (22-29) mmol/L Anion Gap 14.4 (5-19) BUN 31 H (8-23) mg/dL Creatinine 0.5 L (0.7-1.2) mg/dL GFR Calculation Not Reportable Glucose 117 H (65-115) mg/dL Calculated Osmolal ity 290 (285-295) mOsm/k g Lactate Calcium 8.3 L (8.5-10.5) mg/dL Total Bilirubin 0.2 (0.15-1.2) mg/dL AST 13 (0-40) U/L ALT 17 (0-41) U/L Alkaline Phosphata se 84 (40-130) IU/L Troponin T Baselin e 63 H (0-15) ng/L Troponin T 120 Min harriet Delta Troponin T NT-Pro-B Natriuret Pep 75 (0-450) pg/mL Total Protein 6.0 L (6.6-8.7) g/dL Albumin 3.0 L (3.5-5.2) g/dL Globulin 3.0 (1.3-4.6) g/dL Lipase 17 (13-60) U/L 09/18/20 09/18/20 09/18/20 Range/Units 18:23 18:23 19:22 WBC (4.0-10.0) 10^3/ uL RBC (4.1-5.3) 10^6/u L Hgb (11.7-16.6) g/dL Hct (42.0-52.0) % MCV (80-94) fL MCH (28.0-34.0) pg MCHC (30.0-36.0) g/dL RDW (12.1-15.1) % Plt Count (130-400) 10^3/c mm MPV (7.4-10.4) fL Neut % (Auto) % Lymph % (Auto) % Conway % (Auto) % Eos % (Auto) % Baso % (Auto) % Neut # (Auto) (1.8-7.7) 10^3/u L Lymph # (Auto) (0.8-4.8) 10^3/u L Conway # (Auto) (0.2-0.9) 10^3/u L Eos # (Auto) (0.0-0.8) 10^3/u L Baso # (Auto) (0.0-0.1) 10^3/u L Nucleated RBC % (a uto) % Nucleated RBCs # /100WBC Sodium (136-145) mmol/L Potassium (3.5-5.1) mmol/L Chloride (98-107) mmol/L Carbon Dioxide (22-29) mmol/L Anion Gap (5-19) BUN (8-23) mg/dL Creatinine (0.7-1.2) mg/dL GFR Calculation Glucose (65-115) mg/dL Calculated Osmolal ity (285-295) mOsm/k g Lactate Cancelled Calcium (8.5-10.5) mg/dL Total Bilirubin (0.15-1.2) mg/dL AST (0-40) U/L ALT (0-41) U/L Alkaline Phosphata se (40-130) IU/L Troponin T Baselin e (0-15) ng/L Troponin T 120 Min harriet Cancelled 54.52 H Delta Troponin T Cancelled -8.48 L NT-Pro-B Natriuret Pep (0-450) pg/mL Total Protein (6.6-8.7) g/dL Albumin (3.5-5.2) g/dL Globulin (1.3-4.6) g/dL Lipase (13-60) U/L Discharge Plan Discharge Patient Disposition: Admitted As Inpatient Admit Provider: Carlene Castellanos Clinical Impression: Melena Condition: Stable Coding Level of Care Code ED Administrative Job Titles for Chg Fwd Exam Comprehensive
[2020-09-18 23:01] LABS: Troponin 5 6HR 54.57 ng/L (0-15)
[2020-09-18 23:04] LABS: Troponin 5 6HR Delta -8.43 ng/L (0-12)
[2020-09-18 23:18] VITALS: BP 109/79; RESP 20; O2SAT 97
--- NOTE | 2020-09-18 23:29 | ECG_ITS ---
[facility] Test Date: 2020-09-18 Pat Name: Sid Salas Department: Room: ICU12 Gender: Male Dress Marker: : 1940 Requested By: Bjorn Arreola Order Number: [id number] Jose MD: Paolo Reyes M.D. Measurements Intervals [place] Rate: 75 P: 66 CT: 177 QRS: 20 QRSD: 73 T: 63 QT: 372 QTc: 418 Interpretive Statements SINUS RHYTHM WITH OCCASIONAL SUPRAVENTRICULAR PREMATURE COMPLEXES Compared to ECG 09/18/2020 19:34:35 No significant changes Electronically Signed On 09-19-2020 18:37:14 CDT by Paolo Reyes M.D. [id number]
--- NOTE | 2020-09-18 23:48 | PM.HP ---
Providers/Chief Complaint Admitting Physician: Carlene Castellanos Primary Care Provider: Danai Goldberg MD Chief Complaint: ABDOMINAL PAIN/ BLOOD IN STOOL History of Present Illness 80-year-old half-way resident with a past medical history significant for dementia,COVID-19 infection in 2019, chronic obstructive pulmonary disease, essential tremors, bed-bound due to severe spinal stenosis, chronic opioid use, paroxysmal atrial fibrillation, DVT /pulmonary embolism previously on anticoagulation which was stopped due to GI bleed who now presented to the hospital with dark tarry stools. Patient previous had a EGD performed in 2019 which has shown a growth like structure. Apparently, this was biopsied and found to be noncancerous. Of note patient is a poor historian. at bedside was able to provide limited history based on discussion with half-way staff. Patient is continuing to take aspirin daily. Upon arrival to emergency room patient's laboratory workup showed a WBC of 7.1, hemoglobin of 11.6, hematocrit 37.0 and a platelet count of 298. Sodium 136, potassium 4.4, chloride 98, bicarb 28, BUN 31 and creatinine of 0.5. Troponin T trend showed 63, 54, 54. ProBNP of 75. Imaging studies included a chest x-ray which showed hypoinflated lungs without any evidence of discrete consolidation. CT of chest abdomen pelvis which showed bibasilar atelectasis versus minimal infiltrate, and distal sigmoid colorectal wall thickening suspicious for colitis. In emergency room patient was given 1 L bolus of NS and Protonix 40 mg IV x1. Review of Systems General: Reports: ROS unobtainable due to mental status Medications/Allergies Home Medications Medication Instructions Recorded Confirmed Last Taken Type acetaminophen 325 mg tablet 650 mg PO Q6H PRN 03/16/19 09/18/20 Unknown History ferrous sulfate 325 mg (65 mg 325 mg PO BID@,03/16/19 09/18/20 09/18/20 History iron) tablet furosemide 40 mg tablet 40 mg PO DAILY@03/16/19 09/18/20 09/18/20 History pantoprazole 40 mg tablet,delayed 40 mg PO DAILY@08 tab 03/16/19 09/18/20 09/18/20 History release polyethylene glycol 3350 17 17 gm PO DAILY@08 03/16/19 09/18/20 09/18/20 History gram/dose oral powder sucralfate 1 gram tablet 1 gm PO Q6H tab 03/16/19 09/18/20 09/18/20 History tamsulosin 0.4 mg capsule 0.4 mg PO BID@03/16/19 09/18/20 09/18/20 History Fleet Enema 118 ml UT DAILY PRN 06/04/20 09/18/20 Unknown History Micro-Guard 1 applic TOPICAL BID@06/04/20 09/18/20 09/18/20 History alprazolam 0.5 mg PO BEDTIME@199906/04/20 09/18/20 09/17/20 History bisacodyl [Dulcolax (bisacodyl)] 5 mg PO DAILY PRN 06/04/20 09/18/20 Unknown History bisacodyl [Dulcolax (bisacodyl)] 10 mg UT DAILY PRN 06/04/20 09/18/20 Unknown History fluticasone propion-salmeterol 1 inh INHALATION Q12H 06/04/20 09/18/20 09/18/20 History [Advair Diskus] melatonin 3 mg PO BEDTIME@199906/04/20 09/18/20 09/17/20 History metoprolol tartrate 25 mg PO Q12H 06/04/20 09/18/20 09/18/20 History olopatadine 1 drp OPHTHALMIC (EYE) BID@06/04/20 09/18/20 09/18/20 History ondansetron HCl [Zofran] 4 mg PO Q6H PRN 06/04/20 09/18/20 Unknown History phenyleph-min oil-petrolatum 1 applic UT BID PRN 06/04/20 09/18/20 09/18/20 History [Preparation H] potassium chloride 20 meq PO BID@06/04/20 09/18/20 09/18/20 History primidone 250 mg PO TID@,,06/04/20 09/18/20 09/18/20 History tramadol [Ultram] 50 mg PO BID PRN 06/04/20 09/18/20 Unknown History albuterol sulfate 2.5 mg INHALATION Q6H PRN 09/18/20 09/18/20 Unknown History aspirin 81 mg PO DAILY@0800 09/18/20 09/18/20 09/18/20 History docusate sodium [Colace] 200 mg PO DAILY@1999 PRN 09/18/20 09/18/20 Unknown History morphine concentrate See Rx Instructions .ROUTE .COMPLEX 09/18/20 09/18/20 09/18/20 History naloxone See Rx Instructions .ROUTE .COMPLEX 09/18/20 09/18/20 Unknown History risperidone 0.25 mg PO BID@0800,199909/18/20 09/18/20 09/18/20 History Allergies Allergy/AdvReac Type Severity Reaction Status Date / Time celecoxib [From Celebrex] Allergy Unknown Unknown Verified 06/03/20 05:57 cephalexin Allergy Unknown Unknown Verified 06/03/20 05:57 cimetidine [From Tagamet] Allergy Unknown Unknown Verified 06/03/20 05:57 esomeprazole [From Nexium] Allergy Unknown Unknown Verified 06/03/20 05:57 Iodine and Iodide Containing Allergy Unknown Unknown Verified 06/03/20 05:57 Produc latex Allergy Unknown Unknown Verified 06/03/20 05:57 montelukast [From Singulair] Allergy Unknown Unknown Verified 06/03/20 05:57 pantoprazole [From Protonix] Allergy Unknown Unknown Verified 06/03/20 05:57 pneumococcal vaccine Allergy Unknown Unknown Verified 06/03/20 05:57 [From Pneumovax 23] sucralfate [From Carafate] Allergy Unknown Unknown Verified 06/03/20 05:57 PFSH Acute PFSH: Medical History (Updated 09/18/20 @ 23:00 by Bjorn Arreola MD) Asthma CHF (congestive heart failure) COPD (chronic obstructive pulmonary disease) COVID-19 December 2019, mild Depression Essential tremor History of anal fissures Hypertension Morbid obesity Surgical History History of colonoscopy (~2009) History of esophagogastroduodenoscopy (EGD) (~12/2018) History of hemorrhoidectomy History of knee surgery (~2010) Family History Mother Diabetes Sister Diabetes Daughter Hypertension Father Heart disease Denies family history of Anesthesia complication Bleeding disorder Social History Smoking and tobacco status: former smoker Quit status (tobacco): has quit using tobacco Second hand smoke exposure: No Alcohol intake: never Adopted: No Caregiver/support person: Yes Lives independently: No (half-way ) Housing: Jail Marital status: Highest education level completed: High School Graduate service: No Current occupational status: disabled Current occupational exposures/hazards: No Pets and animals: No History of recent travel: No Sexually active: No Current gender identity: Male Jillian/Faith: Scientologist Special jillian needs: No Agree to transfusion: No Financial difficulty paying for basics: Decline to Answer Vitals/I&O/Wt Last Vital Signs Temp 98.6 F 09/19/20 00:19 Pulse 83 09/19/20 00:19 Resp 16 09/19/20 00:19 BP 154/89 09/19/20 00:19 Pulse Ox 98 09/19/20 00:19 09/18/20 09/18/20 09/19/20 14:59 22:59 06:59 Intake Total 1000 / 1000 Balance 1000 / 1000 Weight last 48 hrs Weight 93.894 kg Physical Exam Narrative: EXAM NARRATIVE: General-alert awake oriented x2 HEENT-grossly unremarkable CVS-regular rate rhythm Chest-CTABL Abdomen-soft nontender nondistended Extremities-bilateral lower extremity edema Skin-multiple areas of bruising extremity Data : 09/19/20 00:58 09/18/20 16:35 A&P Assessment and plan (1) Melena: Hgb - 11.6 Check H/H q6hr Transfuse if < 7.0 Hold aspirin Check FOBT If recurrent episode will consult surgery EGD in 2019 - abnormal growth - unclear Protonix 40 mg IV BID ( listed as allergy however pt taking prior to arrival ) Carafate 1g Q6hr Status: Acute Additional A&P Information Additional Medical Problems Chronic obstructive pulmonary disease Paroxysmal atrial fibrillation History of COVID-19 infection 2019 History of DVT/PE Paroxysmal atrial fibrillation Hypertension Essential tremors Dementia Debility due to severe spinal stenosis DVT prophylaxis-SCDs Attestations Medical Necessity Statement*: anticipate less than 2 midnight stay in hospital for evaluation and treatment of melena Time Spent in Patient Care: Greater than 35 minutes (>than 50% of time spent in counselling and/or direct pt care on unit). Coding Level of Care Code Acute Motorcycle Police Officer for Tangela Fwd Diagnoses Melena K92.1
[2020-09-19] VITALS (12 sets, daily range): BP systolic 101–170; BP diastolic 54–89; PULSE 61–92; RESP 16–18; TEMP 36.6–37.1; O2SAT 90–98
[2020-09-19 01:07] LABS: Hematocrit 38.2 % (42.0-52.0); Hemoglobin 11.5 g/dL (11.7-16.6)
[2020-09-19] MEDS: sodium chloride 0.9% 1,000 ML 50 ML IV (04:05)
[2020-09-19 07:28] LABS: Hematocrit 34.2 % (42.0-52.0); Hemoglobin 10.6 g/dL (11.7-16.6)
--- NOTE | 2020-09-19 10:14 | PC.CHAP ---
Pastoral Care Encounter/Spiritual Assessment Type of Contact [] Declined information specialist visit [] Patient/Family/Request visit [] Outpatient visit [] Follow-up visit [] Physician referral [] Code/Alert [x] Routine visit [] Staff referral [] Actively dying [] Patient sleeping [] Family support [] [] Out of room [] Palliative care [] [] Receiving care in room [] Pre-surgical visit [] Trauma [] Long length of stay [] ICU visit [] Other: Relational/Emotional Strength x[x] Patient feels connected with others/family/visitors/staff [] Distress [] Loneliness/isolation [] Abandonment Spirituality of Patient [x] Person of Jillian [x] Attends Jewish of their Jillian [x] Believes in Prayer [] Reads Bible or Jain materials [] There are Spiritual issues to be addressed Family Worker Interventions [x] Prayer [x] Active listening [] Non-anxious presence [] Spiritual/emotional support [] Crisis/trauma care [] Spiritual counseling [] Bereavement support [] Provided bereavement packet [] Provided Bible/devotional materials [] Provided toy/stuffed animal, coloring book to patient or family member [] Provided Communion [] Anointing/[place] [] Salvation [x] Completed spiritual assessment [] Other: Impact on Illness or Injury [] Angry [] Fearful [] Anxious [] Often cries [] Exhaustion [] Unable to work [] Unable to attend hinduism [] Unable to walk/stand [] Unable to read [] Unable to drive [] Unable to eat/drink [] Unable to sleep [] Unable to be with family [] Patient intubated [] Other: Summary Time spent with patient
[2020-09-19 13:31] LABS: Hematocrit 33.5 % (42.0-52.0); Hemoglobin 10.6 g/dL (11.7-16.6)
[2020-09-19] MEDS: sucralfate 1 gm Tablet PO ×2 (13:34→20:36)
[2020-09-19] MEDS: metoprolol tartrate 25 mg Tablet PO (13:34)
--- NOTE | 2020-09-19 15:48 | P.PN_ITS ---
Subjective Subjective: Interval history: History and physical was reviewed. Sid seem to be doing okay when I saw him and denied any specific complaints. was present at bedside and we discussed limited code. No bowel movements of concern since this morning. Medications: Reviewed: Yes Vitals/I&O/Wt Last Vital Signs Temp 97.8 F 09/19/20 11:49 Pulse 82 09/19/20 11:49 Resp 16 09/19/20 11:49 BP 170/64 09/19/20 11:49 Pulse Ox 92 09/19/20 11:49 09/19/20 09/19/20 09/19/20 06:59 14:59 22:59 Intake Total 0 / 1000 Output Total 600 / 600 Balance -600 / 400 Weight last 48 hrs Weight 93.894 kg Physical Exam Narrative: EXAM NARRATIVE: General exam demonstrates a confused male in no apparent distress Neck is supple no lymphadenopathy or thyromegaly Cardiovascular regular rate and rhythm without murmur Lungs clear no wheezing or crackles Abdomen is soft with positive bowel sounds. Nontender Extremities no cyanosis clubbing or edema Urinary Catheter Management^: Armando: Cath Placed During This Visit: yes Reason for Continuing Indwelling Catheter: Acute Urinary Retention or Obstruction Urinary Catheter Date of Insertion: 09/19/20 Urinary Catheter Time of Insertion: 02:33 Data : 09/19/20 13:20 09/18/20 16:35 A&P Assessment and plan (1) Melena: Presumed upper GI bleed. Hemoglobin has drifted down 1 g since last night and patient has had 1 further melanotic stool since coming to the floor. According to he had multiple melanotic stools in the emergency department. Continue Protonix Discussed with current goals of care. She wants him conservatively managed. Will initiate clear liquid diet and observe for any bleeding Repeat hemoglobin tomorrow If hemoglobin remains stable and no evidence of current bleeding will discharge tomorrow. Status: Acute (2) Dementia: No change from baseline according to . Status: Acute Additional A&P Information History of paroxysmal atrial fibrillation. Appears to be in sinus rhythm currently. Not candidate for anticoagulation secondary to GI bleed. History of non-ST elevation myocardial infarction. Holding aspirin. un derstands risks History of pulmonary embolism, off anticoagulation secondary to GI bleeding COPD, no evidence of exacerbation multiple other medical problems as outlined in his past medical history Limited code, see order SCDs for DVT prophylaxis, anticoagulation contraindicated secondary to GI bl eeding Attestations Medical Necessity Statement*: Needs continued hospital stay for close monitoring secondary to drop in hemoglobin today and this patient with GI bleed who we are managing conservatively. Need to initiate diet which will occur tonight. Coding Level of Care Code Acute Rescue Worker for Tangela Obrien Diagnoses Melena K92.1 Dementia F03.90
[2020-09-19 16:18] LABS: Add Urine Microscopic? YES; Bilirubin Urine Neg (Negative); Blood Urine 3+ (Negative); Glucose Urine UA Norm (Normal); Ketones Urine Negative (Negative); Leukocyte Esterase Urine 1+ (Negative); Nitrate Urine Negative (Negative); Protein Urine Trace (Negative); Specific Gravity, Urine 1.015 (1.005-1.030); Urine Color Yellow (Yellow); Urobilinogen Urine Norm (Negative); pH Urine 5 (5-7)
[2020-09-19 16:19] LABS: Add Urine Culture? Yes; Bacteria Urine 4+ /hpf; Mucus Urine 1+ /hpf; RBC Urine 80-100 /hpf (0-2); Squamous Epithelial Cell Urine 0-4 /hpf (0-5); Urine Appearance SL Hazy (CLEAR); WBC Urine 15-25 /hpf (0-5)
[2020-09-19] MEDS: ciprofloxacin 400 MG/200 ML PREMIX 200 MG IV (20:35)
[2020-09-19] MEDS: risperiDONE 0.25 mg Tablet PO (20:36)
[2020-09-19] MEDS: tamsulosin 0.4 mg Capsule PO (20:36)
[2020-09-20] VITALS (9 sets, daily range): BP systolic 110–144; BP diastolic 53–77; PULSE 66–89; RESP 16–18; TEMP 36.6–37.3; O2SAT 94–98
[2020-09-20] MEDS: sucralfate 1 gm Tablet PO ×2 (03:09→09:03)
[2020-09-20] MEDS: sodium chloride 0.9% 1,000 ML 30 ML IV (03:09)
[2020-09-20] MEDS: metoprolol tartrate 25 mg Tablet PO ×2 (03:11→15:28)
[2020-09-20 03:24] LABS: Basophils % 0.3 %; Eosinophils # 0.2 10^3/uL (0.0-0.8); Eosinophils % 3.4 %; Hematocrit 34.4 % (42.0-52.0); Hemoglobin 10.6 g/dL (11.7-16.6); Mean Corpuscular HGB Conc 30.8 g/dL (30.0-36.0); Mean Corpuscular Hemoglobin 29.4 pg (28.0-34.0); Mean Corpuscular Volume 95.3 fL (80-94); Mean Platelet Volume 10.6 fL (7.4-10.4); Monocytes # 0.6 10^3/uL (0.2-0.9); Monocytes % 8.7 %; Neutrophils # 5.25 10^3/uL (1.8-7.7); Neutrophils % 73.3 %; Nucleated Red Blood Cells % 0 %; Platelet Count 241 10^3/cmm (130-400); Red Blood Count 3.61 10^6/uL (4.1-5.3); Red Cell Distribution Width 14.7 % (12.1-15.1); White Blood Count 7.2 10^3/uL (4.0-10.0)
[2020-09-20 03:43] LABS: Anion Gap 11.2 (5-19); Blood Urea Nitrogen 17 mg/dL (8-23); Carbon Dioxide 24 mmol/L (22-29); Chloride 104 mmol/L (98-107); Glucose 96 mg/dL (65-115); Osmolality Calculated 283 mOsm/kg (285-295); Potassium 3.2 mmol/L (3.5-5.1); Sodium 136 mmol/L (136-145)
[2020-09-20] MEDS: potassium chloride ER 20 mEq Tablet 40 MEQ PO (09:02)
[2020-09-20] MEDS: tamsulosin 0.4 mg Capsule PO ×2 (09:03→21:20)
[2020-09-20] MEDS: risperiDONE 0.25 mg Tablet PO ×2 (09:03→21:19)
[2020-09-20] MEDS: ciprofloxacin 400 MG/200 ML PREMIX 200 MG IV ×2 (09:49→21:19)
[2020-09-20] MEDS: pantoprazole 40 mg SDV IVP ×2 (09:49→21:20)
--- NOTE | 2020-09-20 10:22 | PC.CHAP ---
Pastoral Care Encounter/Spiritual Assessment Type of Contact [] Declined summer internship visit [] Patient/Family/Request visit [] Outpatient visit [] Follow-up visit [] Physician referral [] Code/Alert [x] Routine visit [] Staff referral [] Actively dying [] Patient sleeping [] Family support [] [] Out of room [] Palliative care [] [x] Receiving care in room [] Pre-surgical visit [] Trauma [] Long length of stay [] ICU visit [x] Other: taking care because he was unable to communicate Relational/Emotional Strength [x] Patient feels connected with others/family/visitors/staff [] Distress [] Loneliness/isolation [] Abandonment Spirituality of Patient [x] Person of Jillian [] Attends Mu-Ism of their Jillian [x] Believes in Prayer [] Reads Bible or Mandaen materials [] There are Spiritual issues to be addressed Internal Affairs Commander Interventions [x] Prayer [x] Active listening [x] Non-anxious presence [x] Spiritual/emotional support [] Crisis/trauma care [x] Spiritual counseling [] Bereavement support [] Provided bereavement packet [] Provided Bible/devotional materials [] Provided toy/stuffed animal, coloring book to patient or family member [] Provided Communion [] Anointing/Hankins [] Salvation [x] Completed spiritual assessment [] Other: Impact on Illness or Injury [] Angry [] Fearful [x] Anxious [] Often cries [] Exhaustion [] Unable to work [] Unable to attend zoroastrianism [] Unable to walk/stand [] Unable to read [] Unable to drive [] Unable to eat/drink [] Unable to sleep [] Unable to be with family [] Patient intubated [] Other: Summary taking care because he was unable to communicate he was pain both had a good attitude, going home soon Time spent with patient 10 mins
--- NOTE | 2020-09-20 10:43 | PM.PN ---
Subjective Subjective: Interval history: Nursing alerted me that Sid had quite a few bowel movements last night that were dark and tarry. Perhaps 4 are recorded. Medications: Reviewed: Yes Vitals/I&O/Wt Last Vital Signs Temp 98.7 F 09/20/20 08:18 Pulse 71 09/20/20 08:18 Resp 16 09/20/20 08:18 BP 123/74 09/20/20 08:18 Pulse Ox 97 09/20/20 08:18 09/19/20 09/20/20 09/20/20 22:59 06:59 14:59 Intake Total 1147.5 / 1147.5 172.5 / 1320.0 120 / 120 Output Total 200 / 200 Balance 1147.5 / 1147.5 -27.5 / 1120.0 120 / 120 Weight last 48 hrs Weight 93.894 kg Physical Exam Narrative: EXAM NARRATIVE: General exam demonstrates a confused male in no apparent distress Neck is supple no lymphadenopathy or thyromegaly Cardiovascular regular rate and rhythm without murmur Lungs clear no wheezing or crackles Abdomen is soft with positive bowel sounds. Nontender Extremities no cyanosis clubbing or edema Urinary Catheter Management^: Armando: Cath Placed During This Visit: yes Reason for Continuing Indwelling Catheter: Acute Urinary Retention or Obstruction Urinary Catheter Date of Insertion: 09/19/20 Urinary Catheter Time of Insertion: 02:33 Data : 09/20/20 02:07 09/20/20 02:07 A&P Assessment and plan (1) Melena: Presumed upper GI bleed. Hemoglobin drifted down from admission 1 g. It is remained stable since yesterday evening. However, he continues to have frequent dark tarry bowel movements last night. Continue Protonix Discussed with current goals of care. She wants him conservatively managed unless bleeding does not stop. Repeat hemoglobin this afternoon Status: Acute (2) Dementia: No change from baseline according to . Status: Acute Additional A&P Information Hypokalemia. Supplement. Probable UTI. Continue Cipro. Await culture. History of paroxysmal atrial fibrillation. Appears to be in sinus rhythm currently. Not candidate for anticoagulation secondary to GI bleed. History of non-ST elevation myocardial infarction. Holding aspirin. understands risks History of pulmonary embolism, off anticoagulation secondary to GI bleeding COPD, no evidence of exacerbation multiple other medical problems as outlined in his past medical history Limited code, see order SCDs for DVT prophylaxis, anticoagulation contraindicated secondary to GI bleeding Attestations Medical Necessity Statement*: Needs continued hospitalization secondary to continued blood loss. 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
[2020-09-20 13:59] LABS: Hematocrit 34.6 % (42.0-52.0); Hemoglobin 10.3 g/dL (11.7-16.6)
[2020-09-21] VITALS (7 sets, daily range): BP systolic 97–160; BP diastolic 60–81; PULSE 72–80; RESP 15–17; TEMP 36.9–37.4; O2SAT 95–98
[2020-09-21 06:55] LABS: Basophils % 0.5 %; Eosinophils # 0.5 10^3/uL (0.0-0.8); Eosinophils % 7.2 %; Hematocrit 34.8 % (42.0-52.0); Hemoglobin 10.7 g/dL (11.7-16.6); Lymphocytes # 1.2 10^3/uL (0.8-4.8); Lymphocytes % 19.1 %; Mean Corpuscular HGB Conc 30.7 g/dL (30.0-36.0); Mean Corpuscular Hemoglobin 29.9 pg (28.0-34.0); Mean Corpuscular Volume 97.2 fL (80-94); Monocytes # 0.6 10^3/uL (0.2-0.9); Monocytes % 9.6 %; Neutrophils # 3.94 10^3/uL (1.8-7.7); Neutrophils % 63.3 %; Nucleated Red Blood Cells % 0 %; Platelet Count 234 10^3/cmm (130-400); Red Blood Count 3.58 10^6/uL (4.1-5.3); Red Cell Distribution Width 15.1 % (12.1-15.1); White Blood Count 6.2 10^3/uL (4.0-10.0)
[2020-09-21 07:17] LABS: Alanine Aminotransferase 12 U/L (0-41); Albumin Level 2.7 g/dL (3.5-5.2); Alkaline Phosphatase 70 IU/L (40-130); Anion Gap 13.3 (5-19); Aspartate Amino Transferase 12 U/L (0-40); Blood Urea Nitrogen 11 mg/dL (8-23); Carbon Dioxide 25 mmol/L (22-29); Chloride 105 mmol/L (98-107); Globulin 2.6 g/dL (1.3-4.6); Glucose 89 mg/dL (65-115); Magnesium 1.9 mg/dL (1.7-2.3); Osmolality Calculated 289 mOsm/kg (285-295); Potassium 3.3 mmol/L (3.5-5.1); Sodium 140 mmol/L (136-145); Total Bilirubin 0.2 mg/dL (0.15-1.2); Total Protein 5.3 g/dL (6.6-8.7)
[2020-09-21] MEDS: pantoprazole 40 mg SDV IVP (08:52)
[2020-09-21] MEDS: risperiDONE 0.25 mg Tablet PO (08:52)
[2020-09-21] MEDS: ciprofloxacin 400 MG/200 ML PREMIX 200 MG IV (08:52)
[2020-09-21] MEDS: tamsulosin 0.4 mg Capsule PO (08:52)
--- NOTE | 2020-09-21 09:56 | PM.DCS ---
Discharge Providers Date of Admission: 09/19/20 16:09 Date of Discharge: September 21, 2020 Attending Provider at Admission: Carlene Castellanos Attending Provider at Discharge: Narinder Goldberg MD Primary Care Provider: Dania Goldberg MD Diagnoses at Discharge Discharge Diagnosis (1) Melena: Status: Acute (2) Dementia: Status: Acute Reason for Visit Reason for Visit: ABDOMINAL PAIN/ BLOOD IN STOOL Hospital Course Hospital Course Sid is an 80-year-old white male who resides in a detention who presented to the hospital with melanotic stool. His aspirin was discontinued. He received IV Protonix. Discussions were held with his family regarding aggressive versus conservative treatment. They did not want him to undergo any EGD or colonoscopy with his comorbidities and dementia so conservative treatment occurred. During the first part of his hospital course he continued to pass some melanotic stools and hemoglobin dropped approximately 1 g. Stools then tapered off, and hemoglobin remained stable, increasing slightly at discharge. Secondary to increasing hemoglobin, no significant dark stools he was discharged back to the nursing facility with a CBC and BMP as well as primary care provider visit in 3 to 5 days. Protonix will be increased to 40 mg twice daily. Discharge hemoglobin was 10.7. He will not resume his aspirin. Physical Exam Narrative: EXAM NARRATIVE: General exam is no apparent distress Neck is supple no lymphadenopathy or thyromegaly Cardiovascular regular rate and rhythm without murmur Lungs clear Abdomen is soft with positive bowel sounds Extremities no cyanosis clubbing or edema Urinary Catheter Management^: Armando: Cath Placed During This Visit: yes Reason for Continuing Indwelling Catheter: Acute Urinary Retention or Obstruction Urinary Catheter Date of Insertion: 09/19/20 Urinary Catheter Time of Insertion: 02:33 Discharge Data Data Completed and Pending: Completed Studies During Hospitalization Category Date Time Status CT chest abd pel wo con Urgent Cat Scan 09/18/20 17:31 Completed XR chest 1V jv ble [id number] Urgent Exams 09/18/20 17:25 Completed Pending at discharge Category Date Time Status Urine Culture Sta t Lab 09/19/20 13:43 Results Labs from last 24 hours 09/21/20 09/21/20 09/20/20 05:43 05:43 13:41 WBC 6.2 RBC 3.58 L Hgb 10.7 L 10.3 L Hct 34.8 L 34.6 L MCV 97.2 H MCH 29.9 MCHC 30.7 RDW 15.1 Plt Count 234 MPV 10.0 Neut % (Auto) 63.3 Lymph % (Auto) 19.1 [place] % (Auto) 9.6 Eos % (Auto) 7.2 Baso % (Auto) 0.5 Neut # (Auto) 3.94 Lymph # (Auto) 1.2 [place] # (Auto) 0.6 Eos # (Auto) 0.5 Baso # (Auto) 0.0 Nucleated RBC % (a uto) 0 Nucleated RBCs # 0.0 Sodium 140 Potassium 3.3 L Chloride 105 Carbon Dioxide 25 Anion Gap 13.3 BUN 11 Creatinine 0.5 L GFR Calculation Not Reportable Glucose 89 Calculated Osmolal ity 289 Calcium 8.0 L Magnesium 1.9 Total Bilirubin 0.2 AST 12 ALT 12 Alkaline Phosphata se 70 Total Protein 5.3 L Albumin 2.7 L Globulin 2.6 Vitals: Last Vital Signs Temp 99.4 F 09/21/20 07:53 Pulse 78 09/21/20 08:05 Resp 17 09/21/20 07:57 BP 160/75 09/21/20 07:53 Pulse Ox 95 09/21/20 07:57 Discharge Plan Discharge Patient Disposition: Xfer SNF Condition: Stable Prescriptions: Continued furosemide [Lasix] 40 mg tablet 40 mg PO DAILY@05 RF: 0 ferrous sulfate [iron] 325 mg (65 mg iron) tablet 325 mg PO BID@ RF: 0 sucralfate 1 gram tablet 1 gm PO Q6H RF: 0 polyethylene glycol 3350 [Miralax] 17 gram/dose powder 17 gm PO DAILY@08 RF: 0 acetaminophen [Tylenol] 325 mg tablet 650 mg PO Q6H PRN (Reason: Pain) RF: 0 tamsulosin [Flomax] 0.4 mg capsule 0.4 mg PO BID@ RF: 0 morphine concentrate 100 mg/5 mL (20 mg/mL) Solution See Rx Instructions .ROUTE .COMPLEX RF: 0 naloxone 0.4 mg/mL Solution See Rx Instructions .ROUTE .COMPLEX RF: 0 risperidone 0.25 mg Tablet 0.25 mg PO BID@799,1999 RF: 0 Colace 100 mg capsule 200 mg PO DAILY@1999 PRN (Reason: prn) RF: 0 albuterol sulfate 2.5 mg/0.5 mL solution for nebulization 2.5 mg inhalation Q6H PRN (Reason: Wheezing) RF: 0 fluticasone propion-salmeterol [Advair Diskus] 250-50 mcg/dose Blister With Device 1 inh INHALATION Q12H RF: 0 ondansetron HCl [Zofran] 4 mg Tablet 4 mg PO Q6H PRN (Reason: Nausea) RF: 0 Micro-Guard 2 % Powder 1 applic TOPICAL BID@ RF: 0 melatonin 3 mg Tablet 3 mg PO BEDTIME@1999 RF: 0 tramadol [Ultram] 50 mg Tablet 50 mg PO BID PRN (Reason: Pain) RF: 0 alprazolam 0.5 mg Tablet 0.5 mg PO BEDTIME@1999 RF: 0 primidone 250 mg Tablet 250 mg PO TID@ RF: 0 bisacodyl [Dulcolax (bisacodyl)] 10 mg Suppository 10 mg IN DAILY PRN (Reason: Constipation) RF: 0 olopatadine 0.1 % Drops 1 drp OPHTHALMIC (EYE) BID@ RF: 0 Fleet Enema 19-7 gram/118 mL Enema 118 ml IN DAILY PRN (Reason: Constipation) RF: 0 bisacodyl [Dulcolax (bisacodyl)] 5 mg Tablet,Delayed Release (Dr/Ec) 5 mg PO DAILY PRN (Reason: Constipation) RF: 0 metoprolol tartrate 25 mg Tablet 25 mg PO Q12H RF: 0 Preparation H 0.25-14-74.9 % Ointment 1 applic IN BID PRN (Reason: Hemorrhoids) RF: 0 potassium chloride 20 mEq Tablet Extended Release 20 meq PO BID@ RF: 0 Changed pantoprazole 40 mg tablet,delayed release (DR/EC) 40 mg PO BID Qty: 0 RF: 0 Discontinued aspirin 81 mg Tablet,Chewable 81 mg PO DAILY@0800 RF: 0 Discharge Orders: Discharge Order (Routine); Ordered 09/21/20 Ordered By: Narinder Goldberg Discharge Diet: Usual diet Discharge Activity: Increase activity as tolerated Activity Restrictions/Additional Instructions: Follow-up with primary care provider at [facility] facility 3 to 5 days. CBC and BMP on follow-up. No anti-inflammatories No aspirin Note the increase in Protonix to 40 mg twice daily Discharge Attestations Time Spent in Discharge Care*: greater than 30 min Quality Metrics Clinical Quality Measures During this hospital stay, did patient experience: None Coding Level of Care Code Acute [facility] note Diagnoses Melena K92.1 Dementia F03.90
[2020-09-21] MEDS: ciprofloxacin 500 mg Tablet PO (10:02)
[2020-09-21] MEDS: pantoprazole DR 40 mg Tablet PO (10:02)
[2020-09-21] MEDS: acetaminophen 325 mg Tablet 650 MG PO (12:03)
[2020-09-21] MEDS: ondansetron 4 MG Tablet PO (12:56)
--- NOTE | 2020-09-21 15:23 | PC.RESP ---
PULMONARY REHAB INFORMATION SENT TO PATIENT.
== END 2020-09-21 13:28 | disposition skilled nursing facility (03) | DRG 378 ==
LOC: ER 17:37 → ICU 22:30 → MEDSURG 23:44
PROVIDERS: Admitting Provider Hospitalist; Emergency Provider Family Medicine; PCP Family Medicine; Visit Provider Internal Medicine
DX: K92.1 Melena (principal); N39.0 Urinary tract infection, site not specified; F03.90 Unspecified dementia, unspecified severity, without behavioral disturbance, psychotic disturbance, mood disturbance, and anxiety; Z86.16 Personal history of COVID-19; J44.9 Chronic obstructive pulmonary disease, unspecified; G25.0 Essential tremor; Z74.01 Bed confinement status; M48.00 Spinal stenosis, site unspecified; Z79.891 Long term (current) use of opiate analgesic; I48.0 Paroxysmal atrial fibrillation; Z86.718 Personal history of other venous thrombosis and embolism; Z86.711 Personal history of pulmonary embolism; I50.9 Heart failure, unspecified; I11.0 Hypertensive heart disease with heart failure; F32.9 Major depressive disorder, single episode, unspecified; E66.01 Morbid (severe) obesity due to excess calories; Z68.28 Body mass index [BMI] 28.0-28.9, adult; Z87.891 Personal history of nicotine dependence; I25.2 Old myocardial infarction; E87.6 Hypokalemia; Z79.51 Long term (current) use of inhaled steroids
CPT/HCPCS: 36415; 51702; 71045; 71250; 74176; 80048; 80053; 81001; 82274; 83690; 83735; 83880; 84484; 85014; 85018; 85025; 86850; 86900; 87086; 93005; 94640; 96361; 96374; 99285; C9113; G0378; J0744; J7030; Q0162

== ENCOUNTER 2020-09-28 13:33 | Emergency (ER) | payer MEDICARE, OTHER, SELFPAY ==
[2020-09-28 13:39] VITALS: BP 114/76; PULSE 66; RESP 18; TEMP 36.4; O2SAT 97; BMI 30.2
--- NOTE | 2020-09-28 14:32 | ED_ITS ---
Documented by User: Fadi Hanna DO 09/30/20 16:49 HPI - Psych General: Chief Complaint: Psychiatric Symptoms Stated Complaint: PSYCH EVAL Time Seen by Provider: 09/28/20 13:36 History of Present Illness: HPI Narrative: 80-year-old male presents for numerous senior living via EMS. Patient is alert although mildly confused he denies any suicidal homicidal ideation. They are requesting he be admitted to geriatric psych facility because he has been accusing staff members of abusing them. MD complaint: other Onset (ago): minute(s) Duration: constant History of same: Yes Relieving factors: none Exacerbating factors: none Associated psychiatric symptoms: other (Dementia) Treatments prior to arrival: none Review of Systems Const: Denies: fever(s), chills, body aches, change in appetite, fatigue or malaise ENMT: Denies: throat pain, ear or mastoid pain, nasal discharge or nasal congestion Card: Denies: chest pain, edema, dyspnea on exertion or orthopnea Resp: Denies: dyspnea, productive cough or non-productive cough GI: Denies: abdominal pain, nausea, vomiting, hematemesis, coffee ground emesis, diarrhea, constipation, bloating, hematochezia or melena : Denies: flank pain, dysuria, urinary frequency or urinary urgency PFSH ED PFSH: Medical History Asthma CHF (congestive heart failure) COPD (chronic obstructive pulmonary disease) COVID-19 December 2019, mild Dementia Depression Essential tremor History of anal fissures Hypertension Morbid obesity Surgical History History of colonoscopy (~2009) History of esophagogastroduodenoscopy (EGD) (~12/2018) History of hemorrhoidectomy History of knee surgery (~2010) Family History Mother Diabetes Sister Diabetes Daughter Hypertension Father Heart disease Denies family history of Anesthesia complication Bleeding disorder Social History Smoking and tobacco status: former smoker Quit status (tobacco): has quit using tobacco Second hand smoke exposure: No Alcohol intake: never Adopted: No Caregiver/support person: Yes Lives independently: No (senior living ) Housing: Retirement Marital status: Highest education level completed: High School Graduate service: No Current occupational status: disabled Current occupational exposures/hazards: No Pets and animals: No History of recent travel: No Sexually active: No Current gender identity: Male Jillian/Mosque: Protestant Special jillian needs: No Agree to transfusion: No Financial difficulty paying for basics: Decline to Answer Physical Exam Const: COMMON NORMALS: no acute distress GENERAL APPEARANCE: cooperative and comfortable ORIENTATION/CONSCIOUSNESS: Yes awake, Yes oriented to person, Yes oriented to place and Yes oriented to time HENMT: COMMON NORMALS: normocephalic, atraumatic and hearing grossly normal bilaterally HEAD & SCALP: normocephalic and atraumatic Neck/C-Spine: COMMON NORMALS: no JVD Resp: COMMON NORMALS: normal respiratory effort, No retractions, No use of accessory muscles and clear to auscultation bilaterally AUSCULTATION: clear to auscultation bilaterally Cardio: COMMON NORMALS: no JVD, regular rate, regular rhythm and No murmurs present (Cardio) RATE: regular rate RHYTHM: regular rhythm GI: COMMON NORMALS: Soft to palpation and No hepatosplenomegaly present AUSCULTATION: Yes normoactive bowel sounds PALPATION: Yes Soft to palpation, Yes Tenderness to palpation present (GI) (Bladder palpable to the midline to the level of the umbilicus), No Guarding due to palpation present (GI) and Yes No hepatosplenomegaly present Extremity: COMMON NORMALS: normal to inspection, capillary refill normal, no clubbing, cyanosis or edema, no calf tenderness and no pedal edema Neuro: SENSORIUM/ORIENTATION: Yes oriented to person, Yes oriented to place and Yes oriented to time Skin: COMMON NORMALS: no rashes or lesions noted GENERAL SKIN EXAM: no rashes or lesions noted Course ED course: I will Armando cath placed bladder was palpable to the umbilicus. 1000 mL out with significant relief of discomfort Vital Signs: Vital signs: Vital Signs Temperature 97.6 F 09/28/20 13:39 Pulse Rate 81 09/29/20 05:14 Respiratory Rate 16 09/29/20 05:14 Blood Pressure 108/79 09/29/20 05:14 Pulse Oximetry 95 09/29/20 05:14 MDM - Psych MDM Narrative: Medical decision making narrative: Returned over Dr. Smith changes have see his notes for final diagnosis and disposition. Lab Data: Labs: Lab Results 09/28/20 09/28/20 09/28/20 Range/Units 14:00 14:00 14:30 WBC (4.0-10.0) 10^3/ uL RBC (4.1-5.3) 10^6/u L Hgb (11.7-16.6) g/dL Hct (42.0-52.0) % MCV (80-94) fL MCH (28.0-34.0) pg MCHC (30.0-36.0) g/dL RDW (12.1-15.1) % Plt Count (130-400) 10^3/c mm MPV (7.4-10.4) fL Neut % (Auto) % Lymph % (Auto) % [place] % (Auto) % Eos % (Auto) % Baso % (Auto) % Neut # (Auto) (1.8-7.7) 10^3/u L Lymph # (Auto) (0.8-4.8) 10^3/u L [place] # (Auto) (0.2-0.9) 10^3/u L Eos # (Auto) (0.0-0.8) 10^3/u L Baso # (Auto) (0.0-0.1) 10^3/u L Nucleated RBC % (a uto) % Nucleated RBCs # /100WBC Sodium 136 (136-145) mmol/L Potassium 4.2 (3.5-5.1) mmol/L Chloride 98 (98-107) mmol/L Carbon Dioxide 31 H (22-29) mmol/L Anion Gap 11.2 (5-19) BUN 17 (8-23) mg/dL Creatinine 0.5 L (0.7-1.2) mg/dL GFR Calculation Not Reportable Glucose 97 (65-115) mg/dL Calculated Osmolal ity 283 L (285-295) mOsm/k g Calcium 8.5 (8.5-10.5) mg/dL Total Bilirubin 0.2 (0.15-1.2) mg/dL AST 9 (0-40) U/L ALT 15 (0-41) U/L Alkaline Phosphata se 80 (40-130) IU/L Total Protein 5.9 L (6.6-8.7) g/dL Albumin 3.1 L (3.5-5.2) g/dL Globulin 2.8 (1.3-4.6) g/dL TSH 1.45 (0.27-4.20) uIU/ mL Thyroxine (T4) 6.5 (4.9-10.5) mcg/d L Total T3 92 (76-181) ng/dL Urine Color (Yellow) Urine Appearance (CLEAR) Urine pH (5-7) Ur Specific Gravit y (1.005-1.030) Urine Protein (Negative) Urine Glucose (UA) (Normal) Urine Ketones (Negative) Urine Blood (Negative) Urine Nitrate (Negative) Urine Bilirubin (Negative) Urine Urobilinogen (Negative) mg/dL Ur Leukocyte Grace ase (Negative) Salicylates < 0.3 L (3-10) mg/dL Urine Opiates Scre en (Negative) ng/mL Acetaminophen < 5.0 L (10-30) ug/mL Ur Barbiturates Sc reen (Negative) ng/mL Ur Phencyclidine S crn (Negative) ng/mL Ur Amphetamines Sc reen (Negative) ng/mL U Benzodiazepines Scrn (Negative) ng/mL Urine Cocaine Scre en (Negative) ng/mL U Marijuana (THC) Screen (Negative) ng/mL Ethyl Alcohol < 10 (0-10) mg/dL 09/28/20 09/28/20 09/28/20 Range/Units 14:30 14:30 14:30 WBC 6.0 (4.0-10.0) 10^3/ uL RBC 3.86 L (4.1-5.3) 10^6/u L Hgb 11.4 L (11.7-16.6) g/dL Hct 37.1 L (42.0-52.0) % MCV 96.1 H (80-94) fL MCH 29.5 (28.0-34.0) pg MCHC 30.7 (30.0-36.0) g/dL RDW 15.1 (12.1-15.1) % Plt Count 271 (130-400) 10^3/c mm MPV 10.1 (7.4-10.4) fL Neut % (Auto) 71.9 % Lymph % (Auto) 14.6 % [place] % (Auto) 8.1 % Eos % (Auto) 4.6 % Baso % (Auto) 0.5 % Neut # (Auto) 4.33 (1.8-7.7) 10^3/u L Lymph # (Auto) 0.9 (0.8-4.8) 10^3/u L [place] # (Auto) 0.5 (0.2-0.9) 10^3/u L Eos # (Auto) 0.3 (0.0-0.8) 10^3/u L Baso # (Auto) 0.0 (0.0-0.1) 10^3/u L Nucleated RBC % (a uto) 0 % Nucleated RBCs # 0.0 /100WBC Sodium (136-145) mmol/L Potassium (3.5-5.1) mmol/L Chloride (98-107) mmol/L Carbon Dioxide (22-29) mmol/L Anion Gap (5-19) BUN (8-23) mg/dL Creatinine (0.7-1.2) mg/dL GFR Calculation Glucose (65-115) mg/dL Calculated Osmolal ity (285-295) mOsm/k g Calcium (8.5-10.5) mg/dL Total Bilirubin (0.15-1.2) mg/dL AST (0-40) U/L ALT (0-41) U/L Alkaline Phosphata se (40-130) IU/L Total Protein (6.6-8.7) g/dL Albumin (3.5-5.2) g/dL Globulin (1.3-4.6) g/dL TSH (0.27-4.20) uIU/ mL Thyroxine (T4) (4.9-10.5) mcg/d L Total T3 (76-181) ng/dL Urine Color Straw (Yellow) Urine Appearance Clear (CLEAR) Urine pH 7 (5-7) Ur Specific Gravit y 1.005 (1.005-1.030) Urine Protein Neg (Negative) Urine Glucose (UA) Norm (Normal) Urine Ketones Negative (Negative) Urine Blood Neg (Negative) Urine Nitrate Negative (Negative) Urine Bilirubin Neg (Negative) Urine Urobilinogen Norm (Negative) mg/dL Ur Leukocyte Grace ase Negative (Negative) Salicylates (3-10) mg/dL Urine Opiates Scre en Positive H (Negative) ng/mL Acetaminophen (10-30) ug/mL Ur Barbiturates Sc reen Positive H (Negative) ng/mL Ur Phencyclidine S crn Negative (Negative) ng/mL Ur Amphetamines Sc reen Negative (Negative) ng/mL U Benzodiazepines Scrn Positive H (Negative) ng/mL Urine Cocaine Scre en Negative (Negative) ng/mL U Marijuana (THC) Screen Negative (Negative) ng/mL Ethyl Alcohol (0-10) mg/dL Discharge Plan Discharge Patient Disposition: Home Clinical Impression: Dementia, Acute urinary retention Condition: Stable Prescriptions: No Action furosemide [Lasix] 40 mg tablet 40 mg PO DAILY@0800 RF: 0 ferrous sulfate [iron] 325 mg (65 mg iron) tablet 325 mg PO BID@08,20 RF: 0 sucralfate 1 gram tablet 1 gm PO Q6H RF: 0 polyethylene glycol 3350 [Miralax] 17 gram/dose powder 17 gm PO DAILY@08 RF: 0 acetaminophen [Tylenol] 325 mg tablet 650 mg PO Q6H PRN (Reason: Pain) RF: 0 tamsulosin [Flomax] 0.4 mg capsule 0.4 mg PO BID@, RF: 0 morphine concentrate 100 mg/5 mL (20 mg/mL) Solution 5 mg PO Q2H PRN (Reason: Pain) RF: 0 naloxone 0.4 mg/mL Solution See Rx Instructions .ROUTE .COMPLEX RF: 0 risperidone 0.25 mg Tablet 0.25 mg PO BID@0800,1999 RF: 0 docusate sodium [Colace] 100 mg capsule 200 mg PO DAILY@1999 PRN (Reason: prn) RF: 0 albuterol sulfate 2.5 mg/0.5 mL solution for nebulization 2.5 mg inhalation Q6H PRN (Reason: Wheezing) RF: 0 pantoprazole 40 mg tablet,delayed release (DR/EC) 40 mg PO BID Qty: 0 RF: 0 fluticasone propion-salmeterol [Advair Diskus] 250-50 mcg/dose Blister With Device 1 inh INHALATION Q12H RF: 0 ondansetron HCl [Zofran] 4 mg Tablet 4 mg PO Q6H PRN (Reason: Nausea) RF: 0 Micro-Guard 2 % Powder 1 applic TOPICAL BID@ RF: 0 melatonin 3 mg Tablet 3 mg PO BEDTIME@1999 RF: 0 tramadol [Ultram] 50 mg Tablet 50 mg PO BID PRN (Reason: Pain) RF: 0 alprazolam 0.5 mg Tablet 0.5 mg PO BEDTIME@1999 RF: 0 primidone 250 mg Tablet 250 mg PO TID@,, RF: 0 bisacodyl [Dulcolax (bisacodyl)] 10 mg Suppository 10 mg ID DAILY PRN (Reason: Constipation) RF: 0 olopatadine 0.1 % Drops 1 drp OPHTHALMIC (EYE) BID@ RF: 0 Fleet Enema 19-7 gram/118 mL Enema 118 ml ID DAILY PRN (Reason: Constipation) RF: 0 bisacodyl [Dulcolax (bisacodyl)] 5 mg Tablet,Delayed Release (Dr/Ec) 5 mg PO DAILY PRN (Reason: Constipation) RF: 0 metoprolol tartrate 25 mg Tablet 25 mg PO Q12H RF: 0 Preparation H 0.25-14-74.9 % Ointment 1 applic ID BID PRN (Reason: Hemorrhoids) RF: 0 potassium chloride 20 mEq Tablet Extended Release 20 meq PO BID@ RF: 0 Discharge Orders: Discharge ED (Routine); Ordered 09/29/20 Ordered By: Kyler Cooper Referrals: Dania Goldberg MD [Primary Care Provider] - 4-7 days Patient Instructions: Urinary Retention in Men (ED), Dementia (ED), Armando Catheter Placement and Care (ED) Activity Restrictions/Additional Instructions: Return for fever, worsening mental status, worsening behaviors. Coding Level of Care Code ED Stone Sandblaster for Chg Fwd Exam Comprehensive Documented by User: Kyler Cooper DO 09/29/20 07:05 HPI - Psych General: Chief Complaint: Psychiatric Symptoms Stated Complaint: PSYCH EVAL Time Seen by Provider: 09/28/20 13:36 PFS ED PFSH: Medical History Asthma CHF (congestive heart failure) COPD (chronic obstructive pulmonary disease) COVID-19 December 2019, mild Dementia Depression Essential tremor History of anal fissures Hypertension Morbid obesity Surgical History History of colonoscopy (~2009) History of esophagogastroduodenoscopy (EGD) (~12/2018) History of hemorrhoidectomy History of knee surgery (~2010) Family History Mother Diabetes Sister Diabetes Daughter Hypertension Father Heart disease Denies family history of Anesthesia complication Bleeding disorder Social History Smoking and tobacco status: former smoker Quit status (tobacco): has quit using tobacco Second hand smoke exposure: No Alcohol intake: never Adopted: No Caregiver/support person: Yes Lives independently: No (senior living ) Housing: Retirement Marital status: Highest education level completed: High School Graduate service: No Current occupational status: disabled Current occupational exposures/hazards: No Pets and animals: No History of recent travel: No Sexually active: No Current gender identity: Male Jillian/Mosque: Protestant Special jillian needs: No Agree to transfusion: No Financial difficulty paying for basics: Decline to Answer Course Vital Signs: Vital signs: Vital Signs Temperature 97.6 F 09/28/20 13:39 Pulse Rate 81 09/29/20 05:14 Respiratory Rate 16 09/29/20 05:14 Blood Pressure 108/79 09/29/20 05:14 Pulse Oximetry 95 09/29/20 05:14 MDM - Psych MDM Narrative: Medical decision making narrative: 80-year-old gentleman checked out to me by Dr. Hanna at shift change. This gentleman evidently had made some threats to the senior living staff. He is essentially bedridden, and is not in a position to carry out any of the threats. He has been calm and cooperative here showing no signs of aggression. He did refuse an EKG and a Covid swab. He does not have DURABLE POWER OF TIP FINISHER paperwork signed. We had a long discussion with his after a couple of attempts to get him a geriatric psychiatry bed at an outside facility. His states that if he has not had significant behavioral problems here and essentially appears at his baseline, he could go back to the senior living. We will attempt discharge at this point. He did have significant urinary retention, and so a Armando catheter was placed, and will go back with him to the senior living. Lab Data: Labs: Lab Results 09/28/20 09/28/20 09/28/20 Range/Units 14:00 14:00 14:30 WBC (4.0-10.0) 10^3/ uL RBC (4.1-5.3) 10^6/u L Hgb (11.7-16.6) g/dL Hct (42.0-52.0) % MCV (80-94) fL MCH (28.0-34.0) pg MCHC (30.0-36.0) g/dL RDW (12.1-15.1) % Plt Count (130-400) 10^3/c mm MPV (7.4-10.4) fL Neut % (Auto) % Lymph % (Auto) % [place] % (Auto) % Eos % (Auto) % Baso % (Auto) % Neut # (Auto) (1.8-7.7) 10^3/u L Lymph # (Auto) (0.8-4.8) 10^3/u L [place] # (Auto) (0.2-0.9) 10^3/u L Eos # (Auto) (0.0-0.8) 10^3/u L Baso # (Auto) (0.0-0.1) 10^3/u L Nucleated RBC % (a uto) % Nucleated RBCs # /100WBC Sodium 136 (136-145) mmol/L Potassium 4.2 (3.5-5.1) mmol/L Chloride 98 (98-107) mmol/L Carbon Dioxide 31 H (22-29) mmol/L Anion Gap 11.2 (5-19) BUN 17 (8-23) mg/dL Creatinine 0.5 L (0.7-1.2) mg/dL GFR Calculation Not Reportable Glucose 97 (65-115) mg/dL Calculated Osmolal ity 283 L (285-295) mOsm/k g Calcium 8.5 (8.5-10.5) mg/dL Total Bilirubin 0.2 (0.15-1.2) mg/dL AST 9 (0-40) U/L ALT 15 (0-41) U/L Alkaline Phosphata se 80 (40-130) IU/L Total Protein 5.9 L (6.6-8.7) g/dL Albumin 3.1 L (3.5-5.2) g/dL Globulin 2.8 (1.3-4.6) g/dL TSH 1.45 (0.27-4.20) uIU/ mL Thyroxine (T4) 6.5 (4.9-10.5) mcg/d L Total T3 92 (76-181) ng/dL Urine Color (Yellow) Urine Appearance (CLEAR) Urine pH (5-7) Ur Specific Gravit y (1.005-1.030) Urine Protein (Negative) Urine Glucose (UA) (Normal) Urine Ketones (Negative) Urine Blood (Negative) Urine Nitrate (Negative) Urine Bilirubin (Negative) Urine Urobilinogen (Negative) mg/dL Ur Leukocyte Grace ase (Negative) Salicylates < 0.3 L (3-10) mg/dL Urine Opiates Scre en (Negative) ng/mL Acetaminophen < 5.0 L (10-30) ug/mL Ur Barbiturates Sc reen (Negative) ng/mL Ur Phencyclidine S crn (Negative) ng/mL Ur Amphetamines Sc reen (Negative) ng/mL U Benzodiazepines Scrn (Negative) ng/mL Urine Cocaine Scre en (Negative) ng/mL U Marijuana (THC) Screen (Negative) ng/mL Ethyl Alcohol < 10 (0-10) mg/dL 09/28/20 09/28/20 09/28/20 Range/Units 14:30 14:30 14:30 WBC 6.0 (4.0-10.0) 10^3/ uL RBC 3.86 L (4.1-5.3) 10^6/u L Hgb 11.4 L (11.7-16.6) g/dL Hct 37.1 L (42.0-52.0) % MCV 96.1 H (80-94) fL MCH 29.5 (28.0-34.0) pg MCHC 30.7 (30.0-36.0) g/dL RDW 15.1 (12.1-15.1) % Plt Count 271 (130-400) 10^3/c mm MPV 10.1 (7.4-10.4) fL Neut % (Auto) 71.9 % Lymph % (Auto) 14.6 % [place] % (Auto) 8.1 % Eos % (Auto) 4.6 % Baso % (Auto) 0.5 % Neut # (Auto) 4.33 (1.8-7.7) 10^3/u L Lymph # (Auto) 0.9 (0.8-4.8) 10^3/u L [place] # (Auto) 0.5 (0.2-0.9) 10^3/u L Eos # (Auto) 0.3 (0.0-0.8) 10^3/u L Baso # (Auto) 0.0 (0.0-0.1) 10^3/u L Nucleated RBC % (a uto) 0 % Nucleated RBCs # 0.0 /100WBC Sodium (136-145) mmol/L Potassium (3.5-5.1) mmol/L Chloride (98-107) mmol/L Carbon Dioxide (22-29) mmol/L Anion Gap (5-19) BUN (8-23) mg/dL Creatinine (0.7-1.2) mg/dL GFR Calculation Glucose (65-115) mg/dL Calculated Osmolal ity (285-295) mOsm/k g Calcium (8.5-10.5) mg/dL Total Bilirubin (0.15-1.2) mg/dL AST (0-40) U/L ALT (0-41) U/L Alkaline Phosphata se (40-130) IU/L Total Protein (6.6-8.7) g/dL Albumin (3.5-5.2) g/dL Globulin (1.3-4.6) g/dL TSH (0.27-4.20) uIU/ mL Thyroxine (T4) (4.9-10.5) mcg/d L Total T3 (76-181) ng/dL Urine Color Straw (Yellow) Urine Appearance Clear (CLEAR) Urine pH 7 (5-7) Ur Specific Gravit y 1.005 (1.005-1.030) Urine Protein Neg (Negative) Urine Glucose (UA) Norm (Normal) Urine Ketones Negative (Negative) Urine Blood Neg (Negative) Urine Nitrate Negative (Negative) Urine Bilirubin Neg (Negative) Urine Urobilinogen Norm (Negative) mg/dL Ur Leukocyte Grace ase Negative (Negative) Salicylates (3-10) mg/dL Urine Opiates Scre en Positive H (Negative) ng/mL Acetaminophen (10-30) ug/mL Ur Barbiturates Sc reen Positive H (Negative) ng/mL Ur Phencyclidine S crn Negative (Negative) ng/mL Ur Amphetamines Sc reen Negative (Negative) ng/mL U Benzodiazepines Scrn Positive H (Negative) ng/mL Urine Cocaine Scre en Negative (Negative) ng/mL U Marijuana (THC) Screen Negative (Negative) ng/mL Ethyl Alcohol (0-10) mg/dL Discharge Plan Discharge Patient Disposition: Home Clinical Impression: Dementia, Acute urinary retention Condition: Stable Prescriptions: No Action furosemide [Lasix] 40 mg tablet 40 mg PO DAILY@0800 RF: 0 ferrous sulfate [iron] 325 mg (65 mg iron) tablet 325 mg PO BID@ RF: 0 sucralfate 1 gram tablet 1 gm PO Q6H RF: 0 polyethylene glycol 3350 [Miralax] 17 gram/dose powder 17 gm PO DAILY@08 RF: 0 acetaminophen [Tylenol] 325 mg tablet 650 mg PO Q6H PRN (Reason: Pain) RF: 0 tamsulosin [Flomax] 0.4 mg capsule 0.4 mg PO BID@ RF: 0 morphine concentrate 100 mg/5 mL (20 mg/mL) Solution 5 mg PO Q2H PRN (Reason: Pain) RF: 0 naloxone 0.4 mg/mL Solution See Rx Instructions .ROUTE .COMPLEX RF: 0 risperidone 0.25 mg Tablet 0.25 mg PO BID@0800,1999 RF: 0 docusate sodium [Colace] 100 mg capsule 200 mg PO DAILY@1999 PRN (Reason: prn) RF: 0 albuterol sulfate 2.5 mg/0.5 mL solution for nebulization 2.5 mg inhalation Q6H PRN (Reason: Wheezing) RF: 0 pantoprazole 40 mg tablet,delayed release (DR/EC) 40 mg PO BID Qty: 0 RF: 0 fluticasone propion-salmeterol [Advair Diskus] 250-50 mcg/dose Blister With Device 1 inh INHALATION Q12H RF: 0 ondansetron HCl [Zofran] 4 mg Tablet 4 mg PO Q6H PRN (Reason: Nausea) RF: 0 Micro-Guard 2 % Powder 1 applic TOPICAL BID@ RF: 0 melatonin 3 mg Tablet 3 mg PO BEDTIME@1999 RF: 0 tramadol [Ultram] 50 mg Tablet 50 mg PO BID PRN (Reason: Pain) RF: 0 alprazolam 0.5 mg Tablet 0.5 mg PO BEDTIME@1999 RF: 0 primidone 250 mg Tablet 250 mg PO TID@ RF: 0 bisacodyl [Dulcolax (bisacodyl)] 10 mg Suppository 10 mg ID DAILY PRN (Reason: Constipation) RF: 0 olopatadine 0.1 % Drops 1 drp OPHTHALMIC (EYE) BID@ RF: 0 Fleet Enema 19-7 gram/118 mL Enema 118 ml ID DAILY PRN (Reason: Constipation) RF: 0 bisacodyl [Dulcolax (bisacodyl)] 5 mg Tablet,Delayed Release (Dr/Ec) 5 mg PO DAILY PRN (Reason: Constipation) RF: 0 metoprolol tartrate 25 mg Tablet 25 mg PO Q12H RF: 0 Preparation H 0.25-14-74.9 % Ointment 1 applic ID BID PRN (Reason: Hemorrhoids) RF: 0 potassium chloride 20 mEq Tablet Extended Release 20 meq PO BID@ RF: 0 Discharge Orders: Discharge ED (Routine); Ordered 09/29/20 Ordered By: Kyler Cooper Referrals: Dania Goldberg MD [Primary Care Provider] - 4-7 days Patient Instructions: Urinary Retention in Men (ED), Dementia (ED), Armando Catheter Placement and Care (ED) Activity Restrictions/Additional Instructions: Return for fever, worsening mental status, worsening behaviors. Coding Level of Care Code ED Stone Sandblaster for Tangela Fwd Exam Comprehensive
[2020-09-28 14:46] VITALS: RESP 15
[2020-09-28 14:51] LABS: Add Urine Microscopic? NO; Charge for UA Resulting for Rev
[2020-09-28 14:55] LABS: Basophils % 0.5 %; Eosinophils # 0.3 10^3/uL (0.0-0.8); Eosinophils % 4.6 %; Hematocrit 37.1 % (42.0-52.0); Hemoglobin 11.4 g/dL (11.7-16.6); Lymphocytes # 0.9 10^3/uL (0.8-4.8); Lymphocytes % 14.6 %; Mean Corpuscular HGB Conc 30.7 g/dL (30.0-36.0); Mean Corpuscular Hemoglobin 29.5 pg (28.0-34.0); Mean Corpuscular Volume 96.1 fL (80-94); Mean Platelet Volume 10.1 fL (7.4-10.4); Monocytes # 0.5 10^3/uL (0.2-0.9); Monocytes % 8.1 %; Neutrophils # 4.33 10^3/uL (1.8-7.7); Neutrophils % 71.9 %; Nucleated Red Blood Cells % 0 %; Platelet Count 271 10^3/cmm (130-400); Red Blood Count 3.86 10^6/uL (4.1-5.3); Red Cell Distribution Width 15.1 % (12.1-15.1)
[2020-09-28 15:12] LABS: Bilirubin Urine Neg (Negative); Blood Urine Neg (Negative); Glucose Urine UA Norm (Normal); Ketones Urine Negative (Negative); Leukocyte Esterase Urine Negative (Negative); Nitrate Urine Negative (Negative); Protein Urine Neg (Negative); Specific Gravity, Urine 1.005 (1.005-1.030); Urine Appearance Clear (CLEAR); Urine Color Straw (Yellow); Urobilinogen Urine Norm (Negative); pH Urine 7 (5-7)
[2020-09-28 15:17] LABS: Alanine Aminotransferase 15 U/L (0-41); Albumin Level 3.1 g/dL (3.5-5.2); Alkaline Phosphatase 80 IU/L (40-130); Anion Gap 11.2 (5-19); Aspartate Amino Transferase 9 U/L (0-40); Blood Urea Nitrogen 17 mg/dL (8-23); Calcium 8.5 mg/dL (8.5-10.5); Carbon Dioxide 31 mmol/L (22-29); Chloride 98 mmol/L (98-107); Globulin 2.8 g/dL (1.3-4.6); Glucose 97 mg/dL (65-115); Osmolality Calculated 283 mOsm/kg (285-295); Potassium 4.2 mmol/L (3.5-5.1); Sodium 136 mmol/L (136-145); Thyroid Stimulating Hormone 1.45 uIU/mL (0.27-4.20); Total Bilirubin 0.2 mg/dL (0.15-1.2); Total Protein 5.9 g/dL (6.6-8.7)
[2020-09-28 15:21] LABS: Amphetamines Screen Urine Negative (Negative); Barbiturates Screen Urine Positive (Negative); Benzodiazepines Screen Urine Positive (Negative); Cocaine Screen Urine Negative (Negative); Opiate Screen Urine Positive (Negative); PCP Screen Urine Negative (Negative); THC Screen Urine Negative (Negative)
[2020-09-28 15:22] LABS: Acetaminophen < 5.0 ug/mL (10-30); Alcohol Level < 10 mg/dL (0-10); Salicylate < 0.3 mg/dL (3-10)
--- NOTE | 2020-09-28 16:39 | XR_ITS ---
WS: [id number] CHEST XRAY TECHNIQUE: Portable chest. CLINICAL INFORMATION: DYSPNEA COMPARISON: September 18, 2020 FINDINGS: Shallow inspiration. Patient is rotated. Heart: Stable cardiomegaly. Lungs: Elevation right hemidiaphragm. Chronic emphysematous changes. No acute pulmonary infiltrates. No focal pneumonia or pleural fluid. Bones: Osteopenia. XR/XR chest 1V portable [id number] IMPRESSION: Shallow inspiration. No acute-appearing pulmonary infiltrates.
[2020-09-29 02:00] VITALS: BP 110/79; PULSE 74; RESP 14; O2SAT 95
[2020-09-29 04:00] VITALS: BP 108/79; PULSE 81; RESP 16; O2SAT 95
[2020-09-29 05:14] VITALS: BP 108/79; PULSE 81; RESP 16; O2SAT 95
[2020-09-29 06:33] LABS: T4 Total 6.5 mcg/dL (4.9-10.5)
[2020-09-29 09:18] LABS: T3 Total 92 ng/dL (76-181)
== END 2020-09-29 05:00 | disposition home or self-care (01) ==
PROVIDERS: Family Medicine; Emergency Provider Emergency Medicine; PCP Family Medicine
DX: R33.9 Retention of urine, unspecified (principal); F03.90 Unspecified dementia, unspecified severity, without behavioral disturbance, psychotic disturbance, mood disturbance, and anxiety; I11.0 Hypertensive heart disease with heart failure; I50.9 Heart failure, unspecified; J44.9 Chronic obstructive pulmonary disease, unspecified; E66.01 Morbid (severe) obesity due to excess calories; Z68.30 Body mass index [BMI] 30.0-30.9, adult; Z87.891 Personal history of nicotine dependence; Z86.16 Personal history of COVID-19
CPT/HCPCS: 51702; 71045; 80053; 80306; 80307; 81003; 84436; 84443; 84480; 85025; 99284

== ENCOUNTER 2020-10-26 16:57 | Outpatient (CLI) | payer MEDICARE, OTHER, SELFPAY ==
[2020-10-26 17:14] LABS: Basophils % 0.1 %; Hematocrit 37.2 % (42.0-52.0); Hemoglobin 11.7 g/dL (11.7-16.6); Lymphocytes # 0.4 10^3/uL (0.8-4.8); Lymphocytes % 2.1 %; Mean Corpuscular HGB Conc 31.5 g/dL (30.0-36.0); Mean Corpuscular Hemoglobin 28.4 pg (28.0-34.0); Mean Corpuscular Volume 90.3 fl (80-94); Mean Platelet Volume 10.3 fL (7.4-10.4); Monocytes # 0.8 10^3/uL (0.2-0.9); Neutrophils # 18.69 10^3/uL (1.8-7.7); Neutrophils % 93.3 %; Nucleated Red Blood Cells % 0 %; Platelet Count 310 10^3/cmm (130-400); Red Blood Count 4.12 10^6/uL (4.1-5.3); Red Cell Distribution Width 14.6 % (12.1-15.1); White Blood Count 20.1 10^3/uL (4.0-10.0)
[2020-10-26 17:52] LABS: Blood Urine 3+ (Negative); Glucose Urine UA Norm (Normal); Ketones Urine 1+ (Negative); Protein Urine 1+ (Negative); Specific Gravity, Urine 1.005 (1.005-1.030); Urine Appearance Cloudy (CLEAR); Urine Color Yellow (Yellow); pH Urine 7 (5-7)
[2020-10-26 17:53] LABS: Add Urine Microscopic? YES; Amorphous Sediment Urine 4+ /hpf; Bacteria Urine 3+ /hpf; Bilirubin Urine 1+ (Negative); Leukocyte Esterase Urine 2+ (Negative); Mucus Urine TRACE /hpf; Nitrate Urine Negative (Negative); Squamous Epithelial Cell Urine 0-4 /hpf (0-5); Urobilinogen Urine 1 mg/dL (Negative); WBC Urine TOO NUMEROUS TO CNT /hpf (0-5)
[2020-10-26 17:54] LABS: Add Urine Culture? Yes
[2020-10-26 17:57] LABS: Alanine Aminotransferase 20 U/L (0-41); Albumin Level 2.8 g/dL (3.5-5.2); Alkaline Phosphatase 84 IU/L (40-130); Anion Gap 15.4 (5-19); Aspartate Amino Transferase 12 U/L (0-40); Blood Urea Nitrogen 30 mg/dL (8-23); Calcium 8.5 mg/dL (8.5-10.5); Carbon Dioxide 27 mmol/L (22-29); Chloride 99 mmol/L (98-107); Globulin 3.4 g/dL (1.3-4.6); Glucose 147 mg/dL (65-115); Osmolality Calculated 293 mOsm/kg (285-295); Potassium 4.4 mmol/L (3.5-5.1); Sodium 137 mmol/L (136-145); Total Bilirubin 0.2 mg/dL (0.15-1.2); Total Protein 6.2 g/dL (6.6-8.7)
== END 2020-10-26 16:58 | disposition home or self-care (01) ==
PROVIDERS: PCP Family Medicine; Visit Provider Nurse Practitioner Family
DX: R00.0 Tachycardia, unspecified (principal)
CPT/HCPCS: 80053; 81001; 85025; 87077; 87086; 87186

== ENCOUNTER 2021-06-15 09:18 | Emergency (ER) | payer OTHER, MEDICARE, SELFPAY ==
[2021-06-15 09:21] VITALS: BP 124/90; PULSE 74; RESP 16; TEMP 36.3; O2SAT 98; BMI 27.8
--- NOTE | 2021-06-15 09:35 | XRR_ITS ---
PROCEDURE INFORMATION: Exam: XR Chest Exam date and time: 06/15/2021 10:14 AM Age: 81 years old Clinical indication: Other: Coughing up blood; Additional info: Gi bleeding TECHNIQUE: Imaging protocol: XR of the chest. Views: 1 view. COMPARISON: CR XR chest 1V portable [id number] 09/28/2020 4:40 PM FINDINGS: Lungs: Unremarkable. No consolidation. Pleural spaces: Unremarkable. No pleural effusion. No pneumothorax. Heart/Mediastinum: Unremarkable. No cardiomegaly. Bones/joints: Unremarkable. Comparison to prior examination similar findings is seen. XR/XR chest 1V portable [id number] IMPRESSION: No acute findings.
--- NOTE | 2021-06-15 09:35 | W.ED.GIBLEED ---
HPI - GI Bleed General: Chief complaint: GI Bleed Stated complaint: VOMITING BLOOD Time Seen by Provider: 06/15/21 09:29 Source: patient and EMS Mode of arrival: EMS Limitations: no limitations History of Present Illness: This patient was transferred from a long-term care facility because of question of possible gastrointestinal bleeding. Patient allegedly was coughing or spitting up some bloody mucus earlier today. There is a question whether he has a prior history of gastrointestinal bleeding. He is nonambulatory and has a chronic indwelling Armando. He also has a history of congestive heart failure and COPD. Review of prior records revealed that he had a similar occurrence in August 2020 which was treated symptomatically and stabilized. Onset (ago): unknown Exacerbating factors: none Context: history of GI bleed Associated symptoms: Reports easy bruising and rash; Denies abdominal pain, chills, fever(s), headache(s), nausea or vomiting Review of Systems Const: Denies: fever(s) or chills Eyes: Denies: change in vision ENMT: Denies: throat pain or odynophagia Card: Denies: chest pain, palpitations or irregular heart rhythm Resp: Denies: dyspnea, productive cough or non-productive cough GI: Reports: change in stool character and melena; Denies: abdominal pain, nausea, vomiting or hematemesis : Reports: urinary incontinence (Patient has indwelling Armando catheter); Denies: flank pain Musc: Denies: neck pain, back pain or extremity pain Skin/Breast: Reports: rash, erythema and non-healing lesions Neuro: Reports: weakness in extremities; Denies: headache(s) Maninder/Lymph: Reports: easy bruising; Denies: petechiae PFS ED PFSH: Medical History Asthma CHF (congestive heart failure) COPD (chronic obstructive pulmonary disease) COVID-19 December 2019, mild Dementia Depression Essential tremor History of anal fissures Hypertension Morbid obesity Urinary retention Surgical History History of colonoscopy (~2009) History of esophagogastroduodenoscopy (EGD) (~12/2018) History of hemorrhoidectomy History of knee surgery (~2010) Family History Mother Diabetes Sister Diabetes Daughter Hypertension Father Heart disease Denies family history of Anesthesia complication Bleeding disorder Social History Smoking and tobacco status: former smoker Quit status (tobacco): has quit using tobacco Second hand smoke exposure: No Alcohol intake: never Adopted: No Caregiver/support person: Yes Lives independently: No ([facility] ) Housing: Intermediate Marital status: Highest education level completed: High School Graduate service: No Current occupational status: disabled Current occupational exposures/hazards: No Pets and animals: No History of recent travel: No Sexually active: No Jillian/Yarsani: Yarsanism Special jillian needs: No Agree to transfusion: No Financial difficulty paying for basics: Decline to Answer Physical Exam Narrative: EXAM NARRATIVE: Elderly gentleman who makes good eye contact and is alert. He does answer questions as asked. Const: COMMON NORMALS: no acute distress and alert ORIENTATION/CONSCIOUSNESS: Yes oriented to person HENMT: COMMON NORMALS: normocephalic, atraumatic, Normal nasal mucous membranes and turbinates present and moist oral mucous membranes HEAD & SCALP: normocephalic and atraumatic NOSE: Normal nasal mucous membranes and turbinates present Eye: COMMON NORMALS: Equal, round and reactive pupils present, EOMs intact bilaterally, conjunctivae normal and no scleral icterus CONJUNCTIVA: Yes conjunctivae normal PUPIL: Yes Equal, round and reactive pupils present Neck/C-Spine: COMMON NORMALS: full ROM, no JVD and No carotid bruits Chest: COMMONS NORMALS: normal inspection of the chest Resp: COMMON NORMALS: normal respiratory effort, No use of accessory muscles and clear to auscultation bilaterally AUSCULTATION: clear to auscultation bilaterally Cardio: COMMON NORMALS: no JVD, regular rhythm, No gallops present (Cardio) and No murmurs present (Cardio) RHYTHM: regular rhythm GI: COMMON NORMALS: Normal to inspection, nondistended, normoactive bowel sounds present, Soft to palpation, non-tender, No hepatosplenomegaly present, no masses and no bruits PALPATION: Yes Soft to palpation and Yes No hepatosplenomegaly present RECTAL EXAM: Yes Excoriation present (GI) OTHER: He has a pressure ulcer noted on his left gluteal region just lateral to his gluteal cleft. It appears to be approximately 3 cm in diameter. The ulcer appears to be into the depth of the subcutaneous tissue. There is significant amount of melanotic stool in the perineal region. : OTHER: Armando catheter in situ Back/Pelvis: COMMON NORMALS: thoracic and lumbar spine normal to inspection and no thoracic nor lumbar tenderness Extremity: COMMON NORMALS: capillary refill normal and no pedal edema NARRATIVE EXTREMITY EXAM: He has muscle wasting of the lower extremities. No lesions or deformities noted. Neuro: SENSORIUM/ORIENTATION: Yes alert and Yes oriented to person SPEECH: speech normal Course Reevaluation(s): Reevaluation #1: Patient is very comfortable. His vital signs are very reassuring. I have discussed current presentation with the hospitalist who advises me that we do not have surgery coverage and therefore should he require any intervention should he have any change in his hemoglobin then she would have to transfer to another facility. I have reviewed this with the patient and spouse. I have offered to repeat another hemoglobin now 3+ hours after initial hemoglobin to see if there is any change of significance. At that time we will discuss possible transfer versus observing at the long-term care facility. This is the preference of the spouse as well as the patient depending upon his repeat hemoglobin. Time: 12:20 Reevaluation #2: Patient remained stable. Hemoglobin and hematocrit are essentially unchanged. I discussed continued observation which would have to be in a location other than this facility with the patient and family. Given his current clinical picture with normal vital signs unchanged hemoglobin I think it is reasonable alternative to observe him in a long-term care facility. After discussion of the pros and cons both patient and family agreed to this plan. We will add an additional H2 delonte to his current regimen. It should be noted that he is not allergic to H2 blockers that apparently sometime in the past when he took cimetidine he had loose stools. Vital Signs: Vital signs: Vital Signs Temperature 97.4 F L 06/15/21 09:21 Pulse Rate 74 06/15/21 09:21 Respiratory Rate 20 H 06/15/21 11:05 Blood Pressure 124/90 06/15/21 09:21 Pulse Oximetry 100 06/15/21 11:05 MDM - GI Bleed Medical Decision Making Patient presents with history of gastrointestinal bleeding. Today he has significant amount of melanotic stool. His history has been variable he has had some severe gastrointestinal bleeds in the past the most recent one in August 2020 was mild and did not require any intervention however I think because of the uncertainty of what this may represent it is reasonable to put him in observation status and follow his hemoglobin. I discussed this with patient and spouse who are in agreement with that plan. Will review with hospitalist. After continued observation in the emergency department and repeat hemoglobin which is unchanged the family decided they would like for him to go back to long-term care facility for continued observation rather than being transferred to another facility. They acknowledged risks and benefits of this plan and have intact decision-making capacity. Medical Records I reviewed the patient's medical records. Lab Data I reviewed the patient's lab results. : 06/15/21 12:49 06/15/21 09:25 Radiology Impressions Chest X-Ray 06/15/21 09:35 IMPRESSION: No acute findings. Laboratory Results WBC 7.8 10^3/uL (4.0-10.0) 06/15/21 09:25 RBC 3.90 10^6/uL (4.1-5.3) L 06/15/21 09:25 Hgb 10.8 g/dL (11.7-16.6) L 06/15/21 12:49 Hct 34.8 % (42.0-52.0) L 06/15/21 12:49 MCV 90.3 fl (80-94) 06/15/21 09:25 MCH 27.9 pg (28.0-34.0) L 06/15/21 09:25 MCHC 31.0 g/dL (30.0-36.0) 06/15/21 09:25 RDW 17.0 % (12.1-15.1) H 06/15/21 09:25 Plt Count 338 10^3/cmm (130-400) 06/15/21 09:25 MPV 9.9 fL (7.4-10.4) 06/15/21 09:25 Neut % (Auto) 75.0 % 06/15/21 09:25 Lymph % (Auto) 12.3 % 06/15/21 09:25 [place] % (Auto) 8.8 % 06/15/21 09:25 Eos % (Auto) 3.2 % 06/15/21 09:25 Baso % (Auto) 0.4 % 06/15/21 09:25 Neut # (Auto) 5.87 10^3/uL (1.8-7.7) 06/15/21 09:25 Lymph # (Auto) 1.0 10^3/uL (0.8-4.8) 06/15/21 09:25 [place] # (Auto) 0.7 10^3/uL (0.2-0.9) 06/15/21 09:25 Eos # (Auto) 0.3 10^3/uL (0.0-0.8) 06/15/21 09:25 Baso # (Auto) 0.0 10^3/uL (0.0-0.1) 06/15/21 09:25 Nucleated RBC % (auto) 0 % 06/15/21 09:25 Nucleated RBCs # 0.0 /100WBC 06/15/21 09:25 Sodium 133 mmol/L (136-145) L 06/15/21 09:25 Potassium 3.7 mmol/L (3.5-5.1) 06/15/21 09:25 Chloride 96 mmol/L (98-107) L 06/15/21 09:25 Carbon Dioxide 27 mmol/L (22-29) 06/15/21 09:25 Anion Gap 13.7 (5-19) 06/15/21 09:25 BUN 22 mg/dL (8-23) 06/15/21 09:25 Creatinine 0.5 mg/dL (0.7-1.2) L 06/15/21 09:25 GFR Calculation Not Reportable 06/15/21 09:25 Glucose 130 mg/dL (65-115) H 06/15/21 09:25 Calculated Osmolality 281 mOsm/kg (285-295) L 06/15/21 09:25 Calcium 8.2 mg/dL (8.5-10.5) L 06/15/21 09:25 Total Bilirubin 0.2 mg/dL (0.15-1.2) 06/15/21 09:25 AST 9 U/L (0-40) 06/15/21 09:25 ALT 8 U/L (0-41) 06/15/21 09:25 Alkaline Phosphatase 72 IU/L (40-130) 06/15/21 09:25 Total Protein 6.3 g/dL (6.6-8.7) L 06/15/21 09:25 Albumin 3.0 g/dL (3.5-5.2) L 06/15/21 09:25 Globulin 3.3 g/dL (1.3-4.6) 06/15/21 09:25 Blood Type O Negative 06/15/21 09:25 Rho(D) Type Negative 06/15/21 09:25 Antibody Screen Negative 06/15/21 09:25 Imaging Data CXR: My impression: Chest x-ray does not appear to show any obvious acute disease at this time. EKG Data EKG 1: I personally reviewed and interpreted this EKG as follows: EKG interpretation time: 09:54 Interpretation: Patient has ventricular rate of 73 bpm. Should be noted that she she has some baseline variability in the tracing. She has a normal NV and QRS and QTc intervals. She has no acute ST-T wave changes noted. Discharge Plan Discharge Patient Disposition: Home Clinical Impression: Pressure injury of left buttock, stage 3, Hematochezia Condition: Stable Prescriptions: New Pepcid 40 mg tablet 40 mg PO DAILY Qty: 30 0RF No Action furosemide [Lasix] 40 mg tablet 40 mg PO DAILY@0800 0RF ferrous sulfate [iron] 325 mg (65 mg iron) tablet 325 mg PO BID@, 0RF polyethylene glycol 3350 [Miralax] 17 gram/dose powder 17 gm PO DAILY@08 0RF acetaminophen [Tylenol] 325 mg tablet 650 mg PO Q6H PRN (Reason: Pain) 0RF tamsulosin [Flomax] 0.4 mg capsule 0.4 mg PO BID@08,20 0RF morphine concentrate 100 mg/5 mL (20 mg/mL) Solution 10 mg PO Q2H PRN (Reason: Pain) 0RF naloxone 0.4 mg/mL Solution See Rx Instructions .ROUTE .COMPLEX 0RF Rx Instructions: ADMINISTER IM IN DELTOID OR THIGH, MAY REPEAT EVERY 3-5 3 DOSES. CALL 911 IF NO RESPONSE. risperidone 0.25 mg Tablet 0.25 mg PO BID@0800,2000 0RF docusate sodium [Colace] 100 mg capsule 200 mg PO DAILY@1999 PRN (Reason: prn) 0RF pantoprazole 40 mg tablet,delayed release (DR/EC) 40 mg PO BID Qty: 0 0RF fluticasone propion-salmeterol [Advair Diskus] 250-50 mcg/dose Blister With Device 1 inh INHALATION Q12H 0RF Rx Instructions: at 799, 1999 Micro-Guard 2 % Powder 1 applic TOPICAL BID@, 0RF melatonin 3 mg Tablet 3 mg PO BEDTIME@1999 0RF tramadol [Ultram] 50 mg Tablet 50 mg PO BID PRN (Reason: Pain) 0RF primidone 250 mg Tablet 250 mg PO TID@,, 0RF bisacodyl [Dulcolax (bisacodyl)] 10 mg Suppository 10 mg NV DAILY PRN (Reason: Constipation) 0RF olopatadine 0.1 % Drops 1 drp OPHTHALMIC (EYE) BID@, 0RF Fleet Enema 19-7 gram/118 mL Enema 118 ml NV DAILY PRN (Reason: Constipation) 0RF bisacodyl [Dulcolax (bisacodyl)] 5 mg Tablet,Delayed Release (Dr/Ec) 5 mg PO DAILY PRN (Reason: Constipation) 0RF potassium chloride 20 mEq Tablet Extended Release 20 meq PO BID@, 0RF metoprolol tartrate 25 mg tablet 25 mg PO BID 0RF Rx Instructions: at 799,1999 ipratropium-albuterol 0.5 mg-3 mg(2.5 mg base)/3 mL Solution For Nebulization 3 ml INHALATION Q6H PRN (Reason: shortness of breath) 0RF Vitamin C 500 mg Tablet 500 mg PO DAILY 0RF ketoconazole 2 % Cream 1 applic TOPICAL BID 0RF Discharge Orders: Discharge ED (Routine); Ordered 06/15/21 Ordered By: Isrrael Edgar Referrals: Dania Goldberg MD [Primary Care Provider] - (please obtain repeat Hb/Hct midweek of june 17) Discharge Diet: Usual diet Discharge Activity: Resume usual activity Patient Instructions: Opioid Safety Activity Restrictions/Additional Instructions: Take all previously prescribed medications. We have added Pepcid 40 mg daily in addition to his previously prescribed medications. Should he continue to have dark or bloody stools or other concerns he is welcome to return to the emergency department for reevaluation. Ensure that he gets a repeat CBC on Thursday, June 19 or as needed. Coding Level of Care Code ED Mechanical Energy Engineer for Chg Fwd Exam Comprehensive
--- NOTE | 2021-06-15 09:36 | ECG_ITS ---
[facility] Test Date: 2021-06-15 Pat Name: Sid Salas Department: Room: Gender: Male Ssis Etl Developer: : 1940 Requested By: Isrrael Edgar Order Number: [id number] Jose MD: Oneyda Anders M.D. Measurements Intervals [place] Rate: 73 P: 48 DE: 167 QRS: 37 QRSD: 92 T: 46 QT: 375 QTc: 414 Interpretive Statements SINUS RHYTHM Compared to ECG 09/18/2020 23:10:06 No significant changes Electronically Signed On 06-15-2021 15:00:34 CDT by Oneyda Anders M.D. [email or web address]
[2021-06-15 09:53] LABS: Basophils % 0.4 %; Eosinophils # 0.3 10^3/uL (0.0-0.8); Eosinophils % 3.2 %; Hematocrit 35.2 % (42.0-52.0); Hemoglobin 10.9 g/dL (11.7-16.6); Lymphocytes % 12.3 %; Mean Corpuscular Hemoglobin 27.9 pg (28.0-34.0); Mean Corpuscular Volume 90.3 fl (80-94); Mean Platelet Volume 9.9 fL (7.4-10.4); Monocytes # 0.7 10^3/uL (0.2-0.9); Monocytes % 8.8 %; Neutrophils # 5.87 10^3/uL (1.8-7.7); Nucleated Red Blood Cells % 0 %; Platelet Count 338 10^3/cmm (130-400); White Blood Count 7.8 10^3/uL (4.0-10.0)
[2021-06-15 10:01] LABS: Alanine Aminotransferase 8 U/L (0-41); Alkaline Phosphatase 72 IU/L (40-130); Anion Gap 13.7 (5-19); Aspartate Amino Transferase 9 U/L (0-40); Blood Urea Nitrogen 22 mg/dL (8-23); Calcium 8.2 mg/dL (8.5-10.5); Carbon Dioxide 27 mmol/L (22-29); Chloride 96 mmol/L (98-107); Globulin 3.3 g/dL (1.3-4.6); Glucose 130 mg/dL (65-115); Osmolality Calculated 281 mOsm/kg (285-295); Potassium 3.7 mmol/L (3.5-5.1); Sodium 133 mmol/L (136-145); Total Bilirubin 0.2 mg/dL (0.15-1.2); Total Protein 6.3 g/dL (6.6-8.7)
[2021-06-15] MEDS: pantoprazole 40 mg SDV 80 MG IVP (10:11)
[2021-06-15 11:05] VITALS: RESP 20; O2SAT 100
[2021-06-15] MEDS: morphine 4 mg/mL SDV 1 mL 2 MG IVP ×2 (11:05→15:07)
[2021-06-15 13:05] LABS: Hematocrit 34.8 % (42.0-52.0); Hemoglobin 10.8 g/dL (11.7-16.6)
[2021-06-15 15:07] VITALS: RESP 18
== END 2021-06-15 15:24 | disposition home or self-care (01) ==
PROVIDERS: Emergency Provider Emergency Medicine; PCP Family Medicine
DX: K92.1 Melena (principal); L89.323 Pressure ulcer of left buttock, stage 3; J44.9 Chronic obstructive pulmonary disease, unspecified; I11.0 Hypertensive heart disease with heart failure; I50.9 Heart failure, unspecified; Z96.0 Presence of urogenital implants; Z87.891 Personal history of nicotine dependence
CPT/HCPCS: 71045; 80053; 85014; 85018; 85025; 86850; 86900; 93005; 96374; 96375; 96376; 99283; C9113; J2270